=== PATIENT | male | born 1940 | race Caucasian/White ===

== ENCOUNTER 2016-12-04 09:38 | Outpatient (CLI) | payer MEDICARE, OTHER ==
[2016-12-04 17:55] LABS: BASOPHILS % (AUTO) 0.2 %; EOSINOPHILS # (AUTO) 0.1 10^3/uL (0.0-0.7); EOSINOPHILS % (AUTO) 3.2 %; HCT - HEMATOCRIT 40.9 % (42.0-52.0); HGB - HEMOGLOBIN 14.2 g/dL (14.0-18.0); LYMPHOCYTES # (AUTO) 1.3 10^3/uL (1.5-3.5); LYMPHOCYTES % (AUTO) 39.6 %; MEAN CORPUSCULAR HEMOGLOBIN 34.6 pg (27.0-31.0); MEAN CORPUSCULAR HGB CONC 34.6 g/dL (32.0-36.0); MEAN PLATELET VOLUME 7.9 fL (7.4-11.4); MONOCYTES # (AUTO) 0.1 10^3/uL (0.0-1.0); MONOCYTES % (AUTO) 3.7 %; NEUTROPHILS # (AUTO) 1.7 10^3/uL (1.5-6.6); NEUTROPHILS % (AUTO) 53.3 %; NUCLEATED RED BLOOD CELLS AUTO 0.2 /100WBC; RED CELL DISTRIBUTION WIDTH 14.2 % (12.0-15.0); UNCORRECTED WHITE BLOOD COUNT 3.2 x10^3/uL; WHITE BLOOD COUNT 3.2 x10^3/uL (4.8-10.8)
[2016-12-04 18:51] LABS: ALBUMIN/GLOBULIN RATIO 1.4 (1.0-2.2); BILIRUBIN,TOTAL 1.4 mg/dL (0.2-1.0); BUN - BLOOD UREA NITROGEN 15 mg/dL (6-20); CALCIUM 8.7 mg/dL (8.5-10.3); CARBON DIOXIDE - CO2 26 mmol/L (21-32); CHLORIDE 104 mmol/L (101-111); CHOL/HDL RATIO 2.3 (<5.0); CHOLESTEROL 126 mg/dL; CREATININE 0.8 mg/dL (0.6-1.2); GFR - MDRD 94 (>89); GLUCOSE 115 mg/dL (70-100); HDL CHOLESTEROL 54 mg/dL; LDL/HDL RATIO 1.2 (<3.6); POTASSIUM 4.4 mmol/L (3.5-5.0); SODIUM 137 mmol/L (135-145); TOTAL PROTEIN 6.4 g/dL (6.7-8.2); TRIGLYCERIDES 45 mg/dL; VLDL CHOLESTEROL 9 mg/dL
[2016-12-04 19:08] LABS: HEMOGLOBIN A1C 0.48 g/dL
== END 2016-12-04 09:39 | disposition home or self-care (01) ==
LOC: LAB.F 09:38
PROVIDERS: ATTEND Family Medicine
DX: I48.0 Paroxysmal atrial fibrillation (principal); R73.9 Hyperglycemia, unspecified; I25.10 Atherosclerotic heart disease of native coronary artery without angina pectoris; Z95.1 Presence of aortocoronary bypass graft
CPT/HCPCS: 36415; 80053; 80061; 82043; 83036; 85025; G0103; 84153

== ENCOUNTER 2017-04-22 16:00 | Outpatient (CLI) | payer MEDICARE, OTHER | END 2017-04-22 16:01 | disposition home or self-care (01) | LOC: DI 16:00 | PROVIDERS: ATTEND Internal Medicine Cardiovascular Disease | DX: Z53.9 Procedure and treatment not carried out, unspecified reason (principal) ==

== ENCOUNTER 2017-04-23 11:05 | Outpatient (CLI) | payer MEDICARE, OTHER | END 2017-04-23 11:06 | disposition home or self-care (01) | LOC: DI 11:05 | PROVIDERS: ATTEND Internal Medicine Cardiovascular Disease | DX: R06.00 Dyspnea, unspecified (principal); I51.9 Heart disease, unspecified; I35.0 Nonrheumatic aortic (valve) stenosis; I77.810 Thoracic aortic ectasia | CPT/HCPCS: 93306 ==

== ENCOUNTER 2017-05-20 09:36 | Outpatient (CLI) | payer MEDICARE, OTHER ==
[~2017-05-20 09:36] MED LIST: REGADENOSON 0.4 MG/5 ML SYRINGE IVP ONE
[2017-05-20] MEDS ORDERED: REGADENOSON 0.4 MG/5 ML SYRINGE IVP ONE (13:30)
--- NOTE | 2017-05-20 14:21 | Nuclear Medicine Report ---
EXAM: SINGLE-ISOTOPE PHARMACOLOGICAL STRESS TEST WITH REGADENOSON. SINGLE-ISOTOPE AND ONE-DAY REST/STRESS M YOCARDIAL PERFUSION SCANS WITH TOMOGRAPHIC IMAGING, QUANTITATIVE ANALYSIS, WALL MOTION ANALYSIS AND C ALCULATION OF EJECTION FRACTION. EXAM DATE: 05/20/2017 01:32 PM. CLINICAL HISTORY: Dyspnea on exertion, coronary artery disease. COMPARISON: None available. TECHNIQUE: After the intravenous administration of 10.4 mCi of Tc-99m sestamibi, a rest myocardial perfusion sca n was done with tomography. Motion correction was applied when appropriate. After an appropriate delay, pharmacological stress was performed with the infusion of 0.4 mg regadeno son per protocol. According to protocol, 43 mCi of Tc-99m sestamibi was injected for stress myocardia l perfusion scan. Motion correction was applied when appropriate. Gated tomographic images were obtained for wall motion analysis and computation of left ventricular e jection fraction. FINDINGS: Images show a small mild distal anteroseptal defect, larger on the rest images compared to the stress images, attributed to attenuation artifact. There is a small fixed inferior apical perfusi on defect. No convincing reversible perfusion defects are appreciated. Wall motion analysis demonstrates no focal wall motion abnormality. The left ventricular end-diastolic volume is 116 cc. The left ventricular end-systolic volume is 34 c c. The left ventricular ejection fraction is calculated to be 71%. IMPRESSION: 1. Small fixed apical perfusion defect versus apical thinning. No convincing reversible perfusion def ects. 2. Left ventricular ejection fraction of 71%. 3. Normal segmental and global wall motion. 4. Normal left ventricular cavity size, no change with stress. [facility] Referring Provider Line: [phone] SITE ID: [id number]
[2017-05-20 17:23] VITALS: BP 116/64
--- NOTE | 2017-05-20 18:16 | CARDIAC PROCEDURE NOTE ---
DATE OF SERVICE: 05/20/2017 Dee [address] [facility] PRIMARY CARE PHYSICIAN: Ray Morris MD AMBULANCE DRIVER PARAMEDIC: Iain Freitas MD PROCEDURE: Pharmacologic cardiac stress test. PROCEDURE SYMPTOMS PROCEDURE: Pharmacologic cardiac stress test. PROCEDURE SYMPTOMS: Dyspnea on exertion. CARDIAC RISK FACTORS: Include known coronary artery disease. He has had numerous previous cardiac procedures. CLINICAL HISTORY: A 76-year-old male with known coronary artery disease. He has no current symptoms. He has consumed no caffeine in over 24 hours and there were no pertinent medications needed to be held. INITIAL RESTING VITAL SIGNS: BP 116/64, heart rate 51, height 71 inches, weight 215 pounds, BMI 30.0. PROCEDURE AND FINDINGS: The patient identity and date verified, consent signed, pharmaceutical check. Pharmacologic stress testing was performed with Lexiscan at a dose of 0.4 mg over 10 seconds. The heart rate increased to 57 beats per minute from the infusion. Blood pressure response was normal during the stress procedure. The patient developed mild infusion- related symptoms, which included a "buzzy feeling" and increased tinnitus, and both resolved spontaneously. The resting ECG demonstrated normal sinus rhythm with a borderline first degree AV block, with no ST or T-wave changes. There was no ST segment depression with stress. Prior to the pharmaceutical being given, the patient had one PVC triplet with no recurrence. FINAL IMPRESSIONS 1. Negative electrocardiogram for ischemia in the setting of vasodilator stress. 2. Nondiagnostic stress test for angina. 3. One episode of PVC triplet. DISCUSSION AND RECOMMENDATIONS: Await myocardial perfusion report. TD: 05/20/2017 18:15 REBEKAH
== END 2017-05-20 09:37 | disposition home or self-care (01) ==
LOC: DI 09:36
PROVIDERS: ATTEND Internal Medicine Cardiovascular Disease
DX: I25.10 Atherosclerotic heart disease of native coronary artery without angina pectoris (principal); I48.91 Unspecified atrial fibrillation; R06.00 Dyspnea, unspecified
CPT/HCPCS: 78452; 93017; A9500; J2785; 93016; 93018

== ENCOUNTER 2017-05-31 10:05 | Outpatient (CLI) | payer MEDICARE, OTHER ==
[2017-05-31 19:16] LABS: BUN - BLOOD UREA NITROGEN 15 mg/dL (6-20); CALCIUM 8.6 mg/dL (8.5-10.3); CARBON DIOXIDE - CO2 26 mmol/L (21-32); CHLORIDE 104 mmol/L (101-111); CREATININE 0.7 mg/dL (0.6-1.2); GFR - MDRD 110 (>89); GLUCOSE 104 mg/dL (70-100); SODIUM 136 mmol/L (135-145)
[2017-05-31 19:17] LABS: BASOPHILS % (AUTO) 0.2 %; CRP - C-REACTIVE PROTEIN < 1.0 mg/dL (0-1.0); EOSINOPHILS # (AUTO) 0.1 10^3/uL (0.0-0.7); LYMPHOCYTES # (AUTO) 1.3 10^3/uL (1.5-3.5); MEAN CORPUSCULAR HEMOGLOBIN 34.3 pg (27.0-31.0); MEAN CORPUSCULAR HGB CONC 34.1 g/dL (32.0-36.0); MEAN CORPUSCULAR VOLUME 100.6 fL (80.0-94.0); MEAN PLATELET VOLUME 8.1 fL (7.4-11.4); MONOCYTES # (AUTO) 0.1 10^3/uL (0.0-1.0); MONOCYTES % (AUTO) 3.8 %; NEUTROPHILS # (AUTO) 1.1 10^3/uL (1.5-6.6); PLT - PLATELET COUNT 91 10^3/uL (130-450); RED BLOOD COUNT 4.07 10^6/uL (4.70-6.10); RED CELL DISTRIBUTION WIDTH 15.1 % (12.0-15.0); WHITE BLOOD COUNT 2.6 x10^3/uL (4.8-10.8)
[2017-05-31 21:02] LABS: RBC MORPHOLOGY (MULTIPLE) NORMAL APPEARANCE (NORMAL)
[2017-05-31 21:03] LABS: PLATELET ESTIMATE, MANUAL DECREASED (<130,000) (NORMAL); PLATELET MORPHOLOGY RARE GIANT PLATELETS (NORMAL)
== END 2017-05-31 10:06 | disposition home or self-care (01) ==
LOC: LAB.F 10:05
PROVIDERS: ATTEND Family Medicine
DX: M60.9 Myositis, unspecified (principal)
CPT/HCPCS: 36415; 80048; 85025; 85651; 86140

== ENCOUNTER 2017-08-25 14:53 | Outpatient (CLI) | payer MEDICARE, OTHER ==
--- NOTE | 2017-08-27 11:14 | MRI Report ---
Procedure Date: 08/25/2017 Accession Number: [id number] / [id number] Procedure: MRI - Lumbar Spine W/O CPT Code: FULL RESULT: EXAM: MRI LUMBAR SPINE WITHOUT CONTRAST EXAM DATE: 08/25/2017 02:55 PM. CLINICAL HISTORY: Low back pain. Bilateral leg numbness. COMPARISON: 01/24/2014 CT abdomen and pelvis. TECHNIQUE: Multiplanar, multisequence T1-weighted and fluid-sensitive sequences of the lumbar spine from T12 to S1 without contrast. Other: None. FINDINGS: Alignment: A mild rightward lumbar scoliosis has a Underwood angle of 16 degrees on this nonweightbearing examination. Spinal Canal: The conus terminates at L1-L2. The conus medullaris and cauda equina are unremarkable. Bone Marrow: The prior CT demonstrates 5 imb-kvy-hjpkcqy lumbar vertebral bodies. Edema within the inferior portion of the T10 vertebral body has an almost linear configuration on the T1-weighted images. This is best visualized on series 401 and 501, images 9 through 3. Findings are concerning for an incompletely visualized fracture. Type I endplate changes at L4-L5. Disk Levels/Facets: All visualized intervertebral disks are desiccated. T10-T11: A Schmorl's node is present. Anterior endplate spurring is seen. T11-T12: Anterior endplate spurring is present. A posterior disk protrusion results in minimal spinal canal narrowing. T12-l1: Unremarkable. L1-L2: Anterior endplate spurring is present. A mild posterior disk protrusion, moderate ligamentum flavum hypertrophy, and mild facet hypertrophy result in mild spinal canal and minimal bilateral foraminal narrowing. L2-L3: Anterior endplate spurring is present. A broad-based disk bulge, severe ligamentum flavum hypertrophy, and mild facet hypertrophy cause severe spinal canal and mild bilateral foraminal narrowing. A to P dimension of the thecal sac is only 4 mm and there is complete effacement of the CSF at this level. L3-L4: Moderate disk height loss is accompanied by anterior endplate spurring. A broad-based disk bulge, severe ligamentum flavum hypertrophy, and mild facet hypertrophy cause severe spinal canal, moderate right foraminal, and severe left foraminal narrowing. A to P dimension of the thecal sac is only 2 mm and there is near-complete effacement of the CSF at this level. L4-L5: Mild disk height loss is accompanied by anterior endplate spurring. A broad-based disk bulge, severe ligamentum flavum hypertrophy, and moderate facet hypertrophy cause severe spinal canal, severe right foraminal, and mild left foraminal narrowing. A to P dimension of the thecal sac is only 6 mm. L5-S1: Mild ligamentum flavum and facet hypertrophy cause minimal spinal canal narrowing. Mild foraminal area protrusion results in minimal left foraminal narrowing. Musculature: Normal. No edema or fatty atrophy. Other: A partially visualized T2 hyperintensity in the left kidney is shown on the prior CT to be a simple cyst. IMPRESSION: 1. Mild rightward lumbar scoliosis. 2. Edema and linear low T1 signal in the inferior T10 vertebral body is concerning for an incompletely visualized fracture. If the patient has focal pain in this region, recommend thoracic spine MRI for confirmation and further characterization. 3. Mild spinal canal narrowing at L1-L2 due to disk and posterior element degenerative changes. 4. Severe spinal canal and mild bilateral foraminal narrowing at L2-L3 due to disk and posterior element degenerative changes. 5. Severe spinal canal, moderate right foraminal, and severe left foraminal narrowing at L3-L4 due to disk and posterior element degenerative changes. 6. Severe spinal canal, severe right foraminal, and mild left foraminal narrowing at L4-L5 due to disk and posterior element degenerative changes. Comment: The following findings are so common in adults without low back pain that while we report their presence, they must be interpreted with caution and in the context of the clinical situation. (Reference Elizak et al, Spine 2001) Prevalence of findings in patients without low back pain: Disk degeneration (any evidence): 92% Disk desiccation/T2 signal loss: 83% Disk height loss: 56% Disk bulge: 64% Disk protrusion: 32% Annular tear/high intensity zone: 38% [facility]
== END 2017-08-25 14:54 | disposition home or self-care (01) ==
LOC: DI 14:53
PROVIDERS: ATTEND Orthopaedic Surgery
DX: M48.062 Spinal stenosis, lumbar region with neurogenic claudication (principal); M51.24 Other intervertebral disc displacement, thoracic region; M51.26 Other intervertebral disc displacement, lumbar region; M47.896 Other spondylosis, lumbar region; M51.36 Other intervertebral disc degeneration, lumbar region; M48.061 Spinal stenosis, lumbar region without neurogenic claudication; M41.86 Other forms of scoliosis, lumbar region
CPT/HCPCS: 72148

== ENCOUNTER 2017-11-02 09:37 | Outpatient (CLI) | payer MEDICARE, OTHER ==
[2017-11-02 19:59] LABS: BASOPHILS % (AUTO) 0.1 %; HGB - HEMOGLOBIN 13.2 g/dL (14.0-18.0); LYMPHOCYTES % (AUTO) 38.2 %; MEAN CORPUSCULAR HEMOGLOBIN 36.6 pg (27.0-31.0); MEAN CORPUSCULAR HGB CONC 35.6 g/dL (32.0-36.0); MEAN CORPUSCULAR VOLUME 102.8 fL (80.0-94.0); MEAN PLATELET VOLUME 8.4 fL (7.4-11.4); MONOCYTES % (AUTO) 2.9 %; NEUTROPHILS % (AUTO) 54.8 %; PLT - PLATELET COUNT 95 10^3/uL (130-450); RED CELL DISTRIBUTION WIDTH 14.1 % (12.0-15.0); WHITE BLOOD COUNT 2.7 x10^3/uL (4.8-10.8)
[2017-11-02 20:23] LABS: ALBUMIN 3.6 g/dL (3.2-5.5); ALBUMIN/GLOBULIN RATIO 1.2 (1.0-2.2); ALKALINE PHOSPHATASE 57 IU/L (42-121); ALT ALANINE AMINOTRANSFERASE 14 IU/L (10-60); AST ASPARTATE AMINOTRANSFERASE 20 IU/L (10-42); BILIRUBIN,TOTAL 1.8 mg/dL (0.2-1.0); BUN - BLOOD UREA NITROGEN 17 mg/dL (6-20); CALCIUM 8.6 mg/dL (8.5-10.3); CARBON DIOXIDE - CO2 27 mmol/L (21-32); CHLORIDE 104 mmol/L (101-111); CHOL/HDL RATIO 2.4 (<5.0); CHOLESTEROL 128 mg/dL; CREATININE 0.7 mg/dL (0.6-1.2); GFR - MDRD 109 (>89); GLUCOSE 109 mg/dL (70-100); HDL CHOLESTEROL 53 mg/dL; LDL CHOLESTEROL,CALCULATED 64 mg/dL; LDL/HDL RATIO 1.2 (<3.6); SODIUM 138 mmol/L (135-145); TOTAL PROTEIN 6.7 g/dL (6.7-8.2); VLDL CHOLESTEROL 11 mg/dL
[2017-11-02 20:32] LABS: INR 1.1 (0.8-1.2); PT - PROTHROMBIN TIME 12.7 secs (9.9-12.6)
[2017-11-02 20:37] LABS: ABNORMAL LYMPHS % (MANUAL) 0 %; BAND NEUTROPHILS % (MANUAL) 0 %
[2017-11-02 20:59] LABS: EOSINOPHILS # (MANUAL) 0.1 10^3/uL (0-0.7); LYMPHOCYTES # (MANUAL) 1.1 10^3/uL (1.5-3.5); LYMPHOCYTES % (MANUAL) 39 %; MONOCYTES # (MANUAL) 0.1 10^3/uL (0.0-1.0); NEUTROPHILS # (MANUAL) 1.4 10^3/uL (1.5-6.6); NEUTROPHILS % (MANUAL) 51 %; PLATELET ESTIMATE, MANUAL DECREASED (<130,000) (NORMAL); PLATELET MORPHOLOGY NORMAL APPEARANCE (NORMAL); RBC MORPHOLOGY (MULTIPLE) 3+ MACROCYTOSIS (NORMAL)
[2017-11-02 21:00] LABS: DIFFERENTIAL COMMENT MANUAL DIFFERENTIAL
== END 2017-11-02 09:38 | disposition home or self-care (01) ==
LOC: LAB.F 09:37
PROVIDERS: ATTEND Family Medicine
DX: I48.0 Paroxysmal atrial fibrillation (principal); E78.5 Hyperlipidemia, unspecified
CPT/HCPCS: 36415; 80053; 80061; 83721; 84443; 85025; 85610; 85730

== ENCOUNTER → 2017-11-08 | Outpatient (CLI) | payer MEDICARE, OTHER | LOC: LAB.F 08:00 | PROVIDERS: ATTEND Family Medicine | DX: D64.89 Other specified anemias (principal) ==

== ENCOUNTER 2017-11-09 14:30 | Outpatient (CLI) | payer MEDICARE, OTHER ==
[2017-11-09 17:55] LABS: MEAN RETIC VALUE 129.1; RED BLOOD COUNT 3.65 10^6/uL (4.70-6.10)
[2017-11-09 18:21] LABS: % IRON SATURATION 58 % (20-50); IRON 139 ug/dL (45-182); TOTAL IRON BINDING CAPACITY 241 ug/dL (250-450); TRANSFERRIN 172 mg/dL (180-329)
[2017-11-09 18:35] LABS: FERRITIN 223.8 ng/mL (23.9-336.2)
== END 2017-11-09 14:31 | disposition home or self-care (01) ==
LOC: LAB.F 14:30
PROVIDERS: ATTEND Family Medicine
DX: D64.89 Other specified anemias (principal)
CPT/HCPCS: 36415; 82607; 82728; 82746; 83540; 84466; 85044

== ENCOUNTER 2017-11-11 14:35 | Outpatient (CLI) | payer MEDICARE, OTHER | END 2017-11-11 23:59 | disposition home or self-care (01) | LOC: RT 14:35 | PROVIDERS: ATTEND Internal Medicine Cardiovascular Disease | DX: Z01.812 Encounter for preprocedural laboratory examination (principal); I25.119 Atherosclerotic heart disease of native coronary artery with unspecified angina pectoris; I48.0 Paroxysmal atrial fibrillation; I25.9 Chronic ischemic heart disease, unspecified | CPT/HCPCS: 93005 ==

== ENCOUNTER 2017-11-16 08:00 | Outpatient (CLI) | payer MEDICARE, OTHER | END 2017-11-16 08:01 | disposition home or self-care (01) | LOC: LAB.R 08:00 | PROVIDERS: ATTEND Family Medicine | DX: D64.89 Other specified anemias (principal) | CPT/HCPCS: 82270 ==

== ENCOUNTER 2017-12-30 12:54 | Outpatient (CLI) | payer MEDICARE, OTHER | END 2017-12-30 12:55 | disposition home or self-care (01) | LOC: RT 12:54 | PROVIDERS: ATTEND Internal Medicine Cardiovascular Disease | DX: I48.0 Paroxysmal atrial fibrillation (principal) | CPT/HCPCS: 93005 ==

== ENCOUNTER 2018-03-02 11:40 | Outpatient (CLI) | payer MEDICARE, OTHER ==
[2018-03-02 17:55] LABS: BASOPHILS % (AUTO) 0.2 %; EOSINOPHILS % (AUTO) 4.5 %; HGB - HEMOGLOBIN 13.3 g/dL (14.0-18.0); LYMPHOCYTES % (AUTO) 50.4 %; MEAN CORPUSCULAR HEMOGLOBIN 35.8 pg (27.0-31.0); MEAN CORPUSCULAR HGB CONC 34.2 g/dL (32.0-36.0); MEAN CORPUSCULAR VOLUME 104.5 fL (80.0-94.0); MEAN PLATELET VOLUME 8.1 fL (7.4-11.4); MONOCYTES % (AUTO) 3.6 %; NEUTROPHILS % (AUTO) 41.3 %; PLT - PLATELET COUNT 86 10^3/uL (130-450); RED BLOOD COUNT 3.71 10^6/uL (4.70-6.10); RED CELL DISTRIBUTION WIDTH 14.3 % (12.0-15.0); WHITE BLOOD COUNT 2.3 x10^3/uL (4.8-10.8)
[2018-03-02 19:19] LABS: ABNORMAL LYMPHS % (MANUAL) 2 %; BAND NEUTROPHILS % (MANUAL) 0 %; LYMPHOCYTES # (MANUAL) 1.1 10^3/uL (1.5-3.5); LYMPHOCYTES % (MANUAL) 35 %; MONOCYTES # (MANUAL) 0.2 10^3/uL (0.0-1.0); NEUTROPHILS % (MANUAL) 44 %
[2018-03-02 19:20] LABS: DIFFERENTIAL COMMENT MANUAL DIFFERENTIAL; PLATELET ESTIMATE, MANUAL NORMAL (130-450,000) (NORMAL); PLATELET MORPHOLOGY NORMAL APPEARANCE (NORMAL); RBC MORPHOLOGY (MULTIPLE) NORMAL APPEARANCE (NORMAL)
== END 2018-03-02 11:41 | disposition home or self-care (01) ==
LOC: LAB.F 11:40
PROVIDERS: ATTEND Internal Medicine
DX: D72.819 Decreased white blood cell count, unspecified (principal); D69.6 Thrombocytopenia, unspecified
CPT/HCPCS: 36415; 85025

== ENCOUNTER 2018-03-30 14:17 | Outpatient (CLI) | payer MEDICARE, OTHER ==
[2018-03-30 17:50] LABS: BASOPHILS % (AUTO) 0.1 %; EOSINOPHILS # (AUTO) 0.1 10^3/uL (0.0-0.7); EOSINOPHILS % (AUTO) 4.6 %; HGB - HEMOGLOBIN 13.8 g/dL (14.0-18.0); LYMPHOCYTES # (AUTO) 1.2 10^3/uL (1.5-3.5); LYMPHOCYTES % (AUTO) 47.8 %; MEAN CORPUSCULAR HEMOGLOBIN 36.4 pg (27.0-31.0); MEAN CORPUSCULAR VOLUME 101.1 fL (80.0-94.0); MEAN PLATELET VOLUME 8.1 fL (7.4-11.4); MONOCYTES # (AUTO) 0.1 10^3/uL (0.0-1.0); MONOCYTES % (AUTO) 3.5 %; NEUTROPHILS # (AUTO) 1.1 10^3/uL (1.5-6.6); PLT - PLATELET COUNT 92 10^3/uL (130-450); RED BLOOD COUNT 3.79 10^6/uL (4.70-6.10); RED CELL DISTRIBUTION WIDTH 14.3 % (12.0-15.0); WHITE BLOOD COUNT 2.4 x10^3/uL (4.8-10.8)
[2018-03-30 19:44] LABS: PLATELET ESTIMATE, MANUAL DECREASED (<130,000) (NORMAL); PLATELET MORPHOLOGY NORMAL APPEARANCE (NORMAL)
[2018-03-30 19:45] LABS: DIFFERENTIAL COMMENT MANUAL=AUTO DIFF
== END 2018-03-30 14:18 | disposition home or self-care (01) ==
LOC: LAB.F 14:17
PROVIDERS: ATTEND Internal Medicine
DX: D72.819 Decreased white blood cell count, unspecified (principal); D69.6 Thrombocytopenia, unspecified
CPT/HCPCS: 36415; 85025

== ENCOUNTER 2018-04-25 13:13 | Outpatient (CLI) | payer MEDICARE, OTHER ==
[2018-04-25 18:22] LABS: BASOPHILS % (AUTO) 0.2 %; EOSINOPHILS # (AUTO) 0.1 10^3/uL (0.0-0.7); EOSINOPHILS % (AUTO) 4.6 %; HGB - HEMOGLOBIN 13.3 g/dL (14.0-18.0); LYMPHOCYTES # (AUTO) 1.2 10^3/uL (1.5-3.5); LYMPHOCYTES % (AUTO) 43.4 %; MEAN CORPUSCULAR HEMOGLOBIN 35.4 pg (27.0-31.0); MEAN CORPUSCULAR HGB CONC 34.6 g/dL (32.0-36.0); MEAN CORPUSCULAR VOLUME 102.3 fL (80.0-94.0); MEAN PLATELET VOLUME 8.5 fL (7.4-11.4); MONOCYTES # (AUTO) 0.1 10^3/uL (0.0-1.0); NEUTROPHILS # (AUTO) 1.3 10^3/uL (1.5-6.6); NEUTROPHILS % (AUTO) 47.8 %; PLT - PLATELET COUNT 86 10^3/uL (130-450); RED BLOOD COUNT 3.76 10^6/uL (4.70-6.10); RED CELL DISTRIBUTION WIDTH 13.8 % (12.0-15.0); WHITE BLOOD COUNT 2.7 x10^3/uL (4.8-10.8)
[2018-04-25 20:14] LABS: PLATELET ESTIMATE, MANUAL DECREASED (<130,000) (NORMAL); PLATELET MORPHOLOGY NORMAL APPEARANCE (NORMAL); RBC MORPHOLOGY (MULTIPLE) NORMAL APPEARANCE (NORMAL)
== END 2018-04-25 13:14 | disposition home or self-care (01) ==
LOC: LAB.F 13:13
PROVIDERS: ATTEND Internal Medicine
DX: D72.819 Decreased white blood cell count, unspecified (principal); D69.6 Thrombocytopenia, unspecified
CPT/HCPCS: 36415; 85025

== ENCOUNTER 2018-05-26 02:47 | Emergency (ER) | payer MEDICARE, OTHER ==
--- NOTE | 2018-05-26 02:51 | ED Physician Documentation ---
PD HPI ABD PAIN - Stated complaint Stated Complaint: R SIDE PX - History obtained from History obtained from: Patient - History of Present Illness Timing - onset: Today (this evening shortly after eating) Timing - details: Abrupt onset, Waxing and waning Pain level now: 5 Quality: Pain Location: RUQ Radiation: No: Chest, , Lower back, Left flank, Left shoulder, Right flank, Right shoulder, Upper back Improved by: No: Eating, Laying still, Vomiting, BM, Position, Meds Worsened by: No: Eating, Moving, Breathing, Position, Palpation Associated symptoms: No: Fever, Nausea, Vomiting, Diarrhea, Constipation Similar symptoms before: No diagnosis (one similar episode in the past with inpatient workup (different hospital) but no diagnostic results) Review of Systems Constitutional: reports: Reviewed and negative Cardiac: reports: Reviewed and negative Respiratory: reports: Reviewed and negative GI: reports: Abdominal Pain, Nausea (resolved). denies: Vomiting, Constipation, Diarrhea : denies: Dysuria, Frequency Musculoskeletal: denies: Back pain PD PAST MEDICAL HISTORY - Past Medical History Cardiovascular: High cholesterol, Coronary artery disease, Angina Respiratory: None, Sleep apnea Endocrine/Autoimmune: None GI: GERD, Hepatitis : None HEENT: None Psych: Depression Musculoskeletal: None Derm: Other - Past Surgical History Past Surgical History: Yes Cardiovascular: CABG Derm: Skin cancer surgery - Present Medications Home Medications: Ambulatory Orders Medication Instructions Recorded Confirmed Aspirin [Aspir 81] 81 mg PO DAILY 09/11/13 09/12/14 Atorvastatin Calcium 40 mg PO DAILY 09/11/13 09/12/14 Bupropion HCl [Bupropion Xl] 150 mg PO BID 09/11/13 09/12/14 Carbidopa/Levodopa 25/100 [Sinemet 0 mg PO QPM 11/11/13 09/12/14 25 mg/100 mg] Finasteride 5 mg PO DAILY 11/11/13 09/12/14 C,E,Zinc,Copper 11/Kavjm2x/Lut 1 each PO 05/26/18 [Ocuvite Adult 50 Plus Softgel] Cholecalciferol (Vitamin D3) 2,000 unit PO 05/26/18 [Vitamin D] Esomeprazole Magnesium [Nexium] 05/26/18 Multivitamin/Iron/Folic Acid 05/26/18 [Centrum Adults Tablet] [place]-3/Dha/Epa/Fish Oil [Fish Oil 1 each PO 05/26/18 1,000 mg Softgel] Tolterodine Tartrate [Detrol] 4 mg PO 05/26/18 Ubidecarenone [Co Q10] 200 mg PO 05/26/18 - Allergies Allergies/Adverse Reactions: Allergies Allergy/AdvReac Type Severity Reaction Status Date / Time No Known Drug Allergies Allergy Verified 05/26/18 02:56 - Social History Does the pt smoke?: No Smoking Status: Never smoker Does the pt drink ETOH?: Yes Does the pt have substance abuse?: No - Immunizations Immunizations are current?: Yes - POLST Patient has POLST: No PD ED PE NORMAL - Vitals Vital signs reviewed: Yes - General General: Alert and oriented X 3, No acute distress, Well developed/nourished - HEENT HEENT: Moist mucous membranes - Neck Neck: Supple, no meningeal sign - Cardiac Cardiac: RRR, No murmur, No gallop, No rub - Respiratory Respiratory: No respiratory distress, Clear bilaterally - Abdomen Abdomen: Normal bowel sounds, Soft, Non tender, Non distended - Back Back: No CVA TTP - Derm Derm: Normal color, Warm and dry, No rash Results - Vitals Vitals: Oxygen O2 Source Room air - Labs Labs: Laboratory Tests 05/26/18 05/26/18 05/26/18 03:00 03:00 03:00 WBC 3.1 L RBC 3.54 L Hgb 12.5 L Hct 36.1 L MCV 102.0 H MCH 35.4 H MCHC 34.7 RDW 15.0 Plt Count 96 L MPV 7.2 L Neut # (Auto) 1.7 Lymph # (Auto) 1.2 L [place] # (Auto) 0.1 Eos # (Auto) 0.1 Baso # (Auto) 0.0 Absolute Nucleated RBC 0.00 Nucleated RBC % 0.1 PT 12.1 INR 1.1 APTT 27.0 Sodium 137 Potassium 3.8 Chloride 104 Carbon Dioxide 23 Anion Gap 10.0 BUN 19 Creatinine 0.8 Estimated GFR (MDRD) 94 Glucose 141 H Calcium 8.9 Total Bilirubin 0.7 AST 19 ALT < 10 L Alkaline Phosphatase 70 Total Protein 7.1 Albumin 3.8 Globulin 3.3 Albumin/Globulin Ratio 1.2 Lipase 25 - Rads (name of study) RUQ US Radiology: Prelim report reviewed, See rad report PD MEDICAL DECISION MAKING - ED course Complexity details: reviewed results, re-evaluated patient, considered differential, d/w patient Departure - Departure Disposition: 01 Home, Self Care Clinical Impression: Abdominal pain Condition: Good Instructions: ED Abdominal Pain Unkn Cause Male Follow-Up: Young Sousa MD [Primary Care Provider] - Within 1 week Discharge Date/Time: 05/26/18 06:20
[2018-05-26] MEDS ORDERED: SODIUM CHLORIDE 0.9% 500 ML IV STA (03:10)
[2018-05-26] MEDS ORDERED: HYDROmorphone 1 MG/ML CARPUJECT IVP STA (03:10)
[2018-05-26 03:17] LABS: BASOPHILS % (AUTO) 0.5 %; EOSINOPHILS # (AUTO) 0.1 10^3/uL (0.0-0.7); EOSINOPHILS % (AUTO) 3.2 %; HGB - HEMOGLOBIN 12.5 g/dL (14.0-18.0); LYMPHOCYTES # (AUTO) 1.2 10^3/uL (1.5-3.5); LYMPHOCYTES % (AUTO) 39.1 %; MEAN CORPUSCULAR HEMOGLOBIN 35.4 pg (27.0-31.0); MEAN CORPUSCULAR HGB CONC 34.7 g/dL (32.0-36.0); MEAN PLATELET VOLUME 7.2 fL (7.4-11.4); MONOCYTES # (AUTO) 0.1 10^3/uL (0.0-1.0); MONOCYTES % (AUTO) 3.2 %; NEUTROPHILS # (AUTO) 1.7 10^3/uL (1.5-6.6); PLT - PLATELET COUNT 96 10^3/uL (130-450); RED BLOOD COUNT 3.54 10^6/uL (4.70-6.10); WHITE BLOOD COUNT 3.1 x10^3/uL (4.8-10.8)
[2018-05-26 03:22] LABS: INR 1.1 (0.8-1.2); PT - PROTHROMBIN TIME 12.1 secs (9.9-12.6)
[2018-05-26 03:28] LABS: ALBUMIN 3.8 g/dL (3.2-5.5); ALBUMIN/GLOBULIN RATIO 1.2 (1.0-2.2); ALKALINE PHOSPHATASE 70 IU/L (42-121); ALT ALANINE AMINOTRANSFERASE < 10 IU/L (10-60); AST ASPARTATE AMINOTRANSFERASE 19 IU/L (10-42); BILIRUBIN,TOTAL 0.7 mg/dL (0.2-1.0); BUN - BLOOD UREA NITROGEN 19 mg/dL (6-20); CALCIUM 8.9 mg/dL (8.5-10.3); CARBON DIOXIDE - CO2 23 mmol/L (21-32); CHLORIDE 104 mmol/L (101-111); CREATININE 0.8 mg/dL (0.6-1.2); GFR - MDRD 94 (>89); GLUCOSE 141 mg/dL (70-100); LIPASE 25 U/L (22-51); SODIUM 137 mmol/L (135-145); TOTAL PROTEIN 7.1 g/dL (6.7-8.2)
--- NOTE | 2018-05-26 04:16 | Ultrasound Report ---
Reason: abd. pain Procedure Date: 05/26/2018 Accession Number: [id number] / [id number] Procedure: US - Abdomen Limited CPT Code: FULL RESULT: EXAM: ABDOMEN ULTRASOUND LIMITED, RUQ EXAM DATE: 05/26/2018 03:29 AM. CLINICAL HISTORY: Abd. pain. COMPARISON: ABDOMEN/PELVIS W/O 01/24/2014 7:59 PM. TECHNIQUE: Real-time scanning was performed with static images obtained. FINDINGS: Liver: Normal in size and echotexture. 16.5 cm. Main portal vein flow: Hepatopetal. Gallbladder: The gallbladder is distended, measuring 11 cm in length, with some wall thickening, measuring up to 6 mm. Localized tenderness is reported. No cholelithiasis or pericholecystic fluid. Biliary System: CBD measures 4 mm where seen. No intrahepatic or extrahepatic ductal dilatation. Other: No free fluid. No right hydronephrosis. IMPRESSION: Distended gallbladder, with wall thickening and localized tenderness, suspicious for acalculous cholecystitis. No evidence of biliary obstruction. [facility]
[2018-05-26 05:45] VITALS: BP 115/66
== END 2018-05-26 06:20 | disposition home or self-care (01) ==
LOC: ED 02:47
DX: R10.11 Right upper quadrant pain (principal); I25.10 Atherosclerotic heart disease of native coronary artery without angina pectoris; E78.00 Pure hypercholesterolemia, unspecified; K75.9 Inflammatory liver disease, unspecified; Z95.1 Presence of aortocoronary bypass graft; Z79.82 Long term (current) use of aspirin
CPT/HCPCS: 36415; 76705; 80053; 83690; 85025; 85610; 85730; 96361; 96374; 99283; J1170

== ENCOUNTER 2018-08-05 13:39 | Outpatient (CLI) | payer MEDICARE, OTHER ==
[2018-08-05 17:20] LABS: EOSINOPHILS # (AUTO) 0.1 10^3/uL (0.0-0.7); EOSINOPHILS % (AUTO) 4.5 %; HGB - HEMOGLOBIN 12.2 g/dL (14.0-18.0); LYMPHOCYTES # (AUTO) 1.1 10^3/uL (1.5-3.5); LYMPHOCYTES % (AUTO) 53.3 %; MEAN CORPUSCULAR HEMOGLOBIN 34.6 pg (27.0-31.0); MEAN CORPUSCULAR HGB CONC 33.2 g/dL (32.0-36.0); MEAN PLATELET VOLUME 10.5 fL (7.4-11.4); MONOCYTES # (AUTO) 0.1 10^3/uL (0.0-1.0); NEUTROPHILS # (AUTO) 0.8 10^3/uL (1.5-6.6); NEUTROPHILS % (AUTO) 37.7 %; PLT - PLATELET COUNT 76 10^3/uL (130-450); RED BLOOD COUNT 3.53 10^6/uL (4.70-6.10); RED CELL DISTRIBUTION WIDTH 14.2 % (12.0-15.0)
[2018-08-05 18:58] LABS: PLATELET ESTIMATE, MANUAL DECREASED (<130,000) (NORMAL); PLATELET MORPHOLOGY NORMAL APPEARANCE (NORMAL)
== END 2018-08-05 13:40 | disposition home or self-care (01) ==
LOC: LAB.F 13:39
PROVIDERS: ATTEND Internal Medicine
DX: D72.819 Decreased white blood cell count, unspecified (principal); D69.6 Thrombocytopenia, unspecified
CPT/HCPCS: 36415; 81599; 85025; 85613; 85730; 86146; 86147; 86148

== ENCOUNTER 2018-10-22 07:36 | Outpatient (CLI) | payer MEDICARE, OTHER ==
--- NOTE | 2018-10-23 12:01 | MRI Report ---
Reason: LUMBAR PAIN Procedure Date: 10/22/2018 Accession Number: [id number] / [id number] Procedure: MRI - Lumbar Spine W/O CPT Code: FULL RESULT: EXAM: MRI LUMBAR SPINE WITHOUT CONTRAST EXAM DATE: 10/22/2018 08:31 AM. CLINICAL HISTORY: Lumbar pain. COMPARISON: LUMBAR SPINE W/O 08/25/2017 2:55 PM. TECHNIQUE: Multiplanar, multisequence T1-weighted and fluid-sensitive sequences of the lumbar spine from T12 to S1 without contrast. Other: None. FINDINGS: Spinal Canal: The conus terminates at L1-L2. The conus medullaris and cauda equina are unremarkable. Alignment: Minimal 1-2 mm posterior subluxations at L2-L3 and L3-L4. Otherwise normal alignment. Mild lumbar curvature convex right. Slight degree of right lateral subluxation L3 on L4. Bone Marrow: Five nwx-wft-ramfcwm lumbar vertebral bodies are assumed. No acute fracture identified. There are postsurgical changes of laminectomy from L2-L3 through L4-L5. Disk Levels/Facets: T12-L1: Slight annular disk bulge and mild degenerative facet arthropathy without significant stenosis. L1-L2: Annular disk bulge and mild degenerative facet arthropathy with ligamentum flavum buckling. Mild central canal stenosis. Mild bilateral foraminal narrowing. Unchanged. L2-L3: Moderate facet arthropathy. Ligamentum flavum buckling. Annular disk bulge with left foraminal prominence. Mild central canal stenosis which is significantly improved from prior. Mild right greater than left foraminal stenosis unchanged. L3-L4: Annular disk bulge. Posterior decompression. Moderate facet arthropathy. No central canal stenosis. Moderate left greater than right foraminal stenosis unchanged. L4-L5: Annual disk bulge. Moderate facet arthropathy. Posterior decompression. No central canal stenosis. Severe right and moderate left foraminal stenosis similar to prior. L5-S1: Mild degenerative facet arthropathy and slight annular disk bulge with mild bilateral foraminal stenosis unchanged. Musculature: Mild atrophy of the lower paraspinous muscles. Other: Unremarkable. IMPRESSION: 1. Postsurgical changes of laminectomy from L2-L3 through L4-L5. 2. L2-L3 mild central canal stenosis significantly improved from prior. Mild right greater than left foraminal stenosis unchanged. 3. L3-L4 moderate left greater than right foraminal stenosis unchanged. 4. L4-L5 severe right and moderate left foraminal stenosis unchanged. Comment: The following findings are so common in adults without low back pain that while we report their presence, they must be interpreted with caution and in the context of the clinical situation. (Reference Brad et al, Spine 2001) Prevalence of findings in patients without low back pain: Disk degeneration (any evidence): 92% Disk desiccation/T2 signal loss: 83% Disk height loss: 56% Disk bulge: 64% Disk protrusion: 32% Annular tear/high intensity zone: 38% [facility]
== END 2018-10-22 07:37 | disposition home or self-care (01) ==
LOC: DI 07:36
PROVIDERS: ATTEND Orthopaedic Surgery
DX: M47.816 Spondylosis without myelopathy or radiculopathy, lumbar region (principal); M51.36 Other intervertebral disc degeneration, lumbar region; M48.061 Spinal stenosis, lumbar region without neurogenic claudication
CPT/HCPCS: 72148

== ENCOUNTER 2018-10-27 09:39 | Outpatient (CLI) | payer MEDICARE, OTHER ==
[2018-10-27 09:58] LABS: EOSINOPHILS # (AUTO) 0.1 10^3/uL (0.0-0.7); EOSINOPHILS % (AUTO) 4.1 %; HGB - HEMOGLOBIN 11.5 g/dL (14.0-18.0); LYMPHOCYTES # (AUTO) 1.2 10^3/uL (1.5-3.5); LYMPHOCYTES % (AUTO) 60.1 %; MEAN CORPUSCULAR HEMOGLOBIN 37.6 pg (27.0-31.0); MEAN CORPUSCULAR VOLUME 107.5 fL (80.0-94.0); MEAN PLATELET VOLUME 9.9 fL (7.4-11.4); MONOCYTES # (AUTO) 0.1 10^3/uL (0.0-1.0); MONOCYTES % (AUTO) 3.6 %; NEUTROPHILS % (AUTO) 32.2 %; PLT - PLATELET COUNT 61 10^3/uL (130-450); RED BLOOD COUNT 3.06 10^6/uL (4.70-6.10); RED CELL DISTRIBUTION WIDTH 14.5 % (12.0-15.0)
[2018-10-27 10:26] LABS: NEUTROPHILS # (AUTO) 0.6 10^3/uL (1.5-6.6); PLATELET MORPHOLOGY RARE GIANT PLATELETS (NORMAL); WHITE BLOOD COUNT 1.9 x10^3/uL (4.8-10.8)
== END 2018-10-27 09:40 | disposition home or self-care (01) ==
LOC: LAB 09:39
PROVIDERS: ATTEND Internal Medicine
DX: D72.819 Decreased white blood cell count, unspecified (principal); D69.6 Thrombocytopenia, unspecified
CPT/HCPCS: 36415; 81599; 83516; 85025; 85613; 85730

== ENCOUNTER 2018-12-20 01:05 | Emergency (ER) | payer MEDICARE, OTHER ==
--- NOTE | 2018-12-20 01:35 | ED Physician Documentation ---
PD HPI ABD PAIN - Stated complaint Stated Complaint: ABD PX - Chief complaint Chief Complaint: Abd Pain - History obtained from History obtained from: Patient - History of Present Illness Timing - onset: How many hours ago (3) Timing - duration: Hours (3) Timing - details: Abrupt onset, Constant Pain level now: 8 Quality: Pain Location: RUQ Radiation: Other (does not radiate) Improved by: Other (no ameliorating factors) Worsened by: Other (no exacerbating factors) Associated symptoms: Nausea. No: Fever, Vomiting, Diarrhea, Constipation Similar symptoms before: Work up / diagnostics (T+R from this ED 05/26/18 for same symptoms, w/u at that time was s/o acalculous cholecystitis. He has not had symptoms between then and [facility]) Recently seen: Not recently seen Review of Systems Constitutional: denies: Fever, Chills, Sweats Cardiac: reports: Reviewed and negative Respiratory: reports: Reviewed and negative GI: reports: Abdominal Pain, Nausea. denies: Vomiting, Constipation, Diarrhea : denies: Dysuria, Frequency, Hematuria Musculoskeletal: denies: Back pain PD PAST MEDICAL HISTORY - Past Medical History Cardiovascular: High cholesterol, Coronary artery disease, Angina Respiratory: None, Sleep apnea Endocrine/Autoimmune: None GI: GERD, Hepatitis : None HEENT: None Psych: Depression Musculoskeletal: None Derm: Other - Past Surgical History Past Surgical History: Yes Ortho: Other Cardiovascular: CABG Derm: Skin cancer surgery - Present Medications Home Medications: Ambulatory Orders Medication Instructions Recorded Confirmed Aspirin [Aspir 81] 81 mg PO DAILY 09/11/13 09/12/14 Atorvastatin Calcium 40 mg PO DAILY 09/11/13 09/12/14 Bupropion HCl [Bupropion Xl] 150 mg PO BID 09/11/13 09/12/14 Carbidopa/Levodopa 25/100 [Sinemet 0 mg PO QPM 11/11/13 09/12/14 25 mg/100 mg] Finasteride 5 mg PO DAILY 11/11/13 09/12/14 C,E,Zinc,Copper 11/Fuoxs8c/Lut 1 each PO 05/26/18 [Ocuvite Adult 50 Plus Softgel] Cholecalciferol (Vitamin D3) 2,000 unit PO 05/26/18 [Vitamin D] Esomeprazole Magnesium [Nexium] 05/26/18 Multivitamin/Iron/Folic Acid 05/26/18 [Centrum Adults Tablet] [place]-3/Dha/Epa/Fish Oil [Fish Oil 1 each PO 05/26/18 1,000 mg Softgel] Tolterodine Tartrate [Detrol] 4 mg PO 05/26/18 Ubidecarenone [Co Q10] 200 mg PO 05/26/18 oxyCODONE [Roxicodone] 5 mg PO Q4-6H PRN #14 tablet 12/20/18 - Allergies Allergies/Adverse Reactions: Allergies Allergy/AdvReac Type Severity Reaction Status Date / Time No Known Drug Allergies Allergy Verified 12/20/18 01:18 - Social History Does the pt smoke?: No Smoking Status: Never smoker Does the pt drink ETOH?: Yes Does the pt have substance abuse?: No - Immunizations Immunizations are current?: Yes - POLST Patient has POLST: No PD ED PE NORMAL - Vitals Vital signs reviewed: Yes - General General: Alert and oriented X 3, Well developed/nourished, Other (appears to be in moderate painful distress) - HEENT HEENT: Moist mucous membranes - Cardiac Cardiac: RRR - Respiratory Respiratory: No respiratory distress, Clear bilaterally - Abdomen Abdomen: Soft, Non tender, Non distended - Back Back: No CVA TTP - Derm Derm: Normal color, Warm and dry, No rash PD ED PE EXPANDED - Cardiac Cardiac: Murmur Present (2/6 AUDIE greatest at right 2nd ICS) Results - Vitals Vitals: Oxygen O2 Source Room air - Labs Labs: Laboratory Tests 12/20/18 12/20/18 01:34 01:34 WBC 1.7 L* RBC 2.84 L Hgb 10.5 L Hct 30.9 L MCV 108.8 H MCH 37.0 H MCHC 34.0 RDW 14.9 Plt Count 53 L MPV 11.2 Neut # (Auto) Not Reportable Lymph # (Auto) Not Reportable [place] # (Auto) Not Reportable Eos # (Auto) Not Reportable Baso # (Auto) Not Reportable Absolute Nucleated RBC Not Reportable Total Counted 100 Band Neuts % (Manual) 0 Abnorm Lymph % (Manual) 0 Nucleated RBC % Not Reportable Neutrophils # (Manual) 0.7 L Lymphocytes # (Manual) 0.9 L Monocytes # (Manual) 0.0 Eosinophils # (Manual) 0.0 Basophils # (Manual) 0.0 Differential Comment MANUAL DIFFERENTIAL WBC Morphology NORMAL APPEARANCE Platelet Estimate DECREASED (<130,000) Platelet Morphology NORMAL APPEARANCE RBC Morph Micro Appear NORMAL APPEARANCE Sodium 139 Potassium 3.6 Chloride 105 Carbon Dioxide 24 Anion Gap 10.0 BUN 15 Creatinine 1.0 Estimated GFR (MDRD) 72 L Glucose 145 H Calcium 9.2 Total Bilirubin 1.5 H AST 20 ALT 17 Alkaline Phosphatase 53 Total Protein 7.2 Albumin 4.0 Globulin 3.2 Albumin/Globulin Ratio 1.3 Lipase 29 - Rads (name of study) RUQ US Radiology: Prelim report reviewed, See rad report PD MEDICAL DECISION MAKING - ED course Complexity details: reviewed old records, reviewed results, re-evaluated patient, considered differential, d/w patient, d/w family ED course: pancytopenia which is not new and not significantly changed since previous results; this is being followed by his hem/onc physician. As with previous ED visit, his US is s/o acalculous cholecystitis. He had resolution of his pain with a single dose of 0.5 mg dilaudid. results d/w patient and he is comfortable with d/c home, return if worse, f/u with PMD Departure - Departure Disposition: Home, Self Care Clinical Impression: Biliary colic Condition: Good Instructions: ED Abdominal Pain Gallstone Poss Follow-Up: Segundo Jones MD [Provider Admit Priv/Credential] - Tommy Berger MD [Primary Care Provider] - Prescriptions: oxyCODONE [Roxicodone] 5 mg PO Q4-6H PRN #14 tablet PRN Reason: Pain Discharge Date/Time: 12/20/18 04:46
[2018-12-20] MEDS ORDERED: ONDANSETRON 4 MG/2 ML VIAL IVP STA (01:48)
[2018-12-20] MEDS ORDERED: HYDROmorphone 1 MG/ML CARPUJECT IVP STA (01:49)
[2018-12-20 01:56] LABS: EOSINOPHILS % (AUTO) 3.5 %; HGB - HEMOGLOBIN 10.5 g/dL (14.0-18.0); LYMPHOCYTES % (AUTO) 55.6 %; MEAN CORPUSCULAR VOLUME 108.8 fL (80.0-94.0); MEAN PLATELET VOLUME 11.2 fL (7.4-11.4); MONOCYTES % (AUTO) 3.5 %; NEUTROPHILS % (AUTO) 37.4 %; PLT - PLATELET COUNT 53 10^3/uL (130-450); RED BLOOD COUNT 2.84 10^6/uL (4.70-6.10); RED CELL DISTRIBUTION WIDTH 14.9 % (12.0-15.0)
[2018-12-20] MEDS ORDERED: SODIUM CHLORIDE 0.9% 1,000 ML IV STA (01:58)
[2018-12-20 02:00] LABS: WHITE BLOOD COUNT 1.7 x10^3/uL (4.8-10.8)
[2018-12-20 02:02] LABS: ALBUMIN/GLOBULIN RATIO 1.3 (1.0-2.2); BILIRUBIN,TOTAL 1.5 mg/dL (0.2-1.0); CALCIUM 9.2 mg/dL (8.5-10.3); TOTAL PROTEIN 7.2 g/dL (6.7-8.2)
[2018-12-20 02:03] LABS: ABNORMAL LYMPHS % (MANUAL) 0 %; BAND NEUTROPHILS % (MANUAL) 0 %
[2018-12-20 02:14] LABS: LYMPHOCYTES # (MANUAL) 0.9 10^3/uL (1.5-3.5); LYMPHOCYTES % (MANUAL) 53 %
[2018-12-20 02:15] LABS: RBC MORPHOLOGY (MULTIPLE) NORMAL APPEARANCE (NORMAL)
[2018-12-20 02:16] LABS: DIFFERENTIAL COMMENT MANUAL DIFFERENTIAL; PLATELET ESTIMATE, MANUAL DECREASED (<130,000) (NORMAL); PLATELET MORPHOLOGY NORMAL APPEARANCE (NORMAL)
--- NOTE | 2018-12-20 03:30 | Ultrasound Report ---
Reason: abd. pain Procedure Date: 12/20/2018 Accession Number: [id number] / [id number] Procedure: US - Abdomen Limited CPT Code: Final Report FULL RESULT: EXAM: ABDOMEN ULTRASOUND LIMITED, RUQ EXAM DATE: 12/20/2018 02:50 AM. CLINICAL HISTORY: Right upper quadrant pain. Elevated bilirubin. COMPARISON: ABDOMEN LIMITED 05/26/2018 3:29 AM. TECHNIQUE: Real-time scanning was performed with static images obtained. FINDINGS: Liver: Echogenic. 16.6 cm. Main portal vein flow: Hepatopetal. Gallbladder: Distended gallbladder. Small amount of sludge. No shadowing gallstones are identified. Wall thickening at 4.6 mm. Trace pericholecystic fluid. Patient was medicated and gallbladder tenderness not confidently assessed. Biliary System: CBD measures 5.4 mm. No intrahepatic or extrahepatic ductal dilatation. Other: Right kidney measures 12.6 cm. No hydronephrosis is seen. Trace amount of perinephric fluid is noted. Inferior vena cava is patent where seen. Pancreas is not well seen. IMPRESSION: 1. Distended gallbladder with wall thickening and trace pericholecystic fluid. Small amount of sludge but no shadowing stones identified. Cannot exclude acalculous cholecystitis. 2. No biliary dilatation seen. 3. Possible fatty liver. 4. No right hydronephrosis seen. There is trace perinephric fluid. [facility]
[2018-12-20 04:44] VITALS: BP 122/76
== END 2018-12-20 04:46 | disposition home or self-care (01) ==
LOC: ED 01:05
DX: K80.50 Calculus of bile duct without cholangitis or cholecystitis without obstruction (principal); D72.819 Decreased white blood cell count, unspecified; D69.6 Thrombocytopenia, unspecified
CPT/HCPCS: 36415; 76705; 80053; 83690; 85025; 85610; 96361; 96374; 99284; J1170

== ENCOUNTER 2018-12-20 12:36 | Outpatient (CLI) | payer MEDICARE, OTHER | END 2018-12-20 12:37 | disposition home or self-care (01) | LOC: LAB 12:36 | PROVIDERS: ATTEND Internal Medicine | DX: D72.819 Decreased white blood cell count, unspecified (principal); D69.6 Thrombocytopenia, unspecified | CPT/HCPCS: 85610 ==

== ENCOUNTER 2018-12-24 23:00 | Inpatient (IN) | payer MEDICARE, OTHER ==
[2018-12-25 00:25] LABS: BASOPHILS % (AUTO) 0.6 %; EOSINOPHILS % (AUTO) 1.7 %; HGB - HEMOGLOBIN 10.7 g/dL (14.0-18.0); MEAN CORPUSCULAR HEMOGLOBIN 38.2 pg (27.0-31.0); MEAN CORPUSCULAR VOLUME 109.3 fL (80.0-94.0); MEAN PLATELET VOLUME 10.7 fL (7.4-11.4); MONOCYTES % (AUTO) 3.9 %; NEUTROPHILS % (AUTO) 56.8 %; PLT - PLATELET COUNT 57 10^3/uL (130-450); RED CELL DISTRIBUTION WIDTH 14.7 % (12.0-15.0)
[2018-12-25] MEDS ORDERED: HYDROmorphone 2 MG/ML VIAL IVP STA (00:25)
[2018-12-25] MEDS ORDERED: ONDANSETRON 4 MG/2 ML VIAL IVP STA (00:26)
[2018-12-25 00:27] LABS: WHITE BLOOD COUNT 1.8 x10^3/uL (4.8-10.8)
[2018-12-25 00:28] LABS: ABNORMAL LYMPHS % (MANUAL) 0 %; BAND NEUTROPHILS % (MANUAL) 0 %
[2018-12-25 00:42] LABS: ALBUMIN/GLOBULIN RATIO 1.3 (1.0-2.2); BILIRUBIN,TOTAL 1.4 mg/dL (0.2-1.0); CREATININE 0.8 mg/dL (0.6-1.2); TOTAL PROTEIN 7.2 g/dL (6.7-8.2)
[2018-12-25 00:43] LABS: LYMPHOCYTES # (MANUAL) 0.7 10^3/uL (1.5-3.5); LYMPHOCYTES % (MANUAL) 41 %
[2018-12-25 00:44] LABS: DIFFERENTIAL COMMENT MANUAL DIFFERENTIAL; PLATELET ESTIMATE, MANUAL DECREASED (<130,000) (NORMAL); PLATELET MORPHOLOGY NORMAL APPEARANCE (NORMAL); RBC MORPHOLOGY (MULTIPLE) NORMAL APPEARANCE (NORMAL)
--- NOTE | 2018-12-25 01:59 | ED Physician Documentation ---
PD HPI ABD PAIN - Stated complaint Stated Complaint: VOM/ABD PX - Chief complaint Chief Complaint: Abd Pain - History obtained from History obtained from: Patient, Family - History of Present Illness Timing - onset: How many days ago (5) Timing - details: Abrupt onset, Intermittant, Waxing and waning Pain level max: 10 Pain level now: 10 Quality: Pain Location: RUQ Radiation: Right flank Improved by: Other (no ameliorating factors) Worsened by: Palpation Associated symptoms: Nausea. No: Fever, Vomiting, Diarrhea, Constipation Recently seen: Emergency Dept - Additional information Additional information: c/o severe RUQ pain, waxing and waning, with mild nausea but no vomiting. He had similar episode in May of this year, and was T+R from this ED at that time after w/u revealed distended GB but no other concerning findings; at that time, he had complete resolution of his pain with 0.5mg IV dilaudid and he says he did not have symptom recurrence until 12/20 (5 days ago), when he again presented to this ED and had similar outcome. His testing 5 days ago included US that again demonstrated GB dilatation, wall thickening, trace pericholecystic fluid, as well as sludge but no calculi. He again had resolution of his symptoms with 0.5mg IV dilaudid (also given zofran IV). Blood tests demonstrated pancytopenia which is not new, not significantly changed from previous, and w/u is ongoing with his hem/onc physician (patient and say patient has been told the suspected diagnosis is MDS). He was discharged with rx for oxycodone and zofran. Unfortunately, he has had several more episodes since being discharged which have not responded to the prescriptions provided, and tonight the pain became s evere and he could not even keep medications down due to n/v. Review of Systems Constitutional: reports: Reviewed and negative Eyes: reports: Reviewed and negative Ears: reports: Reviewed and negative Nose: reports: Reviewed and negative Throat: reports: Reviewed and negative Cardiac: reports: Reviewed and negative Respiratory: reports: Reviewed and negative GI: reports: Abdominal Pain, Nausea, Vomiting. denies: Constipation, Diarrhea : denies: Dysuria, Frequency Skin: reports: Reviewed and negative Musculoskeletal: reports: Reviewed and negative Neurologic: reports: Reviewed and negative PD PAST MEDICAL HISTORY - Past Medical History Past Medical History: Yes Cardiovascular: High cholesterol, Coronary artery disease, Angina, Atrial fibrillation Respiratory: Sleep apnea Neuro: None Endocrine/Autoimmune: None GI: GERD, Hepatitis : None HEENT: None Psych: Depression Musculoskeletal: None Derm: None - Past Surgical History Past Surgical History: Yes Ortho: Other Cardiovascular: CABG Derm: Skin cancer surgery - Present Medications Home Medications: Ambulatory Orders Medication Instructions Recorded Confirmed Aspirin [Aspir 81] 81 mg PO DAILY 09/11/13 12/25/18 Atorvastatin Calcium 40 mg PO QPM 09/11/13 12/25/18 Carbidopa/Levodopa 25/100 [Sinemet 1 tab PO QPM 11/11/13 12/25/18 25 mg/100 mg] Finasteride 5 mg PO DAILY 11/11/13 12/25/18 Tolterodine Tartrate [Detrol] 4 mg PO DAILY 05/26/18 12/25/18 - Allergies Allergies/Adverse Reactions: Allergies Allergy/AdvReac Type Severity Reaction Status Date / Time No Known Drug Allergies Allergy Verified 12/24/18 23:12 - Social History Does the pt smoke?: No Smoking Status: Never smoker Does the pt drink ETOH?: Yes Does the pt have substance abuse?: No - Immunizations Immunizations are current?: Yes Immunizations: TDAP >10years/unknown - POLST Patient has POLST: No PD ED PE NORMAL - Vitals Vital signs reviewed: Yes - General General: Alert and oriented X 3, Well developed/nourished, Other (obvious painful distress, wincing and at times moaning during H+P due to pain) - HEENT HEENT: PERRL, EOMI, Moist mucous membranes - Neck Neck: Supple, no meningeal sign - Cardiac Cardiac: RRR, No murmur - Respiratory Respiratory: No respiratory distress, Clear bilaterally - Abdomen Abdomen: Soft, Non distended, Other (mild/moderate RUQ tenderness) - Back Back: No CVA TTP - Derm Derm: Normal color, Warm and dry, No rash - Extremities Extremities: No edema - Neuro Neuro: Alert and oriented X 3 Results - Vitals Vitals: Vital Signs - 24 hr 12/24/18 12/25/18 12/25/18 23:09 02:33 07:43 Temperature 36.4 C L 36.7 C Heart Rate 56 L 51 L 65 Respiratory 18 15 15 Rate Blood Pressure 146/71 H 143/63 H 142/75 H O2 Saturation 98 98 99 12/25/18 12/25/18 12/25/18 08:10 09:29 09:30 Temperature 37 C Heart Rate 70 70 69 Respiratory 16 16 23 Rate Blood Pressure 139/73 H 141/71 H 143/69 H O2 Saturation 97 99 100 12/25/18 12/25/18 09:35 09:40 Temperature 36.7 C Heart Rate 68 66 Respiratory 19 16 Rate Blood Pressure 143/64 H 137/73 H O2 Saturation 100 98 Oxygen O2 Source Room air - Labs Labs: Laboratory Tests 12/25/18 12/25/18 12/25/18 00:15 00:15 00:15 WBC 1.8 L* RBC 2.80 L Hgb 10.7 L Hct 30.6 L MCV 109.3 H MCH 38.2 H MCHC 35.0 RDW 14.7 Plt Count 57 L MPV 10.7 Neut # (Auto) Not Reportable Lymph # (Auto) Not Reportable [place] # (Auto) Not Reportable Eos # (Auto) Not Reportable Baso # (Auto) Not Reportable Absolute Nucleated RBC Not Reportable Total Counted 100 Band Neuts % (Manual) 0 Abnorm Lymph % (Manual) 0 Nucleated RBC % Not Reportable Neutrophils # (Manual) 1.0 L Lymphocytes # (Manual) 0.7 L Monocytes # (Manual) 0.0 Eosinophils # (Manual) 0.0 Basophils # (Manual) 0.0 Differential Comment MANUAL DIFFERENTIAL WBC Morphology NORMAL APPEARANCE Platelet Estimate DECREASED (<130,000) Platelet Morphology NORMAL APPEARANCE RBC Morph Micro Appear NORMAL APPEARANCE Sodium 135 Potassium 3.8 Chloride 101 Carbon Dioxide 22 Anion Gap 12.0 BUN 16 Creatinine 0.8 Estimated GFR (MDRD) 93 Glucose 149 H Calcium 9.0 Total Bilirubin 1.4 H AST 20 ALT 21 Alkaline Phosphatase 62 Total Protein 7.2 Albumin 4.0 Globulin 3.2 Albumin/Globulin Ratio 1.3 Amylase 37 Lipase 25 PD MEDICAL DECISION MAKING - ED course Complexity details: reviewed old records, reviewed results, re-evaluated patient, considered differential, d/w patient, d/w family ED course: patient had minimal improvement with 0.5mg IV dilaudid. Given second dose along with IV toradol. His pain improved but did not resolve. Labs are again reassuring (in that abnormalities are comparable to previous). D/W Dr. Mayes, will evaluate patient in ED in AM, will likely perform cholecystectomy later today Departure - Departure Disposition: ED Transfer to [facility] Clinical Impression: Acalculous cholecystitis Condition: Good Discharge Date/Time: 12/25/18 08:11
[2018-12-25] MEDS ORDERED: HYDROmorphone 1 MG/ML CARPUJECT IVP STA (02:09)
[2018-12-25] MEDS ORDERED: KETOROLAC 30 MG/ML VIAL IVP STA (02:09)
[2018-12-25] MEDS ORDERED: PIPERACILLIN/TAZOBACTAM 3.375 GM in SODIUM CHLORIDE 0.9% MINIBAG 100 ML IV STA (07:56)
[2018-12-25] MEDS ORDERED: ROCURONIUM 50 MG/5 ML VIAL IVP ONE (08:00)
[2018-12-25] MEDS ORDERED: fentaNYL 250 MCG/5 ML VIAL IVP ONE (08:00)
[2018-12-25] MEDS ORDERED: ePHEDrine 50 MG/ML VIAL IVP ONE (08:00)
[2018-12-25] MEDS ORDERED: MIDAZOLAM 2 MG/2 ML VIAL IVP ONE (08:00)
[2018-12-25] MEDS ORDERED: ONDANSETRON 4 MG/2 ML VIAL IVP ONE (08:00)
[2018-12-25] MEDS ORDERED: GLYCOPYRROLATE 1 MG/5 ML VIAL IVP ONE (08:00)
[2018-12-25] MEDS ORDERED: NEOSTIGMINE 1 MG/1 ML 10 ML MDV IVP ONE (08:00)
[2018-12-25] MEDS ORDERED: PROPOFOL 200 MG/20 ML VIAL IVP ONE (08:00)
--- NOTE | 2018-12-25 08:02 | ANESTHESIA ---
Pre-Anesthesia VS, & Labs - Diagnosis Acute Cholecystitis - Procedure Lap Shayy Vital Signs: Temp Pulse Resp BP Pulse Ox 36.7 C 65 15 142/75 H 99 12/25/18 07:43 12/25/18 07:43 12/25/18 07:43 12/25/18 07:43 12/25/18 07:43 Height 5 ft 11 in Weight (kg) 90.718 kg Body Mass Index 27.8 - NPO >8 hours - Lab Results Current Lab Results: Laboratory Tests 12/25/18 00:15: Amylase 37 12/25/18 00:15: Sodium 135, Potassium 3.8, Chloride 101, Carbon Dioxide 22, Anion Gap 12.0, BUN 16, Creatinine 0.8, Estimated GFR (MDRD) 93, Glucose 149 H, Calcium 9.0, Total Bilirubin 1.4 H, AST 20, ALT 21, Alkaline Phosphatase 62, Total Protein 7.2, Albumin 4.0, Globulin 3.2, Albumin/Globulin Ratio 1.3, Lipase 25 12/25/18 00:15: WBC 1.8 L*, RBC 2.80 L, Hgb 10.7 L, Hct 30.6 L, MCV 109.3 H, MCH 38.2 H, MCHC 35.0, RDW 14.7, Plt Count 57 L, MPV 10.7, Neut # (Auto) Not Reportable, Lymph # (Auto) Not Reportable, [place] # (Auto) Not Reportable, Eos # (Auto) Not Reportable, Baso # (Auto) Not Reportable, Absolute Nucleated RBC Not Reportable, Total Counted 100, Band Neuts % (Manual) 0, Abnorm Lymph % (Manual) 0, Nucleated RBC % Not Reportable, Neutrophils # (Manual) 1.0 L, Lymphocytes # (Manual) 0.7 L, Monocytes # (Manual) 0.0, Eosinophils # (Manual) 0.0, Basophils # (Manual) 0.0, Differential Comment MANUAL DIFFERENTIAL, WBC Morphology NORMAL APPEARANCE, Platelet Estimate DECREASED (<130,000), Platelet Morphology NORMAL APPEARANCE, RBC Morph Micro Appear NORMAL APPEARANCE Fish Bones: 12/25/18 00:15 12/25/18 00:15 Home Medications and Allergies Active Medications Piperacillin Sod/Tazobactam (Sod 3.375 gm/ Sodium Chloride) 100 mls @ 200 mls/hr IV ONCE STA Stop: 12/25/18 08:25 Aspirin [Aspir 81] 81 mg PO DAILY 09/11/13 Atorvastatin Calcium 40 mg PO DAILY 09/11/13 Bupropion HCl [Bupropion Xl] 150 mg PO BID 09/11/13 Carbidopa/Levodopa 25/100 [Sinemet 25 mg/100 mg] 0 mg PO QPM 11/11/13 Finasteride 5 mg PO DAILY 11/11/13 C,E,Zinc,Copper 11/Oealz8o/Lut [Ocuvite Adult 50 Plus Softgel] 1 each PO 05/26/18 Cholecalciferol (Vitamin D3) [Vitamin D] 2,000 unit PO 05/26/18 Esomeprazole Magnesium [Nexium] 05/26/18 Multivitamin/Iron/Folic Acid [Centrum Adults Tablet] 05/26/18 [place]en-3/Dha/Epa/Fish Oil [Fish Oil 1,000 mg Softgel] 1 each PO 05/26/18 Tolterodine Tartrate [Detrol] 4 mg PO 05/26/18 Ubidecarenone [Co Q10] 200 mg PO 05/26/18 Allergies/Adverse Reactions: Allergies Allergy/AdvReac Type Severity Reaction Status Date / Time No Known Drug Allergies Allergy Verified 12/24/18 23:12 Anes History & Medical History - Anesthetic History Anesthesia Complications: reports: No previous complications - Medical History Cardiovascular: reports: High cholesterol, Coronary artery disease, Angina, Atrial fibrillation Pulmonary: reports: Sleep apnea (Does not use cpap) Gastrointestinal: reports: GERD, Hepatitis Urinary: reports: None Neuro: reports: None, Other (Restless leg syndrome) Musculoskeletal: reports: None Endocrine/Autoimmune: reports: None Blood Disorders: reports: Anemia (MDS) Skin: reports: None Smoking Status: Former smoker (Quit in 1980s) Psychosocial: reports: Depression, Alcohol (once per week) - Surgical History Cardiothoracic: CABG Orthopedic: Spine surgery, Other (cervical bone spur) Dermatologic: Skin cancer surgery Results - EKG Results EKG Comparison: Reviewed EKG - Echo Results Echo Results: Report reviewed Exam General: Alert, Oriented x3, Cooperative, No acute distress Dental: Loose/Frag Mouth Openin Fingerbreadth Neck Mobility: Normal Mallampati classification: II Thyromental Distance: 4-6 cm Respiratory: Lungs clear, Normal breath sounds, No respiratory distress, No accessory muscle use Cardiovascular: Regular rate, Normal S1, Normal S2, No murmurs Mental/Cognitive Status: Alert/Oriented X3, Normal for patient Plan Anesthesia Type: General Consent for Procedure(s) Verified and Reviewed: Yes Code Status: Attempt Resuscitation ASA classification: 3-Severe systemic disease Is this case an emergency?: Yes
--- NOTE | 2018-12-25 08:07 | HISTORY & PHYSICAL EXAMINATION ---
HPI - Admitted From Admitted from: ED - History Obtained From Records Reviewed: Old records reviewed History obtained from: Patient Exam limitations: No limitations - History of Present Illness Severity at the worst: reports: Severe Pain Quality: reports: Sharp, Aching Context-Pain started w/: reports: Eating, Rest Timing: reports: Gradual onset, Intermittent Duration: reports: Days: (Intermittent episodes for the past 2 weeks. A similar episode in May though not as severe as this one.) Improved with: reports: Nothing Worsened by: reports: Movement Associated symptoms: reports: Nausea HPI Comment/Other: Very pleasant 78-year-old gentleman who presented to the emergency room with s evere right upper quadrant pain. He was diagnosed with a calculus cholecystitis in May of this year at our facility. He has had 2 ultrasounds in the past showing sludge and pericholecystic fluid. He was last seen here on the and was given antibiotics and oxycodone for pain. He reports he was taking the medication because he had severe pain but when the pain outstripped the medications ability to help him, he decided to present to the emergency room. He reports that he is quite miserable. PMH/PSH - Past Medical History Cardiovascular: positive: High cholesterol, Coronary artery disease, Angina (Prior to CABG. No angina in many years. 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 Doesn't know what type) : positive: None HEENT: positive: None Psych: positive: Depression Musculoskeletal: positive: None Derm: positive: None MRSA Hx?: No Other Past Medical History: Myelodysplastic syndrome. Had a bone marrow biopsy 2 days ago. - Past Surgical History Ortho: positive: Spine surgery, Other (cervical bone spur) Cardiovascular: positive: CABG Derm: positive: Skin cancer surgery Social & Family Hx - Social History Does the pt smoke?: No Smoking Status: Never smoker Does the pt drink ETOH?: Yes Does the pt have substance abuse?: No - POLST Patient has POLST: No Meds/Allgy - Home Medications Home Medications: Ambulatory Orders Medication Instructions Recorded Confirmed Aspirin [Aspir 81] 81 mg PO DAILY 09/11/13 09/12/14 Atorvastatin Calcium 40 mg PO DAILY 09/11/13 09/12/14 Bupropion HCl [Bupropion Xl] 150 mg PO BID 09/11/13 09/12/14 Carbidopa/Levodopa 25/100 [Sinemet 0 mg PO QPM 11/11/13 09/12/14 25 mg/100 mg] Finasteride 5 mg PO DAILY 11/11/13 09/12/14 C,E,Zinc,Copper 11/Vmzdc3h/Lut 1 each PO 05/26/18 [Ocuvite Adult 50 Plus Softgel] Cholecalciferol (Vitamin D3) 2,000 unit PO 05/26/18 [Vitamin D] Esomeprazole Magnesium [Nexium] 05/26/18 Multivitamin/Iron/Folic Acid 05/26/18 [Centrum Adults Tablet] [place]-3/Dha/Epa/Fish Oil [Fish Oil 1 each PO 05/26/18 1,000 mg Softgel] Tolterodine Tartrate [Detrol] 4 mg PO 05/26/18 Ubidecarenone [Co Q10] 200 mg PO 05/26/18 oxyCODONE [Roxicodone] 5 mg PO Q4-6H PRN #14 tablet 12/20/18 - Allergies Allergies/Adverse Reactions: Allergies Allergy/AdvReac Type Severity Reaction Status Date / Time No Known Drug Allergies Allergy Verified 12/24/18 23:12 Review of Systems - Constitutional Constitutional: reports: Fatigue, Weakness, Poor appetite - Eyes Eyes: denies: Pain, Blurred vision - Ears, Nose & Throat Ears, Nose & Throat: denies: Tinnitus, Vertigo - Cardiovascular Cariovascular: reports: Lightheadedness, Exertional dyspnea. denies: Irregular heart rate, Palpitations, Chest pain - Respiratory Respiratory: denies: Cough, Sputum production, Wheezing - Gastrointestinal Gastrointestinal: reports: Abdominal pain, Nausea (Severe right upper quadrand pain) Exam - Vital Signs Reviewed Vital Signs: Yes Vital Signs: Vital Signs x48h Temp Pulse Resp BP Pulse Ox 12/25/18 07:43 36.7 C 65 15 142/75 H 99 12/25/18 02:33 51 L 15 143/63 H 98 - Physical Exam General Appearance: positive: Alert, Moderate distress Eyes Bilateral: positive: Normal inspection, PERRL, EOMI ENT: positive: ENT inspection nml, Pharynx nml, No signs of dehydration Neck: positive: Nml inspection, Thyroid nml, No JVD Respiratory: positive: Chest non-tender, No respiratory distress, Breath sounds nml Cardiovascular: positive: Regular rate & rhythm, No murmur Peripheral Pulses: positive: 0 Abdomen: positive: Other (Soft but markedly tender to palpation in the right upper quadrant. Exam is positive for rebound and guarding. No abominal incisions or hernias are appreciated.) Back: positive: Nml inspection. negative: CVA tenderness (R), CVA tenderness (L) Skin: positive: No rash, Warm, Dry, Pallor Extremities: positive: No pedal edema Neurologic/Psychiatric: positive: Oriented x3, CN's nml (2-12) Results - Lab Results Fish Bones: 12/25/18 00:15 12/25/18 00:15 Other Lab Results: Lab Results x24hrs 12/25/18 12/25/18 12/25/18 Range/Units 00:15 00:15 00:15 WBC 1.8 L* (4.8-10.8) x10^3/uL RBC 2.80 L (4.70-6.10) 10^6/uL Hgb 10.7 L (14.0-18.0) g/dL Hct 30.6 L (42.0-52.0) % MCV 109.3 H (80.0-94.0) fL MCH 38.2 H (27.0-31.0) pg MCHC 35.0 (32.0-36.0) g/dL RDW 14.7 (12.0-15.0) % Plt Count 57 L (130-450) 10^3/uL MPV 10.7 (7.4-11.4) fL Neut # (Auto) Not Reportable Lymph # (Auto) Not Reportable [place] # (Auto) Not Reportable Eos # (Auto) Not Reportable Baso # (Auto) Not Reportable Absolute Nucleated RBC Not Reportable Total Counted 100 Band Neuts % (Manual) 0 (0 - 10) % Abnorm Lymph % (Manual) 0 % Nucleated RBC % Not Reportable Neutrophils # (Manual) 1.0 L (1.5-6.6) 10^3/uL Lymphocytes # (Manual) 0.7 L (1.5-3.5) 10^3/uL Monocytes # (Manual) 0.0 (0.0-1.0) 10^3/uL Eosinophils # (Manual) 0.0 (0-0.7) 10^3/uL Basophils # (Manual) 0.0 (0-0.1) 10^3/uL Differential Comment MANUAL DIFFERENTIAL WBC Morphology NORMAL APPEARANCE (NORMAL) Platelet Estimate DECREASED (<130,000) (NORMAL) Platelet Morphology NORMAL APPEARANCE (NORMAL) RBC Morph Micro Appear NORMAL APPEARANCE (NORMAL) Sodium 135 (135-145) mmol/L Potassium 3.8 (3.5-5.0) mmol/L Chloride 101 (101-111) mmol/L Carbon Dioxide 22 (21-32) mmol/L Anion Gap 12.0 (6-13) BUN 16 (6-20) mg/dL Creatinine 0.8 (0.6-1.2) mg/dL Estimated GFR (MDRD) 93 (>89) Glucose 149 H (70-100) mg/dL Calcium 9.0 (8.5-10.3) mg/dL Total Bilirubin 1.4 H (0.2-1.0) mg/dL AST 20 (10-42) IU/L ALT 21 (10-60) IU/L Alkaline Phosphatase 62 (42-121) IU/L Total Protein 7.2 (6.7-8.2) g/dL Albumin 4.0 (3.2-5.5) g/dL Globulin 3.2 (2.1-4.2) g/dL Albumin/Globulin Ratio 1.3 (1.0-2.2) Amylase 37 (28-100) U/L Lipase 25 (22-51) U/L - Diagnostic Imaging Results Diagnostic Imaging Results Comments: Final Report PT NAME: MACK WATT MR#: [id number] REG ER/ED AGE: 78 CI DT/TM: 12/20/1807/04/147 PCP: Tommy Berger MD : 1940 ATT: SEX: M ORD: Wilton ho MD EXAM: [id number] US/ABDLTD ([id number]) Reason: abd. pain Procedure Date: 12/20/2018 Accession Number: [id number] / [id number] Procedure: US - Abdomen Limited CPT Code: Final Report FULL RESULT: EXAM: ABDOMEN ULTRASOUND LIMITED, RUQ EXAM DATE: 12/20/2018 02:50 AM. CLINICAL HISTORY: Right upper quadrant pain. Elevated bilirubin. COMPARISON: ABDOMEN LIMITED 05/26/2018 3:29 AM. TECHNIQUE: Real-time scanning was performed with static images obtained. FINDINGS: Liver: Echogenic. 16.6 cm. Main portal vein flow: Hepatopetal. Gallbladder: Distended gallbladder. Small amount of sludge. No shadowing gallstones are identified. Wall thickening at 4.6 mm. Trace pericholecystic fluid. Patient was medicated and gallbladder tenderness not confidently assessed. Biliary System: CBD measures 5.4 mm. No intrahepatic or extrahepatic ductal dilatation. Other: Right kidney measures 12.6 cm. No hydronephrosis is seen. Trace amount of perinephric fluid is noted. Inferior vena cava is patent where seen. Pancreas is not well seen. IMPRESSION: 1. Distended gallbladder with wall thickening and trace pericholecystic fluid. Small amount of sludge but no shadowing stones identified. Cannot exclude acalculous cholecystitis. 2. No biliary dilatation seen. 3. Possible fatty liver. 4. No right hydronephrosis seen. There is trace perinephric fluid. [facility] Manifest/Order Organizer Print Orders: Reading Radiologist: Marbin Stanton MD Releasing Radiologist: Marbin Stanton MD Released Date Time: 12/20/18321 Report 1 cc: Tommy Berger MD; Wilton Johnson MD Principal Solution Coordinator Name: Marbin Stanton Provider ID: [id number] Impression/Plan - Problem List Problem List: Acute cholecystitis and cholelithiasis. We have discussed the risks and benefits of cholecystectomy. Mr. Potterul us aware that he is at greater than average risk for bleeding due to MDS leukopenia and thrombocytopenia. After consideration of the risks and benefits, he has elected to proceed with surgery this morning. We will plan to discharge him to the care of his if all goes as planned.
[2018-12-25] MEDS ORDERED: LIDOCAINE MPF 1%-EPI 1:200000 30 ML VIAL ONE (08:11)
[2018-12-25] MEDS ORDERED: BUPIVACAINE 0.5% PF 30 ML VIAL ONE (08:12)
[2018-12-25] MEDS ORDERED: LACTATED RINGERS 1,000 ML IV ONE ×2 (08:17→09:18)
[2018-12-25] MEDS ORDERED: BUPIVACAINE 0.5% PF 30 ML VIAL INFIL ONE ×2 (08:46)
[2018-12-25] MEDS ORDERED: LIDOCAINE 1%-EPI 1:100000 30 ML MDV SUBQ ONE ×2 (08:48)
--- NOTE | 2018-12-25 09:40 | OPERATIVE REPORT ---
Operative Report - General Procedure Date: 12/25/18 Planned Procedure: Laparoscopic Cholecystectomy Pre-Op Diagnosis: Acute cholecystitis Procedure Performed: Laparoscopic Cholecystectomy Post Op Diagnosis: Acute cholecystitis - Procedure Note Primary Surgeon: Sugey Anesthesia Provider: CARROL Richard Anesthesia Technique: General ET tube, Local Pathology: Gall bladder to pathology in formalin Estimated Blood Loss (mL): 100 Drain/Tube Type: Abhijit drain (19 F drain in the gall bladder fossa) Findings: Acute cholecystitis with hydrops of the gall bladder Complications: None apparent - Other Other Information/Narrative: After obtaining informed consent, the patient was brought to the operating room and placed in the supine position on the operating table. Following successful induction of general endotracheal anesthesia, appropriate padding of all bony prominences, and placement of appropriate monitors, the abdomen was prepped and draped in the standard surgical fashion. A timeout was held per scope protocol. All elements of the surgical safety checklist were followed before, during, and after the procedure. Following infiltration with local anesthetic to create a field block, an incision was created inferior to the umbilicus and carried down through the skin and subcutaneous tissue to reveal the fascia below. 2-0 Vicryl retention sutures were placed on either side of the midline and the abdomen was entered under direct vision. A 10 mm blunt Garcia balloon trocar was placed in the abdominal cavity and it was insufflated to 15 mmHg pressure. The patient was placed in reverse Trendelenburg position with the left side rotated toward the floor. We were immediately able to visualize a distended and abnormal appearing grayish gallbladder in the right upper quadrant. A 5 mm trocar was placed in the epigastrium and 2 more in the right upper quadrant. All were placed after infiltration with local anesthetic. The fundus of the gallbladder was grasped and elevated up over the liver revealing the region of the cholecysto hepatoduodenal ligament. The wall of the gallbladder was noted to be very edematous and fibrotic. With some careful dissection, we were able to identify the cystic duct and artery as well as the common duct. The cystic duct was clipped 3 times proximally once distally and divided in the artery clipped twice proximally once distally and divided. The gallbladder was then liberated from its bed in the liver using cautery. The patient had a notable enlarged amount of blood loss due to a elongated clotting time. This is most likely due to his low platelet count. The bed of the gallbladder was irrigated copiously with warm saline solution and aspirated free of all fluid and particulate matter. Due to the continued slow oozing of blood from the gallbladder fossa, I elected to place a piece of Surgicel in this region. A 19 Spanish Abhijit drain was also placed in the gallbladder fossa and brought out throughout right upper quadrant port site. This was placed more for surveillance due to the place in patient's fragile state and significant thrombocytopenia.The drain was sewn into place with nylon suture.The umbilical incision was closed with interrupted Vicryl sutures and Monocryl was placed in all the skin incisions. All sponge, needle, and instrument counts were correct at the conclusion of the case. The wounds were dressed with Dermabond. The patient was allowed to awaken from anesthesia without difficulty and taken to the postanesthesia care unit in good condition.
[2018-12-25] MEDS ORDERED: SODIUM CHLORIDE FLUSH 0.9% 10 ML SYRINGE IVP PRN (09:41)
[2018-12-25] MEDS ORDERED: HYDROmorphone 1 MG/ML CARPUJECT IVP PRN (09:45)
[2018-12-25] MEDS ORDERED: ONDANSETRON 4 MG/2 ML VIAL IVP PRN (09:45)
[2018-12-25] MEDS: LACTATED RINGERS 1,000 ML IV SCH (10:45)
[2018-12-25] MEDS: TOLTERODINE LA 2 MG CAPSULE PO SCH (11:52)
[2018-12-25] MEDS: oxyCODONE 5 MG TABLET PO PRN ×3 (11:52→18:14)
[2018-12-25] MEDS: PANTOPRAZOLE 40 MG TABLET PO SCH (11:52)
[2018-12-25] MEDS ORDERED: PIPERACILLIN/TAZOBACTAM 3.375 GM in SODIUM CHLORIDE 0.9% MINIBAG 100 ML IV SCH (12:00)
[2018-12-25] MEDS: ACETAMINOPHEN 325 MG TABLET PO PRN (13:12)
[2018-12-25] MEDS: PIPERACILLIN/TAZOBACTAM 3.375 GM in SODIUM CHLORIDE 0.9% MINIBAG 100 ML IV SCH ×2 (14:28→20:50)
[2018-12-25] MEDS: SODIUM CHLORIDE FLUSH 0.9% 10 ML SYRINGE IVP SCH ×2 (18:14→23:46)
[2018-12-25] MEDS: CARBIDOPA/LEVODOPA 25 MG/100 MG TABLET PO SCH (20:51)
[2018-12-25] MEDS: buPROPion XL 150 MG TABLET PO SCH (20:51)
[2018-12-26] MEDS: PIPERACILLIN/TAZOBACTAM 3.375 GM in SODIUM CHLORIDE 0.9% MINIBAG 100 ML IV SCH ×3 (01:48→17:51)
[2018-12-26] MEDS: LACTATED RINGERS 1,000 ML IV SCH (03:29)
[2018-12-26] MEDS: ACETAMINOPHEN 325 MG TABLET PO PRN (04:34)
[2018-12-26 06:03] LABS: LYMPHOCYTES # (AUTO) 0.6 10^3/uL (1.5-3.5); LYMPHOCYTES % (AUTO) 35.2 %; MEAN CORPUSCULAR HEMOGLOBIN 36.9 pg (27.0-31.0); MEAN CORPUSCULAR HGB CONC 32.4 g/dL (32.0-36.0); MEAN CORPUSCULAR VOLUME 113.9 fL (80.0-94.0); MEAN PLATELET VOLUME 10.4 fL (7.4-11.4); MONOCYTES # (AUTO) 0.1 10^3/uL (0.0-1.0); MONOCYTES % (AUTO) 4.8 %; NEUTROPHILS % (AUTO) 59.4 %; PLT - PLATELET COUNT 42 10^3/uL (130-450); RED BLOOD COUNT 1.87 10^6/uL (4.70-6.10); RED CELL DISTRIBUTION WIDTH 15.3 % (12.0-15.0)
[2018-12-26 06:05] LABS: HGB - HEMOGLOBIN 6.9 g/dL (14.0-18.0); WHITE BLOOD COUNT 1.7 x10^3/uL (4.8-10.8)
[2018-12-26 06:09] LABS: ALBUMIN 2.9 g/dL (3.2-5.5); ALBUMIN/GLOBULIN RATIO 1.1 (1.0-2.2); BILIRUBIN,TOTAL 2.4 mg/dL (0.2-1.0); CREATININE 0.8 mg/dL (0.6-1.2); TOTAL PROTEIN 5.5 g/dL (6.7-8.2)
[2018-12-26] MEDS: PANTOPRAZOLE 40 MG TABLET PO SCH (06:20)
[2018-12-26 06:28] LABS: PLATELET ESTIMATE, MANUAL DECREASED (<130,000) (NORMAL)
[2018-12-26 06:35] LABS: PLATELET MORPHOLOGY NORMAL APPEARANCE (NORMAL); RBC MORPHOLOGY (MULTIPLE) NORMAL APPEARANCE (NORMAL)
[2018-12-26] MEDS ORDERED: FUROSEMIDE 20 MG/2 ML VIAL IVP PRN (08:57)
[2018-12-26] MEDS ORDERED: diphenhydrAMINE 25 MG CAPSULE PO ONE (08:57)
[2018-12-26] MEDS: oxyCODONE 5 MG TABLET PO PRN ×3 (09:05→20:22)
[2018-12-26] MEDS: FINASTERIDE 5 MG TABLET PO SCH (09:06)
[2018-12-26] MEDS: buPROPion XL 150 MG TABLET PO SCH ×2 (09:07→20:23)
[2018-12-26] MEDS: TOLTERODINE LA 2 MG CAPSULE PO SCH (09:07)
[2018-12-26] MEDS: ASPIRIN EC 81 MG TABLET PO SCH (09:07)
[2018-12-26] MEDS: SODIUM CHLORIDE FLUSH 0.9% 10 ML SYRINGE IVP SCH ×2 (09:08→17:03)
[2018-12-26 09:34] LABS: HGB - HEMOGLOBIN 7.5 g/dL (14.0-18.0)
[2018-12-26 09:39] LABS: INR 1.5 (0.8-1.2); PT - PROTHROMBIN TIME 16.4 secs (9.9-12.6)
--- NOTE | 2018-12-26 16:15 | PROVIDER PROGRESS NOTE ---
Subjective - General Admit Date: 12/25/18 Procedure Date: 12/25/18 Post Op Days: 1 Procedure Performed: Eliz olivares - Review of Systems Wound/Incisions: positive: Healing well Drain Type: 19 F Abhijit with sanguinous drainage Approximate mls Output: 450 General: positive: Fatigue HEENT: positive: No symptoms Pulmonary: positive: No symptoms Cardiovascular: positive: No symptoms Gastrointestinal: positive: Other (Abdominal pain at incision sites and when taking a deep breath) Genitourinary: positive: Other (Unable to urinate) Musculoskeletal: positive: Shoulder pain Objective - Patient Data Vital Signs: Vital Signs x48h Temp Pulse Pulse Resp BP BP Pulse Ox 12/26/18 13:35 36.9 C 66 16 112/49 L 12/26/18 13:25 36.7 C 68 15 107/55 L 12/26/18 13:20 36.9 C 66 16 100/52 L 12/26/18 11:45 39.7 C H 65 18 111/66 95 Weight: Weight 12/24/18 12/25/18 12/26/18 23:59 23:59 23:59 Weight (kg) 90.718 kg 90.718 kg Intake & Output: Intake and Output Totals x24h 12/24/18 12/25/18 12/26/18 23:59 23:59 23:59 Intake Total 1080 2741.667 Output Total 155 490 Balance 925 2251.667 - Lab Results Lab Results: 12/26/18 09:23 12/26/18 05:30 Other Lab Results: Lab Results x24hrs 12/26/18 12/26/18 12/26/18 Range/Units 09:23 09:23 09:23 WBC (4.8-10.8) x10^3/uL RBC (4.70-6.10) 10^6/uL Hgb 7.5 L (14.0-18.0) g/dL Hct 22.8 L (42.0-52.0) % MCV (80.0-94.0) fL MCH (27.0-31.0) pg MCHC (32.0-36.0) g/dL RDW (12.0-15.0) % Plt Count (130-450) 10^3/uL MPV (7.4-11.4) fL Neut # (Auto) (1.5-6.6) 10^3/uL Lymph # (Auto) (1.5-3.5) 10^3/uL [place] # (Auto) (0.0-1.0) 10^3/uL Eos # (Auto) (0.0-0.7) 10^3/uL Baso # (Auto) (0.0-0.1) 10^3/uL Absolute Nucleated RBC x10^3/uL Nucleated RBC % /100WBC Manual Slide Review Platelet Estimate (NORMAL) Platelet Morphology (NORMAL) RBC Morph Micro Appear (NORMAL) PT 16.4 H (9.9-12.6) secs INR 1.5 H (0.8-1.2) Sodium (135-145) mmol/L Potassium (3.5-5.0) mmol/L Chloride (101-111) mmol/L Carbon Dioxide (21-32) mmol/L Anion Gap (6-13) BUN (6-20) mg/dL Creatinine (0.6-1.2) mg/dL Estimated GFR (MDRD) (>89) Glucose (70-100) mg/dL Calcium (8.5-10.3) mg/dL Total Bilirubin (0.2-1.0) mg/dL AST (10-42) IU/L ALT (10-60) IU/L Alkaline Phosphatase (42-121) IU/L Total Protein (6.7-8.2) g/dL Albumin (3.2-5.5) g/dL Globulin (2.1-4.2) g/dL Albumin/Globulin Ratio (1.0-2.2) Blood Type O POSITIVE Blood Type Recheck Antibody Screen NEGATIVE Crossmatch IS Only See Detail 12/26/18 12/26/18 12/26/18 Range/Units 05:30 05:30 05:30 WBC 1.7 L* (4.8-10.8) x10^3/uL RBC 1.87 L (4.70-6.10) 10^6/uL Hgb 6.9 L* (14.0-18.0) g/dL Hct 21.3 L (42.0-52.0) % MCV 113.9 H (80.0-94.0) fL MCH 36.9 H (27.0-31.0) pg MCHC 32.4 (32.0-36.0) g/dL RDW 15.3 H (12.0-15.0) % Plt Count 42 L (130-450) 10^3/uL MPV 10.4 (7.4-11.4) fL Neut # (Auto) 1.0 L (1.5-6.6) 10^3/uL Lymph # (Auto) 0.6 L (1.5-3.5) 10^3/uL [place] # (Auto) 0.1 (0.0-1.0) 10^3/uL Eos # (Auto) 0.0 (0.0-0.7) 10^3/uL Baso # (Auto) 0.0 (0.0-0.1) 10^3/uL Absolute Nucleated RBC 0.00 x10^3/uL Nucleated RBC % 0.0 /100WBC Manual Slide Review Indicated Platelet Estimate DECREASED (<130,000) (NORMAL) Platelet Morphology NORMAL APPEARANCE (NORMAL) RBC Morph Micro Appear NORMAL APPEARANCE (NORMAL) PT (9.9-12.6) secs INR (0.8-1.2) Sodium 136 (135-145) mmol/L Potassium 4.2 (3.5-5.0) mmol/L Chloride 104 (101-111) mmol/L Carbon Dioxide 27 (21-32) mmol/L Anion Gap 5.0 L (6-13) BUN 19 (6-20) mg/dL Creatinine 0.8 (0.6-1.2) mg/dL Estimated GFR (MDRD) 93 (>89) Glucose 124 H (70-100) mg/dL Calcium 8.0 L (8.5-10.3) mg/dL Total Bilirubin 2.4 H (0.2-1.0) mg/dL AST 31 (10-42) IU/L ALT 18 (10-60) IU/L Alkaline Phosphatase 35 L (42-121) IU/L Total Protein 5.5 L (6.7-8.2) g/dL Albumin 2.9 L (3.2-5.5) g/dL Globulin 2.6 (2.1-4.2) g/dL Albumin/Globulin Ratio 1.1 (1.0-2.2) Blood Type Blood Type Recheck O POSITIVE Antibody Screen Crossmatch IS Only - Current Medications Current Medications: Current Medications Generic Name Dose Route Start Last Admin Trade Name Freq PRN Reason Stop Dose Admin Acetaminophen 650 mg 12/25/18 09:45 12/26/18 04:34 Tylenol PO 650 mg Q4HR PRN Administration PAIN Aspirin 81 mg 12/26/18 09:00 12/26/18 09:07 Ecotrin PO 81 mg DAILY DAVID Administration Bupropion HCl 150 mg 12/25/18 21:00 12/26/18 09:07 Wellbutrin Xl PO 150 mg BID DAVID Administration Carbidopa/Levodopa 1 tab 12/25/18 21:00 12/25/18 20:51 Sinemet 25 Mg/100 Mg PO 1 tab QPM DAVID Administration Finasteride 5 mg 12/26/18 09:00 12/26/18 09:06 Proscar PO 5 mg DAILY DAVID Administration Hydromorphone HCl 0.5 mg 12/25/18 09:45 12/26/18 11:32 Dilaudid Inj Carp IVP 0.5 mg Q2HR PRN Administration PAIN Lactated Ringer's 1,000 mls @ 50 mls/hr 12/25/18 10:00 12/26/18 03:29 Lr IV 50 mls/hr .Q20H DAVID Administration Oxycodone HCl 5 mg 12/25/18 09:45 12/26/18 13:48 Roxicodone PO 5 mg Q3HR PRN Administration PAIN Pantoprazole Sodium 40 mg 12/25/18 10:00 12/26/18 06:20 Protonix PO 40 mg QDAC DAVID Administration Sodium Chloride 10 ml 12/25/18 17:00 12/26/18 09:08 Normal Saline Flush 0.9% IVP Not Given 0100,0900,1700 [facility] Tolterodine Tartrate 4 mg 12/25/18 11:00 12/26/18 09:07 Detrol La PO 4 mg DAILY DAVID Administration - Physical Exam Wound/Incisions: positive: Healing well, Drainage (Noted) General Appearance: positive: No acute distress, Alert Eyes Bilateral: positive: Normal inspection, PERRL, EOMI ENT: positive: ENT inspection nml Neck: positive: Nml inspection, Thyroid nml, No JVD Respiratory: positive: Chest non-tender, No respiratory distress Cardiovascular: positive: Regular rate & rhythm Abdomen: positive: Other (soft, appropriately tender, active bowel sounds) Skin: positive: Color nml Neurologic/Psychiatric: positive: Oriented x3, CN's nml (2-12) ABX Reporting Has patient been on IV antibiotics over the past 48 hours?: Yes Impression/Plan - Problem List Problem List: 1. Anemia with profound thrombocytopenia - will transfuse blood and platelets 2. Drainage - leave drain in place. No clot in the drain 3. Recheck H/H in the AM. Elevated bili likely due to re-absorption of bile but will fractionate with morning labs 4. Change status to in patient.
[2018-12-26] MEDS: ATORVASTATIN 40 MG TABLET PO SCH (20:22)
[2018-12-26] MEDS: CARBIDOPA/LEVODOPA 25 MG/100 MG TABLET PO SCH (20:22)
[2018-12-27] MEDS: PIPERACILLIN/TAZOBACTAM 3.375 GM in SODIUM CHLORIDE 0.9% MINIBAG 100 ML IV SCH ×5 (00:17→23:08)
[2018-12-27] MEDS: SODIUM CHLORIDE FLUSH 0.9% 10 ML SYRINGE IVP SCH ×4 (01:22→23:59)
[2018-12-27] MEDS: ACETAMINOPHEN 325 MG TABLET PO PRN ×4 (04:39→23:58)
[2018-12-27 05:47] LABS: EOSINOPHILS % (AUTO) 3.1 %; HGB - HEMOGLOBIN 7.7 g/dL (14.0-18.0); LYMPHOCYTES % (AUTO) 44.1 %; MEAN CORPUSCULAR HEMOGLOBIN 35.3 pg (27.0-31.0); MEAN CORPUSCULAR HGB CONC 33.2 g/dL (32.0-36.0); MEAN CORPUSCULAR VOLUME 106.4 fL (80.0-94.0); MEAN PLATELET VOLUME 10.4 fL (7.4-11.4); MONOCYTES % (AUTO) 3.1 %; NEUTROPHILS % (AUTO) 49.1 %; PLT - PLATELET COUNT 65 10^3/uL (130-450); RED BLOOD COUNT 2.18 10^6/uL (4.70-6.10); RED CELL DISTRIBUTION WIDTH 21.7 % (12.0-15.0)
[2018-12-27] MEDS: PANTOPRAZOLE 40 MG TABLET PO SCH (05:47)
[2018-12-27 05:55] LABS: WHITE BLOOD COUNT 1.6 x10^3/uL (4.8-10.8)
[2018-12-27 05:56] LABS: ABNORMAL LYMPHS % (MANUAL) 0 %
[2018-12-27 06:02] LABS: BILIRUBIN,DIRECT 0.3 mg/dL (0.1-0.5); BILIRUBIN,INDIRECT 1.7 mg/dL; CREATININE 0.8 mg/dL (0.6-1.2)
[2018-12-27 06:25] LABS: BAND NEUTROPHILS % (MANUAL) 1 %; LYMPHOCYTES # (MANUAL) 0.7 10^3/uL (1.5-3.5); LYMPHOCYTES % (MANUAL) 41 %
[2018-12-27 06:26] LABS: PLATELET ESTIMATE, MANUAL DECREASED (<130,000) (NORMAL); PLATELET MORPHOLOGY NORMAL APPEARANCE (NORMAL); RBC MORPHOLOGY (MULTIPLE) NORMAL APPEARANCE (NORMAL)
[2018-12-27 06:27] LABS: DIFFERENTIAL COMMENT MANUAL DIFFERENTIAL
[2018-12-27] MEDS ORDERED: HYDROmorphone 0.5 MG/0.5 ML SYRINGE IVP PRN (08:02)
[2018-12-27] MEDS: POLYETHYLENE GLYCOL 3350 17 GM PACKET PO SCH (08:29)
[2018-12-27] MEDS: TOLTERODINE LA 2 MG CAPSULE PO SCH (08:30)
[2018-12-27] MEDS: FINASTERIDE 5 MG TABLET PO SCH (08:31)
[2018-12-27] MEDS: ATORVASTATIN 40 MG TABLET PO SCH (08:31)
[2018-12-27] MEDS: buPROPion XL 150 MG TABLET PO SCH ×2 (08:32→21:09)
[2018-12-27] MEDS: ASPIRIN EC 81 MG TABLET PO SCH (08:32)
[2018-12-27] MEDS ORDERED: FUROSEMIDE 20 MG/2 ML VIAL IVP SCH (09:13)
[2018-12-27] MEDS: LACTATED RINGERS 1,000 ML IV SCH (09:28)
--- NOTE | 2018-12-27 14:18 | PROVIDER PROGRESS NOTE ---
Subjective - General Admit Date: 12/26/18 Procedure Date: 12/25/18 Post Op Days: 2 Procedure Performed: Lap marshall - Review of Systems Wound/Incisions: positive: Healing well, Drainage (Noted) Drain Type: 19 F Abhijit with sanguinous drainage Approximate mls Output: 450 General: positive: Fatigue HEENT: positive: No symptoms Pulmonary: positive: No symptoms Cardiovascular: positive: No symptoms Gastrointestinal: positive: Other (Abdominal pain at incision sites and when taking a deep breath) Genitourinary: positive: Other (Unable to urinate) Musculoskeletal: positive: Shoulder pain Objective - Patient Data Vital Signs: Vital Signs x48h Temp Pulse Resp BP Pulse Ox 12/27/18 12:52 36.5 C 64 14 99/51 L 95 12/27/18 09:00 36.7 C 51 L 16 98/52 L 93 Weight: Weight 12/25/18 12/26/18 12/27/18 23:59 23:59 23:59 Weight (kg) 90.718 kg Intake & Output: Intake and Output Totals x24h 12/25/18 12/26/18 12/27/18 23:59 23:59 23:59 Intake Total 1080 4677.500 1469.167 Output Total 155 1357 620 Balance 925 3320.500 849.167 - Lab Results Lab Results: 12/27/18 05:22 12/27/18 05:22 Other Lab Results: Lab Results x24hrs 12/27/18 12/27/18 12/26/18 Range/Units 05:22 05:22 09:23 WBC 1.6 L* (4.8-10.8) x10^3/uL RBC 2.18 L (4.70-6.10) 10^6/uL Hgb 7.7 L (14.0-18.0) g/dL Hct 23.2 L (42.0-52.0) % MCV 106.4 H (80.0-94.0) fL MCH 35.3 H (27.0-31.0) pg MCHC 33.2 (32.0-36.0) g/dL RDW 21.7 H (12.0-15.0) % Plt Count 65 L (130-450) 10^3/uL MPV 10.4 (7.4-11.4) fL Neut # (Auto) Not Reportable Lymph # (Auto) Not Reportable [place] # (Auto) Not Reportable Eos # (Auto) Not Reportable Baso # (Auto) Not Reportable Absolute Nucleated RBC Not Reportable Total Counted 100 Band Neuts % (Manual) 1 (0 - 10) % Abnorm Lymph % (Manual) 0 % Nucleated RBC % Not Reportable Neutrophils # (Manual) 0.9 L (1.5-6.6) 10^3/uL Lymphocytes # (Manual) 0.7 L (1.5-3.5) 10^3/uL Monocytes # (Manual) 0.0 (0.0-1.0) 10^3/uL Eosinophils # (Manual) 0.0 (0-0.7) 10^3/uL Basophils # (Manual) 0.0 (0-0.1) 10^3/uL Differential Comment MANUAL DIFFERENTIAL WBC Morphology NORMAL APPEARANCE (NORMAL) Platelet Estimate DECREASED (<130,000) (NORMAL) Platelet Morphology NORMAL APPEARANCE (NORMAL) RBC Morph Micro Appear NORMAL APPEARANCE (NORMAL) Sodium 135 (135-145) mmol/L Potassium 3.9 (3.5-5.0) mmol/L Chloride 102 (101-111) mmol/L Carbon Dioxide 28 (21-32) mmol/L Anion Gap 5.0 L (6-13) BUN 18 (6-20) mg/dL Creatinine 0.8 (0.6-1.2) mg/dL Estimated GFR (MDRD) 93 (>89) Glucose 104 H (70-100) mg/dL Calcium 8.0 L (8.5-10.3) mg/dL Total Bilirubin 2.0 H (0.2-1.0) mg/dL Direct Bilirubin 0.3 (0.1-0.5) mg/dL Indirect Bilirubin 1.7 mg/dL Blood Type O POSITIVE Antibody Screen NEGATIVE Crossmatch IS Only See Detail - Current Medications Current Medications: Current Medications Generic Name Dose Route Start Last Admin Trade Name Freq PRN Reason Stop Dose Admin Acetaminophen 650 mg 12/25/18 09:45 12/27/18 13:40 Tylenol PO 650 mg Q4HR PRN Administration PAIN Aspirin 81 mg 12/26/18 09:00 12/27/18 08:32 Ecotrin PO 81 mg DAILY DAVID Administration Atorvastatin Calcium 40 mg 12/26/18 20:00 12/27/18 08:31 Lipitor PO 40 mg DAILY DAVID Administration Bupropion HCl 150 mg 12/25/18 21:00 12/27/18 08:32 Wellbutrin Xl PO 150 mg BID DAVID Administration Carbidopa/Levodopa 1 tab 12/25/18 21:00 12/26/18 20:22 Sinemet 25 Mg/100 Mg PO 1 tab QPM DAVID Administration Finasteride 5 mg 12/26/18 09:00 12/27/18 08:31 Proscar PO 5 mg DAILY DAVID Administration Piperacillin Sod/Tazobactam 100 mls @ 200 mls/hr 12/26/18 17:00 12/27/18 12:35 Sod 3.375 gm/ Sodium Chloride IV Infused Q6H DAVID Infusion Oxycodone HCl 5 mg 12/25/18 09:45 12/26/18 20:22 Roxicodone PO 5 mg Q3HR PRN Administration PAIN Pantoprazole Sodium 40 mg 12/25/18 10:00 12/27/18 05:47 Protonix PO 40 mg QDAC DAVID Administration Polyethylene Glycol 17 gm 12/27/18 09:00 12/27/18 08:29 Miralax PO 17 gm DAILY DAVID Administration Sodium Chloride 10 ml 12/25/18 17:00 12/27/18 08:32 Normal Saline Flush 0.9% IVP Not Given 0100,0900,1700 [facility] Tolterodine Tartrate 4 mg 12/25/18 11:00 12/27/18 08:30 Detrol La PO 4 mg DAILY DAVID Administration - Physical Exam Wound/Incisions: positive: Healing well, No drainage, Other (scant bloody drainage at incision sites. No edema or erythema) Eyes Bilateral: positive: Normal inspection ENT: positive: ENT inspection nml Neck: positive: Nml inspection Respiratory: positive: Chest non-tender, No respiratory distress, Breath sounds nml. negative: Wheezes Cardiovascular: positive: Regular rate & rhythm, No murmur Abdomen: positive: Other (Soft and appropriately tender, active bowel sounds. ABDI with sanguinous drainage.) Skin: positive: Color nml, No rash Neurologic/Psychiatric: positive: Oriented x3 Comments/Other: Eating well and passing flatus. Reports he is feeling better each day. Doesn't like Oxycodone because he is worried about constipation. No fever. Pain primarily with hiccups now. ABX Reporting Has patient been on IV antibiotics over the past 48 hours?: Yes Impression/Plan - Problem List Problem List: 1. Anemia - at least partially dilutional. Gave 20 mg of lasix this AM and stopped IV fluid. Will recheck in the AM 2. Grossly infected gall bladder. Continue antibiotics another 24 hours. 3. Thrombocytopenia - essentially stable. Very little change with platelet transfusion 4. Nutrition - eating well 5. Simpson catheter in place. Will remove in the AM. Hopefully he will be able to void at that time 6. Pain - Will stop oxycodone and try Tramadol for pain control. 7. Repeat labs in the AM to check H/H and electrolytes
[2018-12-27] MEDS: traMADol 50 MG TABLET PO PRN ×2 (14:57→21:09)
[2018-12-27] MEDS: CARBIDOPA/LEVODOPA 25 MG/100 MG TABLET PO SCH (21:09)
[2018-12-28] MEDS: PIPERACILLIN/TAZOBACTAM 3.375 GM in SODIUM CHLORIDE 0.9% MINIBAG 100 ML IV SCH (04:55)
[2018-12-28] MEDS: traMADol 50 MG TABLET PO PRN ×2 (04:59→08:55)
[2018-12-28 05:28] LABS: BASOPHILS % (AUTO) 0.7 %; EOSINOPHILS # (AUTO) 0.1 10^3/uL (0.0-0.7); EOSINOPHILS % (AUTO) 3.9 %; LYMPHOCYTES # (AUTO) 0.7 10^3/uL (1.5-3.5); LYMPHOCYTES % (AUTO) 45.8 %; MEAN CORPUSCULAR HEMOGLOBIN 35.7 pg (27.0-31.0); MEAN CORPUSCULAR HGB CONC 33.9 g/dL (32.0-36.0); MEAN CORPUSCULAR VOLUME 105.4 fL (80.0-94.0); MEAN PLATELET VOLUME 9.8 fL (7.4-11.4); MONOCYTES # (AUTO) 0.1 10^3/uL (0.0-1.0); MONOCYTES % (AUTO) 3.9 %; NEUTROPHILS # (AUTO) 0.7 10^3/uL (1.5-6.6); NEUTROPHILS % (AUTO) 45.7 %; PLT - PLATELET COUNT 62 10^3/uL (130-450); RED BLOOD COUNT 2.24 10^6/uL (4.70-6.10); RED CELL DISTRIBUTION WIDTH 19.9 % (12.0-15.0)
[2018-12-28 05:33] LABS: CALCIUM 8.4 mg/dL (8.5-10.3); CREATININE 0.7 mg/dL (0.6-1.2)
[2018-12-28 05:34] LABS: WHITE BLOOD COUNT 1.5 x10^3/uL (4.8-10.8)
[2018-12-28] MEDS: PANTOPRAZOLE 40 MG TABLET PO SCH (05:48)
[2018-12-28 05:49] LABS: DIFFERENTIAL COMMENT MANUAL=AUTO DIFF; PLATELET ESTIMATE, MANUAL DECREASED (<130,000) (NORMAL); RBC MORPHOLOGY (MULTIPLE) NORMAL APPEARANCE (NORMAL)
[2018-12-28] MEDS: POLYETHYLENE GLYCOL 3350 17 GM PACKET PO SCH (08:46)
[2018-12-28] MEDS: FINASTERIDE 5 MG TABLET PO SCH (08:46)
[2018-12-28] MEDS: ASPIRIN EC 81 MG TABLET PO SCH (08:46)
[2018-12-28] MEDS: TOLTERODINE LA 2 MG CAPSULE PO SCH (08:46)
[2018-12-28] MEDS: ATORVASTATIN 40 MG TABLET PO SCH (08:47)
[2018-12-28] MEDS: buPROPion XL 150 MG TABLET PO SCH (08:47)
[2018-12-28] MEDS: SODIUM CHLORIDE FLUSH 0.9% 10 ML SYRINGE IVP SCH (08:47)
[2018-12-28] MEDS: ACETAMINOPHEN 325 MG TABLET PO PRN (08:55)
--- NOTE | 2018-12-28 12:35 | Discharge Plan ---
Discharge Plan Problem Reviewed?: Yes Disposition: Home, Self Care Condition: Good Prescriptions: traMADol [Ultram] 50 mg PO Q4-6H PRN #30 tablet PRN Reason: Pain Diet: Regular Activity Restrictions: Activity as Tolerated Shower Restrictions: No Driving Restrictions: Yes Plan of Treatment: Patient will be seen in the [facility] on Wednesday for lab draw and possible transfusion Notify my office when he will be there so that his drain can be removed No additional antibiotics required Tramadol as needed for pain control Assessment: Acute cholecystitis - improved following cholecystectomy MDS - anemic following surgery. Leave drain in place. No Smoking: If you smoke, Please STOP! Call for help. Follow-up with: Tommy Berger MD [Primary Care Provider] -
--- NOTE | 2018-12-28 12:36 | DISCHARGE SUMMARY ---
"Discharge Summary Admit Date: 12/25/18 Discharge Date: 12/28/18 Discharging Provider: Sugey Code Status: Attempt Resuscitation Condition at Discharge: Good Discharge Disposition: 01 Home, Self Care - DIAGNOSES Admission Diagnoses: Acute cholecystitis Myelodylsplastic syndrome Discharge Diagnoses with Status of Each Condition: 1. Acute cholecystitis - improved 2. MDS - stable - HPI History of Present Illness: Very pleasant 78-year-old gentleman who presented to the emergency room with severe right upper quadrant pain. He was diagnosed with a calculus cholecystitis in May of this year at our facility. He has had 2 ultrasounds in the past showing sludge and pericholecystic fluid. He was last seen here on the and was given antibiotics and oxycodone for pain. He reports he was taking the medication because he had severe pain but when the pain outstripped the medications ability to help him, he decided to present to the emergency room. He reports that he is quite miserable. - CONSULTS | PROCEDURES Consultations: None Procedures: Laparoscopic cholecystectomy - HOSPITAL COURSE Hospital Course: The patient was admitted to the hospital and taken to the operating room where he underwent an uneventful laparoscopic cholecystectomy. Due to the patient's thrombocytopenia, a drain was placed for the purpose of monitoring. The patient experience bloody drainage following the procedure and was noted. The following day he was noted to be anemic and received 2 Units of PRBCs and a platelet pheresis pack. He has been stable since that time. He is discharged to his home in the care of his . He will be going to his home in [place] on Wednesday. He is seen by the [facility] there. - ALLERGIES Allergies/Adverse Reactions: Allergies Allergy/AdvReac Type Severity Reaction Status Date / Time No Known Drug Allergies Allergy Verified 12/24/18 23:12 - MEDICATIONS Home Medications: Ambulatory Orders Medication Instructions Recorded Confirmed Aspirin [Aspir 81] 81 mg PO DAILY 09/11/13 12/25/18 Atorvastatin Calcium 40 mg PO QPM 09/11/13 12/25/18 Carbidopa/Levodopa 25/100 [Sinemet 1 tab PO QPM 11/11/13 12/25/18 25 mg/100 mg] Finasteride 5 mg PO DAILY 11/11/13 12/25/18 Tolterodine Tartrate [Detrol] 4 mg PO DAILY 05/26/18 12/25/18 traMADol [Ultram] 50 mg PO Q4-6H PRN #30 tablet 12/28/18 - PHYSICAL EXAM AT DISCHARGE General Appearance: positive: No acute distress, Alert Eyes Bilateral: positive: Normal inspection, PERRL, EOMI ENT: positive: ENT inspection nml, Pharynx nml Neck: positive: Nml inspection, Thyroid nml, No JVD, Trachea midline, Thy romegaly Respiratory: positive: Chest non-tender, No respiratory distress, Breath sounds nml Cardiovascular: positive: Regular rate & rhythm, No murmur, No gallop Peripheral Pulses: positive: 0 Abdomen: positive: Other (Appropriately tender to palpation. Active bowel sound. Wounds are clean and dry with minimal sanguinous drainage) Back: positive: Nml inspection Skin: positive: Color nml, No rash Extremities: positive: Non-tender Neurologic/Psychiatric: positive: Oriented x3, CN's nml (2-12) - LABS Result Diagrams: 12/28/18 05:20 12/28/18 05:20 - FOLLOW UP Follow Up: Followup with [facility] on Wednesday for possible transfusion - TIME SPENT Time Spent in Discharge (Minutes): 20"
[2018-12-28 12:54] VITALS: BP 108/75
== END 2018-12-28 14:00 | disposition home or self-care (01) | DRG 948 ==
LOC: ED 23:00 → SDS 12-25 08:00 → OBS 12-25 09:41 → MS2 12-25 13:26 → OBSVTOIN 12-26 16:18
PROVIDERS: ADMIT Surgery; ATTEND Surgery
PROC: 0FT44ZZ Resection of Gallbladder, Percutaneous Endoscopic Approach (ICD-10-PCS; principal; 2018-12-25 08:40)
DX: G89.18 Other acute postprocedural pain (principal); K80.12 Calculus of gallbladder with acute and chronic cholecystitis without obstruction; K82.1 Hydrops of gallbladder; D46.9 Myelodysplastic syndrome, unspecified; D69.6 Thrombocytopenia, unspecified; I48.91 Unspecified atrial fibrillation; E78.00 Pure hypercholesterolemia, unspecified; G47.30 Sleep apnea, unspecified; K21.9 Gastro-esophageal reflux disease without esophagitis; F32.9 Major depressive disorder, single episode, unspecified; I25.10 Atherosclerotic heart disease of native coronary artery without angina pectoris; G25.81 Restless legs syndrome; Z79.82 Long term (current) use of aspirin; Z86.19 Personal history of other infectious and parasitic diseases; Z95.1 Presence of aortocoronary bypass graft; Z85.828 Personal history of other malignant neoplasm of skin; Z87.891 Personal history of nicotine dependence
CPT/HCPCS: 36415; 36430; 47562; 80048; 80053; 82150; 82247; 82248; 83690; 85014; 85018; 85025; 85610; 86850; 86900; 86901; 86920; 88304; 99285; A9270; G0378; J1170; J3010; J7120; P9016; P9035; 81001; 81003; 87086

== ENCOUNTER 2019-03-15 14:22 | Emergency (ER) | payer MEDICARE, OTHER ==
[2019-03-15] MEDS ORDERED: SODIUM CHLORIDE 0.9% 1,000 ML IV ONE ×2 (15:15)
[2019-03-15 15:43] LABS: EOSINOPHILS % (AUTO) 2.6 %; LYMPHOCYTES % (AUTO) 61.2 %; MEAN CORPUSCULAR HEMOGLOBIN 38.3 pg (27.0-31.0); MEAN CORPUSCULAR HGB CONC 35.4 g/dL (32.0-36.0); MEAN CORPUSCULAR VOLUME 108.1 fL (80.0-94.0); MEAN PLATELET VOLUME 12.3 fL (7.4-11.4); MONOCYTES % (AUTO) 4.3 %; NEUTROPHILS % (AUTO) 31.9 %; RED BLOOD COUNT 2.35 10^6/uL (4.70-6.10)
[2019-03-15 15:51] LABS: PLT - PLATELET COUNT 33 10^3/uL (130-450); WHITE BLOOD COUNT 1.2 x10^3/uL (4.8-10.8)
[2019-03-15 15:52] LABS: ABNORMAL LYMPHS % (MANUAL) 0 %; BAND NEUTROPHILS % (MANUAL) 0 %
[2019-03-15 15:54] LABS: ALBUMIN 3.8 g/dL (3.2-5.5); ALBUMIN/GLOBULIN RATIO 1.3 (1.0-2.2); BILIRUBIN,TOTAL 1.7 mg/dL (0.2-1.0); CALCIUM 8.9 mg/dL (8.5-10.3); CREATININE 0.8 mg/dL (0.6-1.2); TOTAL PROTEIN 6.8 g/dL (6.7-8.2)
[2019-03-15 16:10] LABS: BILIRUBIN,URINE NEGATIVE (NEGATIVE); GLUCOSE, URINE (UA) NEGATIVE (NEGATIVE); KETONES,URINE (UA) NEGATIVE (NEGATIVE); LEUKOCYTE ESTERASE, URINE NEGATIVE (NEGATIVE); NITRITE,URINE NEGATIVE (NEGATIVE); OCCULT BLOOD,URINE NEGATIVE (NEGATIVE); PH,URINE 8.5 PH (5.0-7.5); PROTEIN,URINE NEGATIVE (NEGATIVE); UROBILINOGEN,URINE 1 (NORMAL) E.U./dL (NORMAL)
[2019-03-15 16:15] LABS: DIFFERENTIAL COMMENT MANUAL DIFFERENTIAL; LYMPHOCYTES # (MANUAL) 0.8 10^3/uL (1.5-3.5); LYMPHOCYTES % (MANUAL) 70 %; PLATELET ESTIMATE, MANUAL DECREASED (<130,000) (NORMAL); PLATELET MORPHOLOGY NORMAL APPEARANCE (NORMAL)
[2019-03-15 16:16] LABS: CLARITY,URINE CLEAR (CLEAR)
--- NOTE | 2019-03-15 16:49 | ED Physician Documentation ---
History of Present Illness - Stated complaint Stated Complaint: CONFUSION/DIZZY/WEAKNESS - Chief complaint Chief Complaint: Neuro - History obtained from History obtained from: Patient, Family - History of Present Illness Timing: Today Pain level max: 0 Pain level now: 0 Improved by: Nothing Worsened by: Nothing - Additonal information Additional information: Patient is a 78-year-old male who presents to the emergency department with confusion today. He has myelodysplastic syndrome, pancytopenia and is currently undergoing chemotherapy. He is on Levaquin for neutropenia. The Levaquin was started yesterday. states that he had dizziness last time he took Levaquin, but not confusion. No fevers. No chills. No vomiting. No diarrhea. No urinary symptoms. No trauma. Review of Systems Ten Systems: 10 systems reviewed and negative Constitutional: denies: Fever, Chills Ears: denies: Ear pain Nose: denies: Rhinorrhea / runny nose, Congestion Respiratory: denies: Cough GI: denies: Vomiting, Diarrhea : denies: Dysuria Skin: denies: Rash Musculoskeletal: denies: Neck pain, Back pain Neurologic: reports: Confused, Altered mental status, Headache (states mild HUBBARD). denies: Focal weakness, Numbness, Syncope, Seizure, Head injury PD PAST MEDICAL HISTORY - Past Medical History Cardiovascular: High cholesterol, Coronary artery disease, Atrial fibrillation Respiratory: None Neuro: None Endocrine/Autoimmune: None GI: GERD, Hepatitis : None HEENT: None Psych: Depression Musculoskeletal: None Derm: None - Past Surgical History Past Surgical History: Yes Ortho: Other Cardiovascular: CABG Derm: Skin cancer surgery - Present Medications Home Medications: Ambulatory Orders Medication Instructions Recorded Confirmed Aspirin [Aspir 81] 81 mg PO DAILY 09/11/13 03/13/19 Atorvastatin Calcium 40 mg PO QPM 09/11/13 03/13/19 Carbidopa/Levodopa 25/100 [Sinemet 1 tab PO QPM 11/11/13 03/13/19 25 mg/100 mg] Finasteride 5 mg PO DAILY 11/11/13 03/13/19 Tolterodine Tartrate [Detrol] 4 mg PO DAILY 05/26/18 03/13/19 Acyclovir [Zovirax] 400 mg PO BID 02/28/19 03/13/19 C,E,Zinc,Copper 11/Nfavj7k/Lut 1 cap PO DAILY 02/28/19 03/13/19 [Ocuvite Adult 50 Plus Softgel] Cholecalciferol (Vitamin D3) 2,000 mg PO DAILY 02/28/19 03/13/19 [Vitamin D3] Esomeprazole Magnesium [Nexium] 40 mg PO DAILY 02/28/19 03/13/19 Multivitamin/Iron/Folic Acid 1 tab PO DAILY 02/28/19 03/13/19 [Centrum Adults Tablet] Orange-3/Dha/Epa/Fish Oil [Fish Oil 1,000 mg PO DAILY 02/28/19 03/13/19 1,000 mg Softgel] Ubidecarenone [Co Q-10] 300 mg PO DAILY 02/28/19 03/13/19 buPROPion [Wellbutrin Sr] 150 mg PO DAILY 02/28/19 03/13/19 Ondansetron HCl [Zofran] 8 mg PO Q8HR PRN 03/06/19 03/13/19 Levofloxacin [Levaquin] 500 mg PO DAILY 03/13/19 03/13/19 - Allergies Allergies/Adverse Reactions: Allergies Allergy/AdvReac Type Severity Reaction Status Date / Time No Known Drug Allergies Allergy Verified 03/15/19 14:37 - Social History Does the pt smoke?: No Smoking Status: Never smoker Does the pt drink ETOH?: Yes Does the pt have substance abuse?: No - Immunizations Immunizations are current?: Yes Immunizations: TDAP >10years/unknown - POLST Patient has POLST: No PD ED PE NORMAL - Vitals Vital signs reviewed: Yes - General General: No acute distress, Well developed/nourished, Other (Alert, oriented to person and place. Confused to time. Also slow to answer questions and often repetitive) - HEENT HEENT: Atraumatic, PERRL, EOMI, Ears normal, Moist mucous membranes - Neck Neck: Supple, no meningeal sign - Cardiac Cardiac: RRR, Strong equal pulses - Respiratory Respiratory: No respiratory distress, Clear bilaterally - Abdomen Abdomen: Soft, Non tender, Non distended - Back Back: No spinal TTP - Derm Derm: Warm and dry - Extremities Extremities: No edema - Neuro Neuro: campaign management senior manager 2-12 intact, No motor deficit, No sensory deficit, Normal speech Eye Opening: Spontaneous Motor: Obeys Commands Verbal: Confused GCS Score: 14 - Psych Psych: Normal mood, Normal affect Results - Vitals Vitals: Vital Signs - 24 hr 03/15/19 03/15/19 03/15/19 14:37 14:47 16:47 Temperature 37.1 C 37.1 C 36.4 C L Heart Rate 66 66 59 L Respiratory 18 18 14 Rate Blood Pressure 101/58 L 101/58 L 164/58 H O2 Saturation 100 100 96 Oxygen O2 Source Room air - Labs Labs: Laboratory Tests 03/15/19 03/15/19 03/15/19 15:36 15:36 15:54 WBC 1.2 L* RBC 2.35 L Hgb 9.0 L Hct 25.4 L MCV 108.1 H MCH 38.3 H MCHC 35.4 RDW 15.0 Plt Count 33 L* MPV 12.3 H Neut # (Auto) Not Reportable Lymph # (Auto) Not Reportable [place] # (Auto) Not Reportable Eos # (Auto) Not Reportable Baso # (Auto) Not Reportable Absolute Nucleated RBC Not Reportable Total Counted 100 Band Neuts % (Manual) 0 Abnorm Lymph % (Manual) 0 Nucleated RBC % Not Reportable Neutrophils # (Manual) 0.3 L* Lymphocytes # (Manual) 0.8 L Monocytes # (Manual) 0.0 Eosinophils # (Manual) 0.0 Basophils # (Manual) 0.0 Differential Comment MANUAL DIFFERENTIAL Manual Slide Review Indicated WBC Morphology NORMAL APPEARANCE Platelet Estimate DECREASED (<130,000) Platelet Morphology NORMAL APPEARANCE RBC Morph Micro Appear 1+ OVALOCYTES Sodium 135 Potassium 4.0 Chloride 101 Carbon Dioxide 24 Anion Gap 10.0 BUN 13 Creatinine 0.8 Estimated GFR (MDRD) 93 Glucose 113 H Calcium 8.9 Total Bilirubin 1.7 H AST 18 ALT 19 Alkaline Phosphatase 53 Total Protein 6.8 Albumin 3.8 Globulin 3.0 Albumin/Globulin Ratio 1.3 Lipase 24 Urine Color YELLOW Urine Clarity CLEAR Urine pH 8.5 H Ur Specific [place] 1.010 Urine Protein NEGATIVE Urine Glucose (UA) NEGATIVE Urine Ketones NEGATIVE Urine Occult Blood NEGATIVE Urine Nitrite NEGATIVE Urine Bilirubin NEGATIVE Urine Urobilinogen 1 (NORMAL) Ur Leukocyte Esterase NEGATIVE Ur Microscopic Review NOT INDICATED Urine Culture Comments NOT INDICATED - Rads (name of study) head CT Radiology: Prelim report reviewed, EMP read contemporaneously, See rad report (no acute abnormality.) PD MEDICAL DECISION MAKING - ED course Complexity details: reviewed results, re-evaluated patient, considered differential, d/w patient, d/w clinical services consultant ED course: 78-year-old male presents to the emergency department with dizziness and altered mental status after starting Levaquin yesterday. Likely side effect. No significant lab abnormalities or head CT abnormalities. I discussed the case with his oncologist, we will stop the Levaquin and have him follow-up with his oncologist next week. No evidence of infection at this time. Patient counseled regarding signs and symptoms for which I believe and urgent re-evaluation would be necessary. Patient with good understanding of and agreement to plan and is comfortable going home at this time This document was made in part using voice recognition software. While efforts are made to proofread this document, sound alike and grammatical errors may occur. Departure - Departure Disposition: 01 Home, Self Care Clinical Impression: Altered mental status Qualifiers: Altered mental status type: transient alteration of awareness Qualified Code(s): R40.4 - Transient alteration of awareness Condition: Good Instructions: ED Altered Loc Follow-Up: Tommy Berger MD [Primary Care Provider] - Within 1 week Iain Dc MD [Physician No Access] - Iain Dc MD [Provider Admit Priv/Credential] - Within 1 week Comments: I spoke with Dr. Dc today. We will stop your Levaquin at this time. He will discuss starting a different antibiotic with you next week. Return if you worsen. Discharge Date/Time: 03/15/19 17:33
--- NOTE | 2019-03-15 17:03 | CT Report ---
Reason: altered mental status, thrombocytopenia Procedure Date: 03/15/2019 Accession Number: [id number] / [id number] Procedure: CT - HEAD WO CPT Code: Final Report FULL RESULT: EXAM: CT HEAD EXAM DATE: 03/15/2019 04:44 PM. CLINICAL HISTORY: Altered mental status, thrombocytopenia. COMPARISON: None. TECHNIQUE: Multiaxial CT images were obtained from the foramen magnum to the vertex. Reformats: Sagittal and coronal. IV contrast: None. In accordance with CT protocol optimization, one or more of the following dose reduction techniques were utilized for this exam: automated exposure control, adjustment of mA and/or KV based on patient size, or use of iterative reconstructive technique. FINDINGS: Parenchyma: No intraparenchymal hemorrhage. No evidence of mass, midline shift, or CT findings of infarction. Bedolla-white differentiation is distinct. Mild to moderate diffuse parenchymal volume loss. Extensive periventricular and deep white matter hypoattenuation, most consistent with chronic microangiopathic white matter changes. Extraaxial Spaces: No subdural or epidural collections identified. Ventricles: No hydrocephalus. Sinuses and Orbits: Imaged paranasal sinuses, orbits, and mastoids show no significant abnormality. Bones: No evidence of fracture or calvarial defect. Other: None. IMPRESSION: 1. No acute intracranial findings. 2. Mild to moderate diffuse parenchymal volume loss. 3. Extensive chronic microangiopathic white matter changes. RADIA
[2019-03-15 17:33] VITALS: BP 164/58
== END 2019-03-15 17:33 | disposition home or self-care (01) ==
LOC: ED 14:22
DX: R40.4 Transient alteration of awareness (principal); R51 Headache; R42 Dizziness and giddiness; D46.9 Myelodysplastic syndrome, unspecified; D61.818 Other pancytopenia; Z79.82 Long term (current) use of aspirin
CPT/HCPCS: 36415; 70450; 80053; 81001; 81003; 83690; 85025; 87086; 96360; 99285

== ENCOUNTER 2019-05-01 09:18 | Outpatient (CLI) | payer MEDICARE, OTHER ==
--- NOTE | 2019-05-01 10:17 | XRAY Report ---
Reason: BACK RT FLANK PAIN, RT HIP PAIN Procedure Date: 05/01/2019 Accession Number: [id number] / [id number] Procedure: XR - Lumbar Spine 2 View CPT Code: Final Report FULL RESULT: EXAM: LUMBOSACRAL SPINE RADIOGRAPHY EXAM DATE: 05/01/2019 09:41 AM. CLINICAL HISTORY: BACK PAIN, RT FLANK PAIN, RT HIP PAIN. COMPARISONS: LUMBAR SPINE W/O 10/22/2018 7:59 AM. TECHNIQUE: 2 views. FINDINGS: Alignment: There is 16 degrees dextroscoliosis measured between T11-T12 and L3-L4. Bones: No evidence of fracture. Disks: There is disk height loss and endplate degenerative changes at the L2-L3, L3-L4, and L4-L5 levels. Facets: There is mild facet hypertrophy at L4-L5 and L5-S1. Sacroiliac Joints: Unremarkable. Soft Tissues: Surgical clips noted in right upper abdomen. There are prominent vascular calcifications. IMPRESSION: 1. No radiographic evidence of fracture or other acute abnormality. 2. 16 degrees dextroscoliosis. 3. Moderate diskogenic degenerative changes at L2-L3, L3-L4, and L4-L5. 4. Mild facet hypertrophy at L4-L5 and L5-S1. RADIA
--- NOTE | 2019-05-01 11:26 | XRAY Report ---
Reason: BACK RT FLANK PAIN, RT HIP PAIN Procedure Date: 05/01/2019 Accession Number: [id number] / [id number] Procedure: XR - Hip w/Pelvis 2-3V RT CPT Code: Final Report FULL RESULT: EXAM: RIGHT HIP RADIOGRAPHY EXAM DATE: 05/01/2019 09:41 AM. CLINICAL HISTORY: Back, right flank pain, right hip pain. COMPARISON: ABDOMEN 1 VIEW 01/19/2014 3:52 PM. TECHNIQUE: 2 views. FINDINGS: Stable mild narrowing of the hip joint spaces. Osteophytic spurring of the lateral margins of the right acetabulum. No fracture or subluxation. No femoral head collapse. The imaged portion of the sacroiliac joints appear within normal limits. IMPRESSION: Mild degenerative changes at the right hip RADIA
== END 2019-05-01 09:19 | disposition home or self-care (01) ==
LOC: DI 09:18
PROVIDERS: ATTEND Family Medicine
DX: M47.816 Spondylosis without myelopathy or radiculopathy, lumbar region (principal); M47.817 Spondylosis without myelopathy or radiculopathy, lumbosacral region; M51.36 Other intervertebral disc degeneration, lumbar region; M41.9 Scoliosis, unspecified; M16.11 Unilateral primary osteoarthritis, right hip
CPT/HCPCS: 72100

== ENCOUNTER 2019-06-19 13:44 | Emergency (ER) | payer MEDICARE, OTHER ==
--- NOTE | 2019-06-19 15:09 | ED Physician Documentation ---
History of Present Illness - Stated complaint Stated Complaint: GLF/HEAD LAC/BACK PX - Chief complaint Chief Complaint: Trauma Ch/Bk - History obtained from History obtained from: Patient - History of Present Illness Timing: How many days ago (3) Pain level max: 6 Pain level now: 3 - Additonal information Additional information: 78-year-old male with a history of myelodysplastic syndrome states that he was outside 3 days ago when he fell backwards striking the back of his head and landing on his right ribs. Pain has been controlled with Tylenol, but is still having pain so that he would come in for evaluation. Had an abrasion to the occiput. A bandage was placed over this. No active bleeding. His tetanus is up-to-date. Pain is worse with movement and better with rest. No neck or back pain. No focal numbness or weakness. Review of Systems Ten Systems: 10 systems reviewed and negative Constitutional: denies: Fever, Chills Ears: denies: Ear pain Nose: denies: Rhinorrhea / runny nose, Congestion GI: denies: Vomiting, Diarrhea Skin: denies: Rash Musculoskeletal: denies: Neck pain, Back pain Neurologic: reports: LOC (He is unsure if he lost consciousness or not). denies: Focal weakness, Numbness, Seizure, Confused, Altered mental status PD PAST MEDICAL HISTORY - Past Medical History Cardiovascular: High cholesterol, Coronary artery disease, Atrial fibrillation Respiratory: None Neuro: None Endocrine/Autoimmune: None GI: GERD, Hepatitis : None HEENT: None Psych: Depression Musculoskeletal: None Derm: None - Past Surgical History Past Surgical History: Yes Ortho: Other Cardiovascular: CABG Derm: Skin cancer surgery - Present Medications Home Medications: Ambulatory Orders Medication Instructions Recorded Confirmed Aspirin [Aspir 81] 81 mg PO DAILY 09/11/13 05/29/19 Atorvastatin Calcium 40 mg PO QPM 09/11/13 05/29/19 Carbidopa/Levodopa 25/100 [Sinemet 1 tab PO TID 11/11/13 05/29/19 25 mg/100 mg] Finasteride 5 mg PO DAILY 11/11/13 05/29/19 Tolterodine Tartrate [Detrol] 4 mg PO DAILY 05/26/18 05/29/19 Acyclovir [Zovirax] 400 mg PO BID 02/28/19 05/29/19 C,E,Zinc,Copper 11/Ccomp7i/Lut 1 cap PO DAILY 02/28/19 05/29/19 [Ocuvite Adult 50 Plus Softgel] Cholecalciferol (Vitamin D3) 2,000 mg PO DAILY 02/28/19 05/29/19 [Vitamin D3] Esomeprazole Magnesium [Nexium] 40 mg PO DAILY 02/28/19 05/29/19 Multivitamin/Iron/Folic Acid 1 tab PO DAILY 02/28/19 05/29/19 [Centrum Adults Tablet] [place]-3/Dha/Epa/Fish Oil [Fish Oil 1,000 mg PO DAILY 02/28/19 05/29/19 1,000 mg Softgel] Ubidecarenone [Co Q-10] 300 mg PO DAILY 02/28/19 05/29/19 Ondansetron HCl [Zofran] 8 mg PO Q8HR PRN 03/06/19 05/29/19 Sulfamethox/Trimeth 800/160 1 tab PO DAILY 03/22/19 05/29/19 [Bactrim Ds] - Allergies Allergies/Adverse Reactions: Allergies Allergy/AdvReac Type Severity Reaction Status Date / Time No Known Drug Allergies Allergy Verified 06/19/19 13:51 - Social History Does the pt smoke?: No Smoking Status: Never smoker Does the pt drink ETOH?: Yes Does the pt have substance abuse?: No - Immunizations Immunizations are current?: Yes Immunizations: TDAP >10years/unknown - POLST Patient has POLST: No PD ED PE NORMAL - Vitals Vital signs reviewed: Yes - General General: Alert and oriented X 3, No acute distress - HEENT HEENT: PERRL, Ears normal, Moist mucous membranes, Pharynx benign, Other (Occipital abrasion. No scalp hematomas. No palpable skull fractures.) - Neck Neck: Supple, no meningeal sign, No bony TTP, Other (Full range of motion without pain) - Cardiac Cardiac: RRR, Strong equal pulses - Respiratory Respiratory: No respiratory distress, Clear bilaterally - Abdomen Abdomen: Soft, Non tender, Non distended - Back Back: No spinal TTP (no step off or deformity. no midline TTP. R sided ribs TTP approx 8-9. no crepitus or ecchymosis.) - Derm Derm: Warm and dry, No rash - Neuro Neuro: Alert and oriented X 3 - Psych Psych: Normal mood, Normal affect Results - Vitals Vitals: Vital Signs - 24 hr 06/19/19 06/19/19 06/19/19 13:51 16:00 16:57 Temperature 36.5 C 98.5 C H Heart Rate 63 55 L 55 L Respiratory 14 15 19 Rate Blood Pressure 127/71 125/78 107/65 O2 Saturation 98 98 96 Oxygen O2 Source Room air - Rads (name of study) head CT Radiology: Prelim report reviewed, EMP read contemporaneously, See rad report (No acute disease) chest CT Radiology: Prelim report reviewed, EMP read contemporaneously, See rad report PD MEDICAL DECISION MAKING - ED course Complexity details: reviewed results, re-evaluated patient, considered differential, d/w patient ED course: 78-year-old male after a fall. No acute findings on head CT or chest CT. There are several chronic findings that he needs a follow-up with his doctor for on the chest CT and this report was given to him as well as the instructions to follow-up. Ambulating well. He will utilize Tylenol and Motrin As needed for pain. Patient counseled regarding signs and symptoms for which I believe and urgent re-evaluation would be necessary. Patient with good understanding of and agreement to plan and is comfortable going home at this time This document was made in part using voice recognition software. While efforts are made to proofread this document, sound alike and grammatical errors may occur. Departure - Departure Disposition: 01 Home, Self Care Clinical Impression: Contusion, back Qualifiers: Encounter type: initial encounter Laterality: right Qualified Code(s): S20.221A - Contusion of right back wall of thorax, initial encounter Abrasion head Qualifiers: Encounter type: initial encounter Qualified Code(s): S00.91XA - Abrasion of unspecified part of head, initial encounter Head injury Qualifiers: Encounter type: initial encounter Qualified Code(s): S09.90XA - Unspecified injury of head, initial encounter Condition: Good Instructions: ED Contusion Back, ED Head Injury Closed Follow-Up: Tommy Berger MD [Primary Care Provider] - Within 1 week Comments: Return if you worsen. Follow-up with your doctor for further care. Your head CT does not show any acute abnormalities nor does your chest CT. There are several findings that need to be followed up with your doctor however. These are listed below. Continue Motrin and/or Tylenol as needed for pain. IMPRESSION: 1. Aneurysmal dilatation of the ascending thoracic aorta measuring 4.3 cm. Aortic valve calcifications. Severe coronary artery calcifications. Old granulomas disease. 2. Borderline bilateral lower lobe bronchiectasis with peripheral reticular opacities, suspect mild interstitial pulmonary fibrosis. Probable scarring in the bilateral lower lobes extending to the major fissures. Multiple tiny nodular opacities are seen peripherally seen laterally at the right middle lobe and laterally at the bilateral lower lobes. Minimal nodular opacity seen anteriorly in the right upper lobe. This could be chronic versus infectious/inflammatory disease. Malignancy not excluded. If there is high risk for malignancy, a one-year follow-up chest CT could be obtained to further evaluate as per Fleischner Society criteria. 3. A few minimal groundglass opacities are seen in the left upper lobe, and infectious etiology is possible including atypical pneumonia. 4. See above. Discharge Date/Time: 06/19/19 17:15
--- NOTE | 2019-06-19 16:27 | CT Report ---
Reason: fall, head injury Procedure Date: 06/19/2019 Accession Number: [id number] / [id number] Procedure: CT - HEAD WO CPT Code: Final Report FULL RESULT: EXAM: CT HEAD EXAM DATE: 06/19/2019 04:00 PM. CLINICAL HISTORY: Fall, head injury. COMPARISON: HEAD W/O 03/15/2019 4:40 PM. TECHNIQUE: Multiaxial CT images were obtained from the foramen magnum to the vertex. Reformats: Sagittal and coronal. IV contrast: None. In accordance with CT protocol optimization, one or more of the following dose reduction techniques were utilized for this exam: automated exposure control, adjustment of mA and/or KV based on patient size, or use of iterative reconstructive technique. FINDINGS: Parenchyma: No intraparenchymal hemorrhage. No evidence of mass, midline shift, or CT findings of acute infarction. Periventricular white matter hypodensity likely represents small vessel ischemic disease. Bedolla-white differentiation is distinct. Extraaxial Spaces: Normal for age. No subdural or epidural collections identified. Ventricles: Normal in size and position. Sinuses and Orbits: Imaged paranasal sinuses, orbits, and mastoids show no significant abnormality. Bones: No evidence of fracture or calvarial defect. Other: There is posterior scalp soft tissue swelling. IMPRESSION: No acute intracranial CT abnormality. RADIA
--- NOTE | 2019-06-19 16:29 | CT Report ---
Reason: fall, R rib and back pain Procedure Date: 06/19/2019 Accession Number: [id number] / [id number] Procedure: CT - CHEST WO CPT Code: Final Report FULL RESULT: EXAM: CT CHEST WITHOUT IV CONTRAST EXAM DATE: 06/19/2019 04:00 PM. CLINICAL HISTORY: Fall, right rib and back pain. COMPARISONS: CT ABDOMEN/PELVIS W/O 01/24/2014. TECHNIQUE: Routine helical CT imaging was performed through the chest. IV contrast: None. Reconstructions: Coronal and sagittal. In accordance with CT protocol optimization, one or more of the following dose reduction techniques were utilized for this exam: automated exposure control, adjustment of mA and/or KV based on patient size, or use of iterative reconstructive technique. FINDINGS: Mediastinum: Aneurysmal dilatation of the ascending thoracic aorta measuring 4.3 cm. Aortic valve calcifications. Severe coronary artery calcification. Marked mitral annular calcification. Normal heart size. A few partially calcified mediastinal lymph nodes. Mildly prominent mediastinal lymph nodes. No mediastinal lymphadenopathy. No definite hilar lymphadenopathy. Upper Abdomen: Lobular left lower pole renal cyst again noted, partially imaged, measures 4.7 cm. No imaging follow-up is recommended per consensus recommendations based on imaging criteria. No acute findings are seen. Infrarenal abdominal aorta measures 2.6 cm. Cholecystectomy. Lungs: Borderline bilateral lower lobe bronchiectasis with peripheral reticular opacities, suspect mild interstitial pulmonary fibrosis. Probable scarring in the bilateral lower lobes extending to the major fissures. Multiple tiny nodular opacities are seen peripherally, seen laterally at the right middle lobe and laterally at the bilateral lower lobes. Minimal nodular opacity seen anteriorly in the right upper lobe. This could be chronic versus infectious/inflammatory disease. Malignancy not excluded. If there is high risk for malignancy, a one-year follow-up chest CT could be obtained to further evaluate as per Fleischner Society criteria. Small calcifications seen medially abutting the pleura at the left lower lobe. A few minimal ground-glass opacities are seen in the left upper lobe. No pleural effusion or pneumothorax. No acute bone findings are seen. IMPRESSION: 1. Aneurysmal dilatation of the ascending thoracic aorta measuring 4.3 cm. Aortic valve calcifications. Severe coronary artery calcifications. Old granulomas disease. 2. Borderline bilateral lower lobe bronchiectasis with peripheral reticular opacities, suspect mild interstitial pulmonary fibrosis. Probable scarring in the bilateral lower lobes extending to the major fissures. Multiple tiny nodular opacities are seen peripherally, seen laterally at the right middle lobe and laterally at the bilateral lower lobes. Minimal nodular opacity seen anteriorly in the right upper lobe. This could be chronic versus infectious/inflammatory disease. Malignancy not excluded. If there is high risk for malignancy, a one-year follow-up chest CT could be obtained to further evaluate as per Fleischner Society criteria. 3. A few minimal groundglass opacities are seen in the left upper lobe, and infectious etiology is possible including atypical pneumonia. 4. See above. RADIA
[2019-06-19 16:58] VITALS: BP 107/65
== END 2019-06-19 17:15 | disposition home or self-care (01) ==
LOC: ED 13:44
DX: S20.221A Contusion of right back wall of thorax, initial encounter (principal); S00.01XA Abrasion of scalp, initial encounter; S09.90XA Unspecified injury of head, initial encounter; W00.0XXA Fall on same level due to ice and snow, initial encounter; I77.810 Thoracic aortic ectasia; J47.9 Bronchiectasis, uncomplicated; R91.8 Other nonspecific abnormal finding of lung field
CPT/HCPCS: 70450; 71250; 99284

== ENCOUNTER 2020-01-30 10:20 | Emergency (ER) | payer MEDICARE, OTHER ==
[2020-01-30 10:54] LABS: BASOPHILS % (AUTO) 0.5 %; EOSINOPHILS # (AUTO) 0.4 10^3/uL (0.0-0.7); HGB - HEMOGLOBIN 15.5 g/dL (14.0-18.0); LYMPHOCYTES % (AUTO) 25.4 %; MEAN CORPUSCULAR HEMOGLOBIN 32.5 pg (27.0-31.0); MEAN CORPUSCULAR HGB CONC 34.2 g/dL (32.0-36.0); MEAN PLATELET VOLUME 10.3 fL (7.4-11.4); MONOCYTES # (AUTO) 0.7 10^3/uL (0.0-1.0); MONOCYTES % (AUTO) 8.9 %; NEUTROPHILS # (AUTO) 4.7 10^3/uL (1.5-6.6); NEUTROPHILS % (AUTO) 60.1 %; PLT - PLATELET COUNT 103 10^3/uL (130-450); RED BLOOD COUNT 4.77 10^6/uL (4.70-6.10); WHITE BLOOD COUNT 7.8 x10^3/uL (4.8-10.8)
[2020-01-30 11:02] LABS: ALBUMIN 3.6 g/dL (3.2-5.5); ALBUMIN/GLOBULIN RATIO 1.1 (1.0-2.2); ALKALINE PHOSPHATASE 66 IU/L (42-121); ALT ALANINE AMINOTRANSFERASE < 10 IU/L (10-60); AST ASPARTATE AMINOTRANSFERASE 25 IU/L (10-42); BILIRUBIN,TOTAL 1.4 mg/dL (0.2-1.0); BUN - BLOOD UREA NITROGEN 17 mg/dL (6-20); CARBON DIOXIDE - CO2 26 mmol/L (21-32); CHLORIDE 105 mmol/L (101-111); CREATININE 1.1 mg/dL (0.6-1.2); GLUCOSE 112 mg/dL (70-100); LIPASE 23 U/L (22-51); SODIUM 140 mmol/L (135-145); TOTAL PROTEIN 6.8 g/dL (6.7-8.2)
--- NOTE | 2020-01-30 11:04 | XRAY Report ---
PROCEDURE: Chest 1 View X-Ray INDICATIONS: Chest Pain TECHNIQUE: One view of the chest was acquired. COMPARISON: Prior chest CT scanning 06/19/2019 FINDINGS: Surgical changes and devices: Sternotomy wires, probable prior CABG. Lungs and pleura: No pleural effusions or pneumothorax. Lungs are abnormal, with a patchy alveolar infiltration pattern not previously present on CT scanning from June of this year. This is best seen i n each lung base, and could represent a manifestation of atypical pneumonia but also CHF superimposed on COPD could produce this appearance.. Mediastinum: Mediastinal contours appear normal. Heart size is normal. Bones and chest wall: No suspicious bony lesions. Overlying soft tissues appear unremarkable. IMPRESSION: Interstitial prominence, considered most likely a manifestation of mild pulmonary edema superimposed on COPD. Atypical mild pneumonia also should be considered as a potential cause given the absence of cardiomegaly. Reviewed by: Martin Crowder MD on 01/30/2020 11:03 AM PST Approved by: Martin Crowder MD on 01/30/2020 11:03 AM PST Station ID: [id number]
--- NOTE | 2020-01-30 11:36 | ED Physician Documentation ---
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 Patient is without fever chills back pain nausea or leg swelling. He was found to have complete heart block on initial arrival to the ED. Denies dizziness or symptoms at rest. Review of Systems Ten Systems: 10 systems reviewed and negative Constitutional: denies: Fever, Chills Cardiac: reports: Chest pain / pressure, Palpitations Respiratory: reports: Dyspnea, Cough PD PAST MEDICAL HISTORY - Past Medical History Cardiovascular: High cholesterol, Coronary artery disease, Atrial fibrillation Respiratory: None Neuro: None Endocrine/Autoimmune: None GI: GERD, Hepatitis : None HEENT: None Psych: Depression Musculoskeletal: None Derm: None - Past Surgical History Past Surgical History: Yes Ortho: Other Cardiovascular: CABG Derm: Skin cancer surgery - Present Medications Home Medications: Ambulatory Orders Medication Instructions Recorded Confirmed Aspirin [Aspir 81] 81 mg PO DAILY 09/11/13 01/08/20 Atorvastatin Calcium 40 mg PO QPM 09/11/13 01/08/20 Carbidopa/Levodopa 25/100 [Sinemet 1 tab PO TID 11/11/13 01/08/20 25 mg/100 mg] Finasteride 5 mg PO DAILY 11/11/13 01/08/20 Tolterodine Tartrate [Detrol] 4 mg PO DAILY 05/26/18 01/08/20 Acyclovir [Zovirax] 400 mg PO BID 02/28/19 01/08/20 C,E,Zinc,Copper 11/Ynhnq6h/Lut 1 cap PO DAILY 02/28/19 01/08/20 [Ocuvite Adult 50 Plus Softgel] Cholecalciferol (Vitamin D3) 2,000 mg PO DAILY 02/28/19 01/08/20 [Vitamin D3] Esomeprazole Magnesium [Nexium] 40 mg PO DAILY 02/28/19 01/08/20 Multivitamin/Iron/Folic Acid 1 tab PO DAILY 02/28/19 01/08/20 [Centrum Adults Tablet] [place]-3/Dha/Epa/Fish Oil [Fish Oil 1,000 mg PO DAILY 02/28/19 01/08/20 1,000 mg Softgel] Ubidecarenone [Co Q-10] 300 mg PO DAILY 02/28/19 01/08/20 ondansetron HCL [Zofran] 8 mg PO Q8HR PRN 03/06/19 01/08/20 Sulfamethox/Trimeth 800/160 1 tab PO DAILY 03/22/19 01/08/20 [Bactrim Ds] Tolterodine Tartrate [Detrol LA] 4 mg PO DAILY 10/20/19 01/08/20 Gabapentin 1 tab PO DAILY 11/13/19 01/08/20 Gabapentin 1 tab PO DAILY 12/11/19 01/08/20 - Allergies Allergies/Adverse Reactions: Allergies Allergy/AdvReac Type Severity Reaction Status Date / Time No Known Drug Allergies Allergy Verified 01/30/20 10:28 - Social History Does the pt smoke?: No Smoking Status: Never smoker Does the pt drink ETOH?: Yes Does the pt have substance abuse?: No - Immunizations Immunizations are current?: Yes Immunizations: TDAP >10years/unknown - POLST Patient has POLST: No PD ED PE NORMAL - Vitals Vital signs reviewed: Yes - General General: Alert and oriented X 3 - HEENT HEENT: Atraumatic, PERRL, EOMI - Cardiac Cardiac: Other (Bradycardic rate, regular rhythm) - Respiratory Respiratory: No respiratory distress, Clear bilaterally - Abdomen Abdomen: Normal bowel sounds, Non tender, Non distended - Male Male : Deferred - Rectal Rectal: Deferred - Back Back: No CVA TTP - Derm Derm: Normal color - Extremities Extremities: No deformity, No edema - Neuro Neuro: Alert and oriented X 3 - Psych Psych: Normal mood, Normal affect Results - Vitals Vitals: Vital Signs - 24 hr 01/30/20 01/30/20 01/30/20 10:29 10:41 11:00 Temperature 36.6 C Heart Rate 32 L 32 L 30 L Respiratory 22 18 21 Rate Blood Pressure 122/59 L 121/64 101/74 O2 Saturation 97 96 95 01/30/20 01/30/20 01/30/20 11:15 11:32 11:39 Temperature Heart Rate 31 L 32 L 61 Respiratory 17 17 13 Rate Blood Pressure 99/40 L 134/59 H 110/63 O2 Saturation 95 97 94 Oxygen O2 Source Room air - Labs Labs: Laboratory Tests 01/30/20 01/30/20 01/30/20 10:43 10:45 10:45 WBC 7.8 RBC 4.77 Hgb 15.5 Hct 45.3 MCV 95.0 H MCH 32.5 H MCHC 34.2 RDW 15.0 Plt Count 103 L MPV 10.3 Neut # (Auto) 4.7 Lymph # (Auto) 2.0 Powell # (Auto) 0.7 Eos # (Auto) 0.4 Baso # (Auto) 0.0 Absolute Nucleated RBC 0.00 Nucleated RBC % 0.0 Sodium 140 Potassium 4.3 Chloride 105 Carbon Dioxide 26 Anion Gap 9.0 BUN 17 Creatinine 1.1 Estimated GFR (MDRD) 65 L Glucose 112 H Calcium 9.0 Magnesium 2.0 Total Bilirubin 1.4 H AST 25 ALT < 10 L Alkaline Phosphatase 66 Troponin I High Sens Total Protein 6.8 Albumin 3.6 Globulin 3.2 Albumin/Globulin Ratio 1.1 Lipase 23 Nasal Adenovirus (PCR) Nasal B. parapertussis DNA (PCR) Nasal Coronavir 229E PCR Nasal Coronavir HKU1 PCR Nasal Coronavir NL63 PCR Nasal Coronavir OC43 PCR Nasal Enterovir/Rhinovir PCR Nasal Influenza B PCR Nasal Influenza A PCR Nasal Parainfluen 1 PCR Nasal Parainfluen 2 PCR Nasal Parainfluen 3 PCR Nasal Parainfluen 4 PCR Nasal RSV (PCR) Nasal B.pertussis DNA PCR Nasal C.pneumoniae (PCR) [place] Human Metapneumo PCR Nasal M.pneumoniae (PCR) Nasal SARS-CoV-2 (PCR) 01/30/20 01/30/20 10:45 10:47 WBC RBC Hgb Hct MCV MCH MCHC RDW Plt Count MPV Neut # (Auto) Lymph # (Auto) Powell # (Auto) Eos # (Auto) Baso # (Auto) Absolute Nucleated RBC Nucleated RBC % Sodium Potassium Chloride Carbon Dioxide Anion Gap BUN Creatinine Estimated GFR (MDRD) Glucose Calcium Magnesium Total Bilirubin AST ALT Alkaline Phosphatase Troponin I High Sens 26.0 H* Total Protein Albumin Globulin Albumin/Globulin Ratio Lipase Nasal Adenovirus (PCR) NOT DETECTED Nasal B. parapertussis DNA (PCR) NOT DETECTED Nasal Coronavir 229E PCR NOT DETECTED Nasal Coronavir HKU1 PCR NOT DETECTED Nasal Coronavir NL63 PCR NOT DETECTED Nasal Coronavir OC43 PCR NOT DETECTED Nasal Enterovir/Rhinovir PCR NOT DETECTED Nasal Influenza B PCR NOT DETECTED Nasal Influenza A PCR NOT DETECTED Nasal Parainfluen 1 PCR NOT DETECTED Nasal Parainfluen 2 PCR NOT DETECTED Nasal Parainfluen 3 PCR NOT DETECTED Nasal Parainfluen 4 PCR NOT DETECTED Nasal RSV (PCR) NOT DETECTED Nasal B.pertussis DNA PCR NOT DETECTED Nasal C.pneumoniae (PCR) NOT DETECTED [place] Human Metapneumo PCR NOT DETECTED Nasal M.pneumoniae (PCR) NOT DETECTED Nasal SARS-CoV-2 (PCR) NOT DETECTED PD MEDICAL DECISION MAKING - ED course ED course: 79-year-old man presented in complete heart block, vital signs otherwise stable. asymptomatic aside from subjective dyspnea. 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. Called [facility] but there are no beds av ailable. Discussed with [facility] physician Dr. Marty Jordan who will accept. d/w Dr. Buckner at [facility] - will evaluate patient on arrival. - Critical Care Time(min): 30 Comments: I have personally performed a history, physical exam, and my own medical decision making. Upon my evaluation, this patient had a high probability of imminent or life- threatening deterioration due to complete heart block, which required my direct attention, intervention, and personal management. I have personally provided _30_ minutes of critical care time exclusive of time spent on separately billable procedures. Time includes review of laboratory data, radiology results, discussion with consultants, and monitoring for potential decompensation. Interventions were performed as documented above. Time Includes: Direct patient care, Review records, Reassess patient, Document care, Coordinate care Data interpretation: Labs, Pulse ox, CXR Departure - Departure Disposition: 02 Transfer Acute Care Hosp Clinical Impression: Complete heart block, Shortness of breath, Lightheaded Discharge Date/Time: 01/30/20 11:56
[2020-01-30 11:40] VITALS: BP 110/63
[2020-01-30 11:43] LABS: C. PNEUMONIAE- RESP PCR PANEL NOT DETECTED
== END 2020-01-30 11:56 | disposition short-term general hospital (02) ==
LOC: ED 10:20
DX: I44.2 Atrioventricular block, complete (principal); I49.1 Atrial premature depolarization; R06.02 Shortness of breath; Z20.828 Contact with and (suspected) exposure to other viral communicable diseases; R42 Dizziness and giddiness; R91.8 Other nonspecific abnormal finding of lung field; I25.10 Atherosclerotic heart disease of native coronary artery without angina pectoris; Z95.1 Presence of aortocoronary bypass graft; Z79.82 Long term (current) use of aspirin
CPT/HCPCS: 0202U; 36415; 80053; 83690; 83735; 84484; 85025; 93005; 99285; 99291

== ENCOUNTER 2020-05-03 12:46 | Emergency (ER) | payer MEDICARE, OTHER ==
[2020-05-03] MEDS ORDERED: MORPHINE 2 MG/ML CARPUJECT IVP STA (13:07)
[2020-05-03] MEDS ORDERED: KETOROLAC 60 MG/2 ML VIAL IM STA (13:07)
--- NOTE | 2020-05-03 13:15 | ED Physician Documentation ---
PD HPI BACK PAIN - Stated complaint Stated Complaint: BACK PX - Chief complaint Chief Complaint: Back Pain - History obtained from History obtained from: Patient - History of Present Illness Timing - onset: How many weeks ago (2) Timing - duration: Days (2) Timing - details: Gradual onset Pain level max: 10 Pain level now: 10 Location: Lower, Right, Left Quality: Pain, Spasm, Similar to prior episodes Associated symptoms: No: Fever, Weakness, Numbness, Incontinent of urine, Unable to urinate, Hematuria, Incontinent of stool Improves with: Rest Worsened by: Movement, Lifting, Twisting Contributing factors: Other (Patient does have myelodysplastic syndrome, but states it is "under control".). No: Lifting, Twisting, Trauma, Anticoagulated, Cancer, IVDA, Out of meds Recently seen: Clinic - Additional information Additional information: Patient is a 79-year-old male who presents to the emergency department stating that his low back has been hurting for 2 weeks. He states started after trying to pull start a lawnmower. Back is gradually been getting worse and worse. Worse with movement, better with rest. Described as lower left and right. Described as spasm. He saw his PCP yesterday and was given shots in his arm. He does not know what they were. He states he is taking oxycodone 5 mg by mouth once a day. No muscle relaxants. Review of Systems Constitutional: denies: Fever, Chills Throat: denies: Sore throat Cardiac: denies: Chest pain / pressure, Palpitations Respiratory: denies: Cough GI: denies: Vomiting, Diarrhea : denies: Dysuria, Frequency, Hesitancy, Unable to Void, Incontinent Skin: denies: Rash Musculoskeletal: denies: Neck pain Neurologic: denies: Focal weakness, Numbness, Headache PD PAST MEDICAL HISTORY - Past Medical History Past Medical History: Yes Cardiovascular: High cholesterol, Coronary artery disease, Atrial fibrillation Respiratory: None Neuro: None Endocrine/Autoimmune: None GI: GERD, Hepatitis : None HEENT: None Psych: Depression Musculoskeletal: None Derm: None - Past Surgical History Past Surgical History: Yes Ortho: Other Cardiovascular: CABG Derm: Skin cancer surgery - Present Medications Home Medications: Ambulatory Orders Medication Instructions Recorded Confirmed Aspirin [Aspir 81] 81 mg PO DAILY 09/11/13 04/08/20 Atorvastatin Calcium 40 mg PO QPM 09/11/13 04/08/20 Carbidopa/Levodopa 25/100 [Sinemet 1 tab PO TID 11/11/13 04/08/20 25 mg/100 mg] Finasteride 5 mg PO DAILY 11/11/13 04/08/20 Tolterodine Tartrate [Detrol] 4 mg PO DAILY 05/26/18 04/08/20 Acyclovir [Zovirax] 400 mg PO BID 02/28/19 04/08/20 C,E,Zinc,Copper 11/Xpmyh8t/Lut 1 cap PO DAILY 02/28/19 04/08/20 [Ocuvite Adult 50 Plus Softgel] Cholecalciferol (Vitamin D3) 2,000 mg PO DAILY 02/28/19 04/08/20 [Vitamin D3] Esomeprazole Magnesium [Nexium] 40 mg PO DAILY 02/28/19 04/08/20 Multivitamin/Iron/Folic Acid 1 tab PO DAILY 02/28/19 04/08/20 [Centrum Adults Tablet] [place]-3/Dha/Epa/Fish Oil [Fish Oil 1,000 mg PO DAILY 02/28/19 04/08/20 1,000 mg Softgel] Ubidecarenone [Co Q-10] 300 mg PO DAILY 02/28/19 04/08/20 ondansetron HCL [Zofran] 8 mg PO Q8HR PRN 03/06/19 04/08/20 Sulfamethox/Trimeth 800/160 1 tab PO DAILY 03/22/19 04/08/20 [Bactrim Ds] Tolterodine Tartrate [Detrol LA] 4 mg PO DAILY 10/20/19 04/08/20 Gabapentin 1 tab PO DAILY 11/13/19 04/08/20 Gabapentin 1 tab PO DAILY 12/11/19 04/08/20 Meloxicam [Mobic] 7.5 mg PO BID PRN #40 tablet 05/03/20 oxyCODONE [Roxicodone] 5 mg PO Q6H PRN #20 tablet 05/03/20 - Allergies Allergies/Adverse Reactions: Allergies Allergy/AdvReac Type Severity Reaction Status Date / Time No Known Drug Allergies Allergy Verified 05/03/20 12:50 - Social History Does the pt smoke?: No Smoking Status: Never smoker Does the pt drink ETOH?: Yes Does the pt have substance abuse?: No - Immunizations Immunizations are current?: Yes Immunizations: TDAP >10years/unknown - POLST Patient has POLST: No PD ED PE NORMAL - Vitals Vital signs reviewed: Yes - General General: Alert and oriented X 3, No acute distress - HEENT HEENT: Atraumatic, PERRL, Moist mucous membranes - Neck Neck: Supple, no meningeal sign, No bony TTP - Cardiac Cardiac: RRR, Strong equal pulses - Respiratory Respiratory: No respiratory distress, Clear bilaterally - Abdomen Abdomen: Soft, Non tender, Non distended - Back Back: No spinal TTP, Other (No midline tenderness to palpation or percussion. Bilateral lower lumbar paraspinal spasm present. Right greater than left) - Derm Derm: Warm and dry - Extremities Extremities: No edema, No calf tenderness / cord, Other (Normal bilateral lower extremity patellar and ankle jerk reflexes. Normal great toe extension bilateral ly. no saddle anesthesia) - Neuro Neuro: Alert and oriented X 3, No motor deficit, No sensory deficit - Psych Psych: Normal mood, Normal affect - Free text exam Free text exam: Patient appears to be having visible back spasms. Results - Vitals Vitals: Vital Signs - 24 hr 05/03/20 12:50 Temperature 36.6 C Heart Rate 62 Respiratory 18 Rate Blood Pressure 120/71 O2 Saturation 98 Oxygen O2 Source Room air - Rads (name of study) Lumbar spine x-ray Radiology: Prelim report reviewed, EMP read contemporaneously, See rad report (L1 compression fracture resulting in approximately 50% loss of normal vertebral body height. Compression fracture has occurred in the interval since prior exam obtained 05/01/2019. ) L spine CT Radiology: Prelim report reviewed, EMP read contemporaneously, See rad report (Chronic-appearing L1 compression fracture which results in approximately 40-50% loss of normal vertebral body height. ) PD MEDICAL DECISION MAKING - ED course Complexity details: reviewed results, re-evaluated patient, considered differential (No cauda equina, no spinal epidural abscess, no fracture, no aortic dissection or evidence of aneursym rupture), d/w patient ED course: 79-year-old male with back pain for the past 2 weeks. Has a chronic appearing L1 compression fracture. Will prescribe pain medication and muscle relaxants for home and have him follow-up with his doctor for further care. Pain well controlled here. Patient counseled regarding signs and symptoms for which I believe and urgent re-evaluation would be necessary. Patient with good understanding of and agreement to plan and is comfortable going home at this time This document was made in part using voice recognition software. While efforts are made to proofread this document, sound alike and grammatical errors may occur. Departure - Departure Disposition: 01 Home, Self Care Clinical Impression: Back spasm Condition: Good Instructions: ED Low Back Pain Injury Follow-Up: Blane Burkett MD [Primary Care Provider] - Within 1 week Prescriptions: Meloxicam [Mobic] 7.5 mg PO BID PRN #40 tablet PRN Reason: Pain oxyCODONE [Roxicodone] 5 mg PO Q6H PRN #20 tablet PRN Reason: back pain Comments: Use the medication as prescribed for pain. Your L1 compression fracture appears old. This should improve over the next week or 2. Follow-up with your doctor for further care. Do not drink alcohol or drive while on narcotic pain medicine. Note that many narcotic pain relievers also contain tylenol/acetaminophen. Please ensure that your total dose of acetaminophen from all sources does not exceed 3 grams (3000mg) per day. You may constipated on this medication, take a stool softener such as "Colace" twice a day while you are on it. Also recommend a kpkn-gdm-nmyytbs laxative such as senna or MiraLAX any day that you do not have a bowel movement. If you received narcotic pain medication in the emergency department, do not drive or operate machinery for the next 24 hours.
[2020-05-03] MEDS ORDERED: MORPHINE 2 MG/ML CARPUJECT IM STA (13:29)
--- NOTE | 2020-05-03 14:10 | XRAY Report ---
PROCEDURE: Lumbar Spine 2 View INDICATIONS: back pain, s/p starting a mower 2 weeks ago TECHNIQUE: 3 views of the lumbar spine were acquired. COMPARISON: 05/01/2019.. FINDINGS: Bones: 5 [id number] vertebrae are present. Multilevel degenerative disc disease and facet arth ropathy are stable. Mild convex right scoliosis is stable. There is normal bony alignment. Loss of he ight noted in a T1 vertebral body compatible with compression fracture which has occurred in the inte rval since the prior exam obtained 05/01/2019. L1 compression fracture results in approximately 50% lo ss of normal vertebral body height. Soft tissues: Overlying bowel gas pattern is normal. No suspicious soft tissue calcifications. IMPRESSION: L1 compression fracture resulting in approximately 50% loss of normal vertebral body height. Compress ion fracture has occurred in the interval since prior exam obtained 05/01/2019. Reviewed by: Kalli Burks MD, PhD on 05/03/2020 2:08 PM PDT Approved by: Kalli Burks MD, PhD on 05/03/2020 2:08 PM PDT Station ID: [id number]
--- NOTE | 2020-05-03 15:01 | CT Report ---
PROCEDURE: LUMBAR SPINE WO INDICATIONS: L1 compression fracture TECHNIQUE: Noncontrast 3 mm thick sections acquired from the T12 level to the sacrum. Sagittal and coronal refo rmats were constructed. For radiation dose reduction, the following was used: automated exposure co ntrol, adjustment of mA and/or kV according to patient size. COMPARISON: None. FINDINGS: Image quality: Excellent. Bones: There is normal bony alignment. Chronic-appearing L1 compression fracture noted. L1 compressi on fracture results in approximately 40-50% loss of normal vertebral body height. No retropulsed frag ments are kyphosis associated with the L1 compression deformity. No suspicious lytic or blastic bony lesions. Degenerative disc changes noted throughout the lumbar spine. L2-L3, L3-L4, L4-L5 and L5-S1 f acet arthropathy. Postsurgical changes compatible with L3 and L4 laminectomies noted. No severe centr al stenosis. Severe bilateral L3-L4 and L4-L5 neural foraminal narrowing with compression of the exit ing bilateral L3 and L4 nerve roots. Soft tissues: No retroperitoneal masses or hematomas. Visualized aorta is normal in caliber. Scatte red atherosclerotic calcifications are noted in the abdominal and pelvic vasculature. IMPRESSION: Chronic-appearing L1 compression fracture which results in approximately 40-50% loss of normal verteb ral body height. Reviewed by: Kalli Burks MD, PhD on 05/03/2020 2:59 PM PDT Approved by: Kalli Burks MD, PhD on 05/03/2020 2:59 PM PDT Station ID: [id number]
[2020-05-03 15:04] VITALS: BP 111/68
== END 2020-05-03 15:10 | disposition home or self-care (01) ==
LOC: ED 12:46
DX: M62.830 Muscle spasm of back (principal); M51.37 Other intervertebral disc degeneration, lumbosacral region; M48.56XS Collapsed vertebra, not elsewhere classified, lumbar region, sequela of fracture; D46.9 Myelodysplastic syndrome, unspecified; Z79.82 Long term (current) use of aspirin
CPT/HCPCS: 96372; 99284

== ENCOUNTER 2020-09-09 11:30 | Outpatient (CLI) | payer MEDICARE, OTHER | END 2020-09-09 23:59 | disposition home or self-care (01) | LOC: COV 11:30 | PROVIDERS: ATTEND Physician Assistant | DX: Z01.812 Encounter for preprocedural laboratory examination (principal); I48.0 Paroxysmal atrial fibrillation; I47.2 Ventricular tachycardia; Z20.822 Contact with and (suspected) exposure to COVID-19 ==

== ENCOUNTER 2020-09-26 11:30 | Outpatient (CLI) | payer MEDICARE, OTHER ==
[2020-09-26] MEDS ORDERED: BUFFERED LIDOCAINE 10 ML SYRINGE ONE (11:47)
[2020-09-26] MEDS ORDERED: LACTATED RINGERS 1,000 ML IV ONE ×2 (11:55→13:04)
[2020-09-26] MEDS ORDERED: MIDAZOLAM 2 MG/2 ML VIAL ONE (12:25)
[2020-09-26] MEDS ORDERED: fentaNYL 100 MCG/2 ML VIAL ONE (12:26)
[2020-09-26 13:41] VITALS: BP 105/70
--- NOTE | 2020-09-26 15:24 | CT Report ---
PROCEDURE: BONE MARROW BX W/ASPIRATION Sedation analgesia for 30 minutes. INDICATIONS: MDS RAEB TECHNIQUE: The indications, alternatives, benefits, risks, and possible complications of the procedure were comm unicated to the patient. Informed written consent from the patient was obtained and placed in the art. Continuous EKG and hemodynamic monitoring was started by trained personnel. For radiation dose reduction, the following was used: automated exposure control, adjustment of mA and/or kV according to patient size. The patient was brought to the CT suite and icu tech spiral CT imaging was performed with localization g rid. The appropriate site for percutaneous access to the biopsy target was marked, was prepped and d raped sterilely, and was infused with local anaesthesia. Under CT guidance, a core biopsy trocar and needle set was advanced to the biopsy target, and specimen(s) were obtained. The trocar and needle were then removed, and the patient was sent for post-procedure monitoring. COMPARISON: None. FINDINGS: Biopsy site: Left posterior iliac bone Needle: 18 gauge biopsy needle with introducer trocar. Number of passes: 1 Medications: 1% lidocaine for local anaesthesia. IV Fentanyl and Versed for conscious sedation for 30 minutes (see nursing record). Complications: None. IMPRESSION: Successful CT-guided bone marrow biopsy. Reviewed by: Lien Kilpatrick MD on 09/26/2020 3:22 PM PDT Approved by: Lien Kilpatirck MD on 09/26/2020 3:22 PM PDT Station ID: [id number]
== END 2020-09-26 11:31 | disposition home or self-care (01) ==
LOC: LAB 11:30
PROVIDERS: ATTEND Internal Medicine Hematology & Oncology
DX: D46.21 Refractory anemia with excess of blasts 1 (principal)
CPT/HCPCS: 38222; 77012; J7120

== ENCOUNTER 2021-04-04 08:41 | Outpatient (CLI) | payer MEDICARE, OTHER ==
[2021-04-04] MEDS ORDERED: LACTATED RINGERS 1,000 ML IV ONE ×2 (08:53→12:30)
[2021-04-04 09:31] LABS: INR 1.3 (0.8-1.2); PT - PROTHROMBIN TIME 14.6 secs (9.9-12.6)
[2021-04-04] MEDS ORDERED: fentaNYL 100 MCG/2 ML VIAL ONE (11:13)
[2021-04-04] MEDS ORDERED: MIDAZOLAM 2 MG/2 ML VIAL ONE (11:13)
[2021-04-04 13:11] VITALS: BP 105/61
[2021-04-04] MEDS ORDERED: lidocaine 1% 20 ML MDV SUBQ ONE (20:31)
--- NOTE | 2021-04-09 09:19 | CT Report ---
PROCEDURE: 1. Bone marrow aspiration and biopsy. 2. Moderate sedation. INDICATIONS: MDS TECHNIQUE: The indications, alternatives, benefits, risks, and possible complications of the procedure were comm unicated to the patient. Informed written consent from the patient was obtained and placed in the art. Continuous EKG and hemodynamic monitoring was started by trained personnel. For radiation dose reduction, the following was used: automated exposure control, adjustment of mA and/or kV according to patient size. The patient was brought to the CT suite and brick paver spiral CT imaging was performed with localization g rid. The appropriate site for percutaneous access to the biopsy target was marked, was prepped and d raped sterilely, and was infused with local anaesthesia. Under CT guidance, a core biopsy trocar and needle set was advanced to the biopsy target, and specimen(s) were obtained. The trocar and needle were then removed, and the patient was sent for post-procedure monitoring. COMPARISON: None. FINDINGS: Biopsy site: Left posterior superior iliac spine. Needle: 11 gauge biopsy needle with introducer trocar. Number of passes: 1 pass was made with the trocar. Initially bone marrow aspiration was obtained fol lowed by bone marrow biopsy. Medications: 1% lidocaine for local anaesthesia. IV Fentanyl and Versed for conscious sedation (see nursing record). Complications: None. IMPRESSION: Successful CT-guided biopsy of bone marrow from the left posterior superior iliac spine. . Reviewed by: Rick Arellano on 04/09/2021 9:17 AM [facility] Approved by: Rick Arellano on 04/09/2021 9:17 AM PST Station ID: [id number]
== END 2021-04-04 08:42 | disposition home or self-care (01) ==
LOC: DI 08:41
PROVIDERS: ATTEND Internal Medicine Hematology & Oncology
DX: C94.6 Myelodysplastic disease, not elsewhere classified (principal)
CPT/HCPCS: 36415; 38222; 77012; 85049; 85610; 85730; J7120

== ENCOUNTER 2021-06-10 12:24 | Outpatient (CLI) | payer MEDICARE, OTHER ==
[2021-06-10 13:10] LABS: CHOL/HDL RATIO 2.2 (<5.0); CHOLESTEROL 124 mg/dL; HDL CHOLESTEROL 56 mg/dL; LDL CHOLESTEROL,CALCULATED 58 mg/dL; TRIGLYCERIDES 48 mg/dL; VLDL CHOLESTEROL 10 mg/dL
== END 2021-06-10 12:25 | disposition home or self-care (01) ==
LOC: LAB 12:24
PROVIDERS: ATTEND Nurse Practitioner Acute Care
DX: E78.5 Hyperlipidemia, unspecified (principal)
CPT/HCPCS: 36415; 80061; 83721

== ENCOUNTER 2021-07-31 08:50 | Outpatient (CLI) | payer MEDICARE, OTHER | END 2021-07-31 08:51 | disposition left against medical advice (07) | LOC: EMS 08:50 | DX: R06.02 Shortness of breath (principal) ==

== ENCOUNTER 2021-07-31 10:23 | Observation (INO) | payer MEDICARE, OTHER ==
[2021-07-31] MEDS ORDERED: SODIUM CHLORIDE 0.9% 2,585.49 ML IV STA (10:38)
[2021-07-31] MEDS ORDERED: VANCOMYCIN INJ 1.75 GM in SODIUM CHLORIDE 0.9% 500 ML IV STA (10:38)
[2021-07-31] MEDS ORDERED: CEFEPIME 2 GM in SODIUM CHLORIDE 0.9% MINIBAG 100 ML IV STA (10:38)
[2021-07-31 10:50] LABS: BASOPHILS % (AUTO) 0.7 %; EOSINOPHILS # (AUTO) 0.1 10^3/uL (0.0-0.7); EOSINOPHILS % (AUTO) 3.9 %; HCT - HEMATOCRIT 27.7 % (42.0-52.0); HGB - HEMOGLOBIN 9.2 g/dL (14.0-18.0); LYMPHOCYTES # (AUTO) 0.8 10^3/uL (1.5-3.5); LYMPHOCYTES % (AUTO) 52.9 %; MEAN CORPUSCULAR HEMOGLOBIN 39.5 pg (27.0-31.0); MEAN CORPUSCULAR HGB CONC 33.2 g/dL (32.0-36.0); MEAN CORPUSCULAR VOLUME 118.9 fL (80.0-94.0); MEAN PLATELET VOLUME 9.7 fL (7.4-11.4); MONOCYTES # (AUTO) 0.1 10^3/uL (0.0-1.0); MONOCYTES % (AUTO) 3.9 %; NEUTROPHILS % (AUTO) 38.6 %; PLT - PLATELET COUNT 51 10^3/uL (130-450); RED BLOOD COUNT 2.33 10^6/uL (4.70-6.10); RED CELL DISTRIBUTION WIDTH 18.1 % (12.0-15.0)
[2021-07-31 10:55] LABS: NEUTROPHILS # (AUTO) 0.6 10^3/uL (1.5-6.6); WHITE BLOOD COUNT 1.5 x10^3/uL (4.8-10.8)
[2021-07-31 10:56] LABS: SLIDE REVIEW? Indicated
[2021-07-31 11:00] LABS: ALBUMIN/GLOBULIN RATIO 1.5 (1.0-2.2); ALKALINE PHOSPHATASE 44 IU/L (42-121); ALT ALANINE AMINOTRANSFERASE < 10 IU/L (10-60); AST ASPARTATE AMINOTRANSFERASE 16 IU/L (10-42); BILIRUBIN,TOTAL 1.8 mg/dL (0.2-1.0); BUN - BLOOD UREA NITROGEN 18 mg/dL (6-20); CALCIUM 8.9 mg/dL (8.5-10.3); CARBON DIOXIDE - CO2 30 mmol/L (21-32); CHLORIDE 102 mmol/L (101-111); CREATININE 0.9 mg/dL (0.6-1.2); GFR - MDRD 81 (>89); GLUCOSE 97 mg/dL (70-100); POTASSIUM 4.2 mmol/L (3.5-5.0); SODIUM 137 mmol/L (135-145); TOTAL PROTEIN 6.7 g/dL (6.7-8.2)
--- NOTE | 2021-07-31 11:12 | XRAY Report ---
PROCEDURE: Chest 1 View X-Ray INDICATIONS: WORSENING DYSPNEA TECHNIQUE: One view of the chest was acquired. COMPARISON: Chest x-ray dated 07/17/2021 FINDINGS: Surgical changes and devices: Median sternotomy. Left-sided pacer. Lungs and pleura: No pleural effusions or pneumothorax. There is moderate diffuse reticulonodular pu lmonary opacity. Mediastinum: Mediastinal contours appear normal. Heart size is enlarged. Bones and chest wall: No suspicious bony lesions. Overlying soft tissues appear unremarkable. IMPRESSION: Moderate CHF. Reviewed by: Peg Jimenez MD on 07/31/2021 11:10 AM PDT Approved by: Peg Jimenez MD on 07/31/2021 11:10 AM PDT Station ID: [id number]
--- NOTE | 2021-07-31 11:26 | ED Physician Documentation ---
History of Present Illness - Stated complaint Stated Complaint: SOA/LOW BLOOD PRESSURE - Chief complaint Chief Complaint: Cardiac - History obtained from History obtained from: Patient - History of Present Illness Timing: How many weeks ago (2) - Additonal information Additional information: 80-year-old male with history of A. fib on Xarelto, coronary artery disease status post CABG x3, AICD in place, history of myelodysplastic syndrome on weekly chemotherapy presents by private vehicle for 2 weeks of gradually worsening shortness of breath and low blood pressure reading at home today. Patient was evaluated by EMS services earlier this morning, however he declined transport at that time stating that he would prefer to go by private vehicle. Patient states that he has had 2 weeks of gradually worsening shortness of breath. Last week he was unable to receive his usual chemotherapy infusion because of a low blood pressure reading at the clinic. Worse with ambulation. Reports chronic left lower extremity swelling, has already had a negative ultrasound per his tower climber. Denies orthopnea, paroxysmal nocturnal dyspnea. Review of Systems Constitutional: denies: Fever, Chills, Fatigue, Weight Loss Eyes: denies: Loss of vision, Discharge, Irritation Ears: denies: Loss of hearing, Ear pain, Drainage/discharge Nose: denies: Rhinorrhea / runny nose, Congestion Throat: denies: Dental pain / toothache, Sore throat, Swollen tonsils Cardiac: denies: Chest pain / pressure, Palpitations, Pedal edema, Calf pain Respiratory: reports: Dyspnea, Cough. denies: Hemoptysis, Wheezing GI: denies: Abdominal Pain, Constipation, Diarrhea : denies: Dysuria, Frequency Skin: denies: Rash, Lesions Musculoskeletal: denies: Neck pain, Back pain Neurologic: denies: Generalized weakness, Focal weakness, Numbness Immunocompromised: reports: Chemotherapy PD PAST MEDICAL HISTORY - Past Medical History Cardiovascular: High cholesterol, Coronary artery disease, Atrial fibrillation Respiratory: None Neuro: None Endocrine/Autoimmune: None GI: GERD, Hepatitis : None HEENT: None Psych: Depression Musculoskeletal: None Derm: None - Past Surgical History Past Surgical History: Yes Ortho: Other Cardiovascular: CABG Derm: Skin cancer surgery - Present Medications Home Medications: Ambulatory Orders Medication Instructions Recorded Confirmed Atorvastatin Calcium 40 mg PO QPM 09/11/13 07/31/21 Carbidopa/Levodopa 25/100 [Sinemet 1 tab PO BID 11/11/13 07/31/21 25 mg/100 mg] Finasteride 5 mg PO DAILY 11/11/13 07/31/21 Acyclovir [Zovirax] 400 mg PO BID 02/28/19 07/31/21 Esomeprazole Magnesium [Nexium] 40 mg PO DAILY 02/28/19 07/31/21 Multivitamin/Iron/Folic Acid 1 tab PO DAILY 02/28/19 07/31/21 [Centrum Adults Tablet] [place]-3/Dha/Epa/Fish Oil [Fish Oil 1,000 mg PO DAILY 02/28/19 07/31/21 1,000 mg Softgel] Ubidecarenone [Co Q-10] 300 mg PO DAILY 02/28/19 07/31/21 Tolterodine Tartrate [Detrol LA] 4 mg PO DAILY 10/20/19 07/31/21 Gabapentin 2 tab PO TID 12/11/19 07/31/21 Sulfamethox/Trimeth 800/160 1 each PO DAILY #90 tablet 11/11/20 07/31/21 [Bactrim Ds 800/160] Rivaroxaban [Xarelto] 1 tab PO DAILY 11/25/20 07/31/21 C,E,Zinc,Copper 11/Jqecp6i/Lut 1 cap PO DAILY 04/04/21 07/31/21 [Ocuvite Adult 50 Plus Softgel] Melatonin 2 tab PO QPM 04/04/21 07/31/21 Metoprolol Succinate [Toprol Xl] 1 tab PO BID 04/04/21 07/31/21 Carbidopa/Levodopa ER 50/200 1 tab PO QPM 07/31/21 07/31/21 [Sinemet Cr 50 mg/200 mg] - Allergies Allergies/Adverse Reactions: Allergies Allergy/AdvReac Type Severity Reaction Status Date / Time No Known Drug Allergies Allergy Verified 07/31/21 10:31 - Social History Does the pt smoke?: No Smoking Status: Never smoker Does the pt drink ETOH?: Yes Does the pt have substance abuse?: No - Immunizations Immunizations are current?: Yes Immunizations: TDAP >10years/unknown - POLST Patient has POLST: No PD ED PE NORMAL - General General: Alert and oriented X 3, No acute distress, Other (appears chronically unwell) - HEENT HEENT: Atraumatic, PERRL, EOMI - Neck Neck: Supple, no meningeal sign, No JVD, No bruit - Cardiac Cardiac: RRR, No murmur - Respiratory Respiratory: Other (Faint inspiratory crackles, speaking in complete sentences, coughing) - Abdomen Abdomen: Normal bowel sounds, Non tender - Back Back: No CVA TTP, No spinal TTP - Derm Derm: Other (Bruising over L flank, no tenderness, no crepitus) - Extremities Extremities: No deformity, Other (trace pitting edema to ankles) - Neuro Neuro: Alert and oriented X 3, clinical appeals reviewer 2-12 intact, No motor deficit, No sensory deficit - Psych Psych: Normal mood, Normal affect Results - Vitals Vitals: Vital Signs - 24 hr 07/31/21 07/31/21 07/31/21 10:31 10:39 11:03 Temperature 36.5 C Heart Rate 70 69 71 Respiratory 19 12 18 Rate Blood Pressure 97/59 L 134/65 H 140/74 H O2 Saturation 94 99 100 07/31/21 07/31/21 07/31/21 11:20 11:30 12:00 Temperature Heart Rate 71 71 90 Respiratory 19 15 18 Rate Blood Pressure 140/74 H 109/67 145/90 H O2 Saturation 100 99 100 07/31/21 07/31/21 12:30 14:08 Temperature Heart Rate 91 69 Respiratory 18 13 Rate Blood Pressure 150/112 H 105/68 O2 Saturation 99 99 Oxygen O2 Source Room air - EKG (time done) 1033 Rate: Rate (enter#) (70) Rhythm: Paced [place]: Normal Ischemia: Normal ST segments - Labs Labs: Laboratory Tests 07/31/21 07/31/21 07/31/21 10:35 10:35 10:35 WBC 1.5 L* RBC 2.33 L Hgb 9.2 L Hct 27.7 L MCV 118.9 H MCH 39.5 H MCHC 33.2 RDW 18.1 H Plt Count 51 L MPV 9.7 Neut # (Auto) 0.6 L Lymph # (Auto) 0.8 L [place] # (Auto) 0.1 Eos # (Auto) 0.1 Baso # (Auto) 0.0 Absolute Nucleated RBC 0.00 Band Neuts % (Manual) Not Reportable Abnorm Lymph % (Manual) Not Reportable Nucleated RBC % 0.0 Neutrophils # (Manual) Not Reportable Lymphocytes # (Manual) Not Reportable Monocytes # (Manual) Not Reportable Eosinophils # (Manual) Not Reportable Basophils # (Manual) Not Reportable Differential Comment MANUAL=AUTO DIFF Manual Slide Review Indicated WBC Morphology NORMAL APPEARANCE Platelet Estimate DECREASED (<130,000) Platelet Morphology NORMAL APPEARANCE RBC Morph Micro Appear 2+ MACROCYTOSIS Sodium 137 Potassium 4.2 Chloride 102 Carbon Dioxide 30 Anion Gap 5.0 L BUN 18 Creatinine 0.9 Estimated GFR (MDRD) 81 L Glucose 97 Lactic Acid Calcium 8.9 Total Bilirubin 1.8 H AST 16 ALT < 10 L Alkaline Phosphatase 44 Troponin I High Sens 11.1 B-Natriuretic Peptide Total Protein 6.7 Albumin 4.0 Globulin 2.7 Albumin/Globulin Ratio 1.5 Urine Color Urine Clarity Urine pH Ur Specific [place] Urine Protein Urine Glucose (UA) Urine Ketones Urine Occult Blood Urine Nitrite Urine Bilirubin Urine Urobilinogen Ur Leukocyte Esterase Urine RBC Urine WBC Ur Squamous Epith Cells Urine Bacteria Urine Culture Comments Nasal Adenovirus (PCR) Nasal B. parapertussis DNA (PCR) Nasal Coronavir 229E PCR Nasal Coronavir HKU1 PCR Nasal Coronavir NL63 PCR Nasal Coronavir OC43 PCR Nasal Enterovir/Rhinovir PCR Nasal Influenza B PCR Nasal Influenza A PCR Nasal Parainfluen 1 PCR Nasal Parainfluen 2 PCR Nasal Parainfluen 3 PCR Nasal Parainfluen 4 PCR Nasal RSV (PCR) Nasal B.pertussis DNA PCR Nasal C.pneumoniae (PCR) [place] Human Metapneumo PCR Nasal M.pneumoniae (PCR) Nasal SARS-CoV-2 (PCR) Blood Type Antibody Screen 07/31/21 07/31/21 07/31/21 10:35 10:45 10:56 WBC RBC Hgb Hct MCV MCH MCHC RDW Plt Count MPV Neut # (Auto) Lymph # (Auto) [place] # (Auto) Eos # (Auto) Baso # (Auto) Absolute Nucleated RBC Band Neuts % (Manual) Abnorm Lymph % (Manual) Nucleated RBC % Neutrophils # (Manual) Lymphocytes # (Manual) Monocytes # (Manual) Eosinophils # (Manual) Basophils # (Manual) Differential Comment Manual Slide Review WBC Morphology Platelet Estimate Platelet Morphology RBC Morph Micro Appear Sodium Potassium Chloride Carbon Dioxide Anion Gap BUN Creatinine Estimated GFR (MDRD) Glucose Lactic Acid 1.2 Calcium Total Bilirubin AST ALT Alkaline Phosphatase Troponin I High Sens B-Natriuretic Peptide 589 H Total Protein Albumin Globulin Albumin/Globulin Ratio Urine Color Urine Clarity Urine pH Ur Specific [place] Urine Protein Urine Glucose (UA) Urine Ketones Urine Occult Blood Urine Nitrite Urine Bilirubin Urine Urobilinogen Ur Leukocyte Esterase Urine RBC Urine WBC Ur Squamous Epith Cells Urine Bacteria Urine Culture Comments Nasal Adenovirus (PCR) Nasal B. parapertussis DNA (PCR) Nasal Coronavir 229E PCR Nasal Coronavir HKU1 PCR Nasal Coronavir NL63 PCR Nasal Coronavir OC43 PCR Nasal Enterovir/Rhinovir PCR Nasal Influenza B PCR Nasal Influenza A PCR Nasal Parainfluen 1 PCR Nasal Parainfluen 2 PCR Nasal Parainfluen 3 PCR Nasal Parainfluen 4 PCR Nasal RSV (PCR) Nasal B.pertussis DNA PCR Nasal C.pneumoniae (PCR) [place] Human Metapneumo PCR Nasal M.pneumoniae (PCR) Nasal SARS-CoV-2 (PCR) Blood Type O POSITIVE Antibody Screen NEGATIVE 07/31/21 07/31/21 07/31/21 11:19 12:50 13:45 WBC RBC Hgb Hct MCV MCH MCHC RDW Plt Count MPV Neut # (Auto) Lymph # (Auto) [place] # (Auto) Eos # (Auto) Baso # (Auto) Absolute Nucleated RBC Band Neuts % (Manual) Abnorm Lymph % (Manual) Nucleated RBC % Neutrophils # (Manual) Lymphocytes # (Manual) Monocytes # (Manual) Eosinophils # (Manual) Basophils # (Manual) Differential Comment Manual Slide Review WBC Morphology Platelet Estimate Platelet Morphology RBC Morph Micro Appear Sodium Potassium Chloride Carbon Dioxide Anion Gap BUN Creatinine Estimated GFR (MDRD) Glucose Lactic Acid Calcium Total Bilirubin AST ALT Alkaline Phosphatase Troponin I High Sens 9.8 B-Natriuretic Peptide Total Protein Albumin Globulin Albumin/Globulin Ratio Urine Color YELLOW Urine Clarity CLEAR Urine pH 6.5 Ur Specific [place] 1.010 Urine Protein NEGATIVE Urine Glucose (UA) NEGATIVE Urine Ketones NEGATIVE Urine Occult Blood NEGATIVE Urine Nitrite NEGATIVE Urine Bilirubin NEGATIVE Urine Urobilinogen 1 (NORMAL) Ur Leukocyte Esterase NEGATIVE Urine RBC 0-5 Urine WBC 0-3 Ur Squamous Epith Cells RARE Squamous Urine Bacteria None Seen Urine Culture Comments NOT INDICATED Nasal Adenovirus (PCR) NOT DETECTED Nasal B. parapertussis DNA (PCR) NOT DETECTED Nasal Coronavir 229E PCR NOT DETECTED Nasal Coronavir HKU1 PCR NOT DETECTED Nasal Coronavir NL63 PCR NOT DETECTED Nasal Coronavir OC43 PCR NOT DETECTED Nasal Enterovir/Rhinovir PCR NOT DETECTED Nasal Influenza B PCR NOT DETECTED Nasal Influenza A PCR NOT DETECTED Nasal Parainfluen 1 PCR NOT DETECTED Nasal Parainfluen 2 PCR NOT DETECTED Nasal Parainfluen 3 PCR NOT DETECTED Nasal Parainfluen 4 PCR NOT DETECTED Nasal RSV (PCR) NOT DETECTED Nasal B.pertussis DNA PCR NOT DETECTED Nasal C.pneumoniae (PCR) NOT DETECTED [place] Human Metapneumo PCR NOT DETECTED Nasal M.pneumoniae (PCR) NOT DETECTED Nasal SARS-CoV-2 (PCR) NOT DETECTED Blood Type Antibody Screen PD MEDICAL DECISION MAKING - ED course ED course: Patient is a chronically unwell appearing gentleman with numerous chronic medical problems. Reports several weeks of gradually worsening shortness of breath, however saturating 99% on room air. Lungs appear clear to auscultation bilaterally. Given patient's history of cancer with immune deficiency will empirically cover for sepsis with IV antibiotics. Patient denies history of congestive heart failure, will administer dose of fluids. Chest x-ray shows bilateral reticular infiltrates. BNP is elevated. Will obtain CT of the chest and will order respiratory panel. We are in the middle of a contrast shortage and CT will be obtained noncontrast. CT shows new bilateral pulmonary edema with chronic fibrotic changes of the lungs. With elevated BNP suspect that patient has new onset congestive heart failure. Fluids stopped, will actually give Lasix to take fluids off. Plan to admit. Discussed patient with Dr. Saravia, who requested admit and echo. Departure - Departure Disposition: 66 [facility] DC/Xfer Clinical Impression: Congestive heart failure Qualifiers: Heart failure type: unspecified Heart failure chronicity: acute Qualified Code(s): I50.9 - Heart failure, unspecified Anemia Qualifiers: Bone marrow failure anemia type: unspecified bone marrow failure Leukopenia Qualifiers: Leukopenia type: neutropenia Neutropenia type: secondary to cancer chemotherapy Qualified Code(s): D70.1 - Agranulocytosis secondary to cancer chemotherapy; T45.1X5A - Adverse effect of antineoplastic and immunosuppressive drugs, initial encounter Condition: Good Instructions: Heart Failure Dc, ED CHF General Follow-Up: Siva Saravia MD [Physician No Access] - Comments: FOLLOW UP WITH DR. SARAVIA'S OFFICE IN [facility] ON 08/04 AT 2:20 (CHECKIN AT 2:10)
[2021-07-31 11:30] LABS: DIFFERENTIAL COMMENT MANUAL=AUTO DIFF; PLATELET ESTIMATE, MANUAL DECREASED (<130,000) (NORMAL); PLATELET MORPHOLOGY NORMAL APPEARANCE (NORMAL); RBC MORPHOLOGY (MULTIPLE) 2+ MACROCYTOSIS (NORMAL); WBC MORPHOLOGY (MULTIPLE) NORMAL APPEARANCE (NORMAL)
--- NOTE | 2021-07-31 12:04 | CT Report ---
PROCEDURE: CHEST WO INDICATIONS: DYSPNEA, ABN CXR TECHNIQUE: Noncontrast 1mm axial images were acquired from the pulmonary apices to the posterior costophrenic an gles. Axial 5 mm soft tissue kernel reconstructions were performed as well as 8 mm axial MIP and cor onal and sagittal 5 mm reformations. For radiation dose reduction, the following was used: automate d exposure control, adjustment of mA and/or kV according to patient size. COMPARISON: Chest x-ray 07/31/2021, CT chest 03/17/2021 FINDINGS: Image quality: Excellent. Lungs and pleura: Mild right and minimal left pleural effusions are present. There is scarring and fi brotic change predominantly within the lower lobes in the peripheral aspect similar compared to prior exam. Bronchiectasis remains present within the bases bilaterally. Tree-in-bud nodular opacities rem ain persistent in the peripheral aspect of the lower lobes as well as right middle lobe and lingula. Previously identified right lower lobe nodule is not visualized, also accounting for overlying effusi on within the region. There is slight appearance of increased pulmonary vascularity. Mediastinum: Heart size is enlarged. No pericardial effusion. No mediastinal adenopathy by size cri teria. Descending thoracic aorta remains prominent measuring approximately 4.2 cm. Esophagus is yolsi l in caliber. No hiatal hernia. Bones and chest wall: No suspicious bony lesions. No vertebral body compression fractures. No axil christa or supraclavicular adenopathy by size criteria. The thyroid is normal in size and there are no incidental findings. Abdomen: Visualized upper abdominal solid organs and bowel loops appear normal in the absence of con trast. IMPRESSION: Persistent appearance of chronic interstitial scarring and fibrotic changes as above. Persistent appearance of tree-in-bud nodular opacities suggestive of infection/inflammation. Atypical infection such as fungal and mycobacterial should be considered as appropriate. Cardiomegaly and slight appearance of increased pulmonary vascularity as well as effusions are sugges tive of edema. CLINICAL RECOMMENDATION STATEMENTS: In patients <35 years with an ITN detected on CT, MRI, or extrathyroidal ultrasound, the Committee re commends further evaluation with dedicated thyroid ultrasound if the nodule is "e1 cm and has no susp icious imaging features, and if the patient has normal life expectancy. In patients "e35 years with an ITN detected on CT, MRI, or extrathyroidal ultrasound, the Committee r ecommends further evaluation with dedicated thyroid ultrasound if the nodule is "e1.5 cm and has no s uspicious imaging features, and if the patient has normal life expectancy. (ACR, 2014) Reviewed by: Lien Kilpatrick MD on 07/31/2021 12:03 PM PDT Approved by: Lien Kilpatrick MD on 07/31/2021 12:03 PM PDT Station ID: [id number]
[2021-07-31] MEDS ORDERED: FUROSEMIDE 40 MG/4 ML VIAL IVP STA (12:30)
[2021-07-31 12:35] LABS: B. PARAPERTUSSIS- RESP PCR PAN NOT DETECTED; B. PERTUSSIS- RESP PCR PANEL NOT DETECTED; C. PNEUMONIAE- RESP PCR PANEL NOT DETECTED; CORONAVIRUS 229E-RESP PCR NOT DETECTED; CORONAVIRUS HKU1-RESP PCR NOT DETECTED; CORONAVIRUS NL63-RESP PCR NOT DETECTED; CORONAVIRUS OC43-RESP PCR NOT DETECTED; HUMAN METAPNEUMOVIRUS NOT DETECTED; INFLUENZA A- RESP PCR PANEL NOT DETECTED; INFLUENZA B - RESP PCR PANEL NOT DETECTED; M. PNEUMONIAE- RESP PCR PANEL NOT DETECTED; PARAINFLUENZA VIRUS 1 NOT DETECTED; PARAINFLUENZA VIRUS 2 NOT DETECTED; PARAINFLUENZA VIRUS 3 NOT DETECTED; PARAINFLUENZA VIRUS 4 NOT DETECTED; RHINOVIRUS/ENTEROVIRUS NOT DETECTED; RSV- RESP PCR PANEL NOT DETECTED; SARS-CoV-2 -RESP PCR PANEL NOT DETECTED
[2021-07-31 12:57] LABS: BILIRUBIN,URINE NEGATIVE (NEGATIVE); GLUCOSE, URINE (UA) NEGATIVE (NEGATIVE); KETONES,URINE (UA) NEGATIVE (NEGATIVE); LEUKOCYTE ESTERASE, URINE NEGATIVE (NEGATIVE); NITRITE,URINE NEGATIVE (NEGATIVE); OCCULT BLOOD,URINE NEGATIVE (NEGATIVE); PH,URINE 6.5 PH (5.0-7.5); PROTEIN,URINE NEGATIVE (NEGATIVE); UROBILINOGEN,URINE 1 (NORMAL) E.U./dL (NORMAL)
[2021-07-31 13:05] LABS: CLARITY,URINE CLEAR (CLEAR)
[2021-07-31 13:06] LABS: BACTERIA,URINE None Seen /HPF (None Seen); RBC,URINE 0-5 /HPF (0-5); SQUAMOUS EPITHELIAL CELL,UR RARE Squamous (<= Few); WBC,URINE 0-3 /HPF (0-3)
[2021-07-31] MEDS ORDERED: ACETAMINOPHEN 325 MG TABLET PO PRN (14:57)
[2021-07-31] MEDS ORDERED: SODIUM CHLORIDE FLUSH 0.9% 10 ML SYRINGE IVP PRN (14:57)
--- NOTE | 2021-07-31 15:16 | HISTORY & PHYSICAL EXAMINATION ---
Chief Complaint - Chief Complaint Chief Complaint: SOB History of Present Illness - Admitted From Admitted From:: ED - History Obtained From History obtained from: ED provider and the patient - History of Present Illness HPI Comment/Other: This is an 80-year-old white male with a history of Restless leg syndrome for which his neurologist has him on Sinemet and gabapentin, Hx ofmyelodysplastic syndrome on weekly chemotherapy, followed by Dr Dc at [facility], and has pa ncytopenia. Has a history of CAD, status post CABG in 2012, Afib on Xarelto, has an AICD placed 01/2020 and is followed by Dr. Conti of Cardiology but changing to Dr Alex. The patient presented to the ED complaining of 2 weeks of progressively worsening shortness of breath with activity. Occasionally if he has severe shortness of breath, he also develops chest pressure that can last 3 to 4 min utes. He has never been prescribed sublingual nitroglycerin for this. He also describes 2 weeks of ankle edema and has never been prescribed Lasix. He had a low blood pressure today and called his Manager Managing who told him to be evaluated in the ER. He called EMS but declined to be brought to the ED by the ambulance. He drove himself into the ED. Blood pressure in the ER is 100-130 systolic. He was described as appearing chronically ill. He is ventricular paced on telemetry. Bibasilar rales were audible and he has BNP of 500. Chest x-ray showed "reticular changes" and he underwent a CT of the chest. This shows new pleural effusions, interstial lung changes and parenchymal changes consist ent with CHF and also "tree in bud" changes consistent with atypical pneumonia. His O2 saturation is 99% at rest on room air. The ED provider called his Manager Managing who advised that the patient be hospitalized for new onset of CHF. The Hospitalist team was contacted. We discussed his CODE BLUE wishes and he wants to be a Full Code. History - Past Medical History Cardiovascular: reports: High cholesterol, Coronary artery disease, Atrial fibrillation, Other (AICD) Neuro: reports: Other (RLS) Endocrine/Autoimmune: reports: None GI: reports: GERD, Hepatitis : reports: None HEENT: reports: None Psych: reports: Depression Musculoskeletal: reports: None Derm: reports: None MRSA Hx?: No Other Past Medical History: Myelodysplastic syndrome, gets chemotherapy weekly, is pancytopenic - Past Surgical History Ortho: reports: Other Cardiovascular: reports: CABG, AICD Derm: reports: Skin cancer surgery - Family & Social History Family History: Mother: , Father: Family History Comment/Other: His father had Parkinson's disease or RLS Living arrangement: At home Living Situation: With spouse/s.o. 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 Now he reads all day. He exercises by walking around his property for about 2 miles every day. He is a non-smoker, quit 34 years ago. He drinks nearly no alcohol, 1 drink per week. - Substance History Use: Uses substance without health or social issues: NONE - POLST Patient has POLST: No Meds/Allgy - Home Medications Home Medications: Ambulatory Orders Medication Instructions Recorded Confirmed Atorvastatin Calcium 40 mg PO QPM 09/11/13 07/31/21 Carbidopa/Levodopa 25/100 [Sinemet 1 tab PO BID 11/11/13 07/31/21 25 mg/100 mg] Finasteride 5 mg PO DAILY 11/11/13 07/31/21 Acyclovir [Zovirax] 400 mg PO BID 02/28/19 07/31/21 Esomeprazole Magnesium [Nexium] 40 mg PO DAILY 02/28/19 07/31/21 Multivitamin/Iron/Folic Acid 1 tab PO DAILY 02/28/19 07/31/21 [Centrum Adults Tablet] [place]-3/Dha/Epa/Fish Oil [Fish Oil 1,000 mg PO DAILY 02/28/19 07/31/21 1,000 mg Softgel] Ubidecarenone [Co Q-10] 300 mg PO DAILY 02/28/19 07/31/21 Tolterodine Tartrate [Detrol LA] 4 mg PO DAILY 10/20/19 07/31/21 Gabapentin 2 tab PO TID 12/11/19 07/31/21 Sulfamethox/Trimeth 800/160 1 each PO DAILY #90 tablet 11/11/20 07/31/21 [Bactrim Ds 800/160] Rivaroxaban [Xarelto] 1 tab PO DAILY 11/25/20 07/31/21 C,E,Zinc,Copper 11/Zyuco6i/Lut 1 cap PO DAILY 04/04/21 07/31/21 [Ocuvite Adult 50 Plus Softgel] Melatonin 2 tab PO QPM 04/04/21 07/31/21 Metoprolol Succinate [Toprol Xl] 1 tab PO BID 04/04/21 07/31/21 Carbidopa/Levodopa ER 50/200 1 tab PO QPM 07/31/21 07/31/21 [Sinemet Cr 50 mg/200 mg] - Allergies Allergies/Adverse Reactions: Allergies Allergy/AdvReac Type Severity Reaction Status Date / Time No Known Drug Allergies Allergy Verified 07/31/21 10:31 Review of Systems - Cardiovascular Cariovascular: reports: Chest pain, Edema, Exertional dyspnea - Respiratory Respiratory: reports: Cough (Cannot bring up the sputum) - Integumentary Integumentary: reports: Other (He noticed a large bruise, 1 week ago, in the left posterior subcostal area and remembers no trauma whatsoever.) - Neurological Neurological: reports: Other (RLS sx are controlled on Sinemet and Gabapentin) - All Other Systems All Other Systems: reports: Reviewed and negative Exam - Vital Signs Vital Signs: Vital Signs x48h Temp Pulse Resp BP Pulse Ox 07/31/21 14:08 69 13 105/68 99 07/31/21 12:30 91 18 150/112 H 99 07/31/21 12:00 90 18 145/90 H 100 07/31/21 11:30 71 15 109/67 99 07/31/21 11:20 71 19 140/74 H 100 07/31/21 11:03 71 18 140/74 H 100 07/31/21 10:39 69 12 134/65 H 99 07/31/21 10:31 36.5 C 70 19 97/59 L 94 - Physical Exam General Appearance: positive: No acute distress, Alert, Other (Pale. Male pat tern baldness.) Eyes Bilateral: positive: Normal inspection, EOMI, Other (Wearing glasses) Neck: positive: Nml inspection, Thyroid nml, No JVD Respiratory: positive: No respiratory distress, Breath sounds nml (anteriorly) Cardiovascular: positive: Regular rate & rhythm, No murmur Abdomen: positive: Non-tender, Nml bowel sounds, No distention Skin: positive: Warm, Dry, Pallor Extremities: positive: Non-tender, Other (Trace-1+ ankle edema) Neurologic/Psychiatric: positive: Oriented x3 (Grossly non-focal) Conclusion/Plan - Problem List (1) Acute exacerbation of CHF (congestive heart failure) Conclusion/Plan: The chest x-ray and CT reported CHF and his BNP is moderately elevated at 500. Patient cannot remember when he last had an echocardiogram. Will begin IV diuretics twice daily, follow I's and O's, daily weights. Will order an Echocardiogram to evaluate his LVEF. His troponins are normal, ruling him out for an acute coronary event. According to the patient, he was told he has an appointment with his new ca rdiologist, Dr. Alex, on 08/04/[address] Alex wanted him hospitalized for diuresis. Qualifiers: Heart failure type: unspecified Qualified Code(s): I50.9 - Heart failure, unspecified (2) Angina of effort Conclusion/Plan: Patient gives a typical description of angina with activity, new over the last 2 weeks. He does have a history of CAD and CABGs. He cannot remember when his last stress test was. He also does not know his LVEF or remember when he last had an Echo. He has had 2 normal troponins, ruling him out for an acute coronary event. Will not order aspirin due to very low platelets and evidence of bleeding (ecchymosis present, see below) Will continue his Metoprolol and statin and start sublingual nitroglycerin as needed. He will be discharged on new sublingual nitroglycerin prn and instructed in its use. (3) ILD (interstitial lung disease) Conclusion/Plan: His CT scan was read as him having interstitial lung disease. Patient does not recognize this term and does not think he was diagnosed with this in the past. The description was also suggestive of either an atypical pneumonia, as in fungal or with TB. Will order him a sputum culture for fungus and sputum to check for AFB. Will order airborne isolation until TB result is known. Will give supplemental oxygen if needed to keep saturations greater than 90%. Currently his sats are >95% on room air. (4) Afib Conclusion/Plan: Patient is ventricular paced therefore has a regular rate. On telemetry, the underlying atrial rhythm is A. fib. We will continue his Xarelto and his Metoprolol (5) Hx of coronary artery disease Conclusion/Plan: As per Hx. He had a CABG in 2012. His troponins were unremarkable, ruling out acute (recent) [place] as the cause of the CHF, however, his symptoms started 2 weeks ago. Will not order aspirin since his plt count is very low and he is already on an anticoagulant and currently has a large ecchymosis Will continue his metoprolol and statin and start prn sublingual nitroglycerin. He will be discharged on new sublingual nitroglycerin prn and instructed in its use. (6) AICD (automatic cardioverter/defibrillator) present Conclusion/Plan: Patient denies ever having a cardiac arrest as the reason for the AICD implant, therefore it is presumed that he already has a known depressed ejection fraction and the AICD was implanted prophylactically. His (new) cmm inspector told the ER that the pt has never had systolic heart failure before. Patient cannot remember ever having an Echocardiogram however. Will order an Echocardiogram to check EF. The patient says his defibrillator was checked several months ago and has 7-1/2 years of battery life left Will place the patient on telemetry to watch for lethal arrhythmias. (7) Myelodysplastic syndrome Conclusion/Plan: The patient gets chemotherapy once a week. He says he knows to stay away from crowds because he is immunosuppressed. This gives him pancytopenia therefore we will order neutropenic precautions (8) Pancytopenia Conclusion/Plan: The white blood count is 1.5. We will order neutropenic precautions. The hemoglobin is low at 9.2 and could also be adding to his shortness of breath. We will follow his CBC daily and transfuse if hemoglobin goes under 7 The patient has a large ecchymosis in the left posterior subcostal area and remembers no trauma. He has very low platelets which probably caused this problem, in addition to being on Xarelto. Will watch that the ecchymotic area does not expand (9) Restless leg syndrome Conclusion/Plan: We will continue his usual Sinemet and Gabapentin doses which is neurologist has ordered for his RLS (10) Ecchymosis Conclusion/Plan: The patient has a very large ecchymotic area in the posterior left sudcostal angle area, it measures approximately 10 cm vertically x 30 cm horizontally and spread to under his L axilla. He has very low platelets which probably caused this problem, in addition to being on Xarelto. Will watch that the ecchymotic area does not expand Follow the hemoglobin daily, if it is falling, he may be still oozing into this area. - Lab Results Fish Bones: 08/01/21 04:25 08/01/21 04:25 - Diagnostic Imaging Results Diagnostic Imaging Results: positive: Final report reviewed
[2021-07-31] MEDS: SODIUM CHLORIDE FLUSH 0.9% 10 ML SYRINGE IVP SCH ×2 (18:52→21:04)
[2021-07-31] MEDS ORDERED: CARBIDOPA/LEVODOPA ER 50 MG/200 MG TABLET PO SCH (21:00)
[2021-07-31] MEDS ORDERED: MELATONIN 1 MG PO SCH (21:00)
[2021-07-31] MEDS ORDERED: ATORVASTATIN 40 MG TABLET PO SCH (21:00)
[2021-07-31] MEDS: ACYCLOVIR 200 MG CAPSULE PO SCH (21:04)
[2021-07-31] MEDS: CARBIDOPA/LEVODOPA 25 MG/100 MG TABLET PO SCH (21:04)
[2021-07-31] MEDS: METOPROLOL SUCCINATE 25 MG TABLET PO SCH (21:04)
[2021-07-31] MEDS: GABAPENTIN 100 MG CAPSULE PO SCH (21:04)
[2021-08-01 05:30] LABS: BASOPHILS % (AUTO) 1.3 %; EOSINOPHILS % (AUTO) 3.2 %; HCT - HEMATOCRIT 24.4 % (42.0-52.0); HGB - HEMOGLOBIN 8.2 g/dL (14.0-18.0); LYMPHOCYTES % (AUTO) 58.2 %; MEAN CORPUSCULAR HEMOGLOBIN 39.8 pg (27.0-31.0); MEAN CORPUSCULAR HGB CONC 33.6 g/dL (32.0-36.0); MEAN CORPUSCULAR VOLUME 118.4 fL (80.0-94.0); MEAN PLATELET VOLUME 11.1 fL (7.4-11.4); MONOCYTES % (AUTO) 2.5 %; NEUTROPHILS % (AUTO) 34.8 %; PLT - PLATELET COUNT 44 10^3/uL (130-450); RED BLOOD COUNT 2.06 10^6/uL (4.70-6.10)
[2021-08-01 05:34] LABS: CALCIUM 8.5 mg/dL (8.5-10.3); CREATININE 0.7 mg/dL (0.6-1.2); POTASSIUM 3.8 mmol/L (3.5-5.0)
[2021-08-01 05:39] LABS: WHITE BLOOD COUNT 1.6 x10^3/uL (4.8-10.8)
[2021-08-01 05:40] LABS: ABNORMAL LYMPHS % (MANUAL) 0 %; BAND NEUTROPHILS % (MANUAL) 0 %
[2021-08-01 06:12] LABS: DIFFERENTIAL COMMENT MANUAL DIFFERENTIAL; LYMPHOCYTES # (MANUAL) 0.7 10^3/uL (1.5-3.5); LYMPHOCYTES % (MANUAL) 44 %; NEUTROPHILS # (MANUAL) 0.9 10^3/uL (1.5-6.6); PLATELET ESTIMATE, MANUAL NORMAL (130-450,000) (NORMAL); RBC MORPHOLOGY (MULTIPLE) NORMAL APPEARANCE (NORMAL)
[2021-08-01] MEDS: FUROSEMIDE 20 MG/2 ML VIAL IVP SCH ×2 (06:18→14:44)
[2021-08-01] MEDS: GABAPENTIN 100 MG CAPSULE PO SCH ×2 (06:20→14:44)
[2021-08-01] MEDS: PANTOPRAZOLE 40 MG TABLET PO SCH ×2 (06:21→08:53)
[2021-08-01] MEDS: ACYCLOVIR 200 MG CAPSULE PO SCH (08:52)
[2021-08-01] MEDS: SODIUM CHLORIDE FLUSH 0.9% 10 ML SYRINGE IVP SCH (08:53)
[2021-08-01] MEDS: METOPROLOL SUCCINATE 25 MG TABLET PO SCH (08:53)
[2021-08-01] MEDS: CARBIDOPA/LEVODOPA 25 MG/100 MG TABLET PO SCH (08:53)
[2021-08-01] MEDS ORDERED: FINASTERIDE 5 MG TABLET PO SCH (09:00)
[2021-08-01] MEDS ORDERED: TOLTERODINE LA 2 MG CAPSULE PO SCH (09:00)
[2021-08-01] MEDS ORDERED: SULFAMETH/TRIMETH DS 800/160 MG TABLET PO SCH (09:00)
--- NOTE | 2021-08-01 12:02 | PHARMACY PROGRESS NOTE ---
- Best Possible Medication History Admit Date and Time: 07/31/21 1455 Processed by: Pharmacy Medication History completed: Yes Patient Interview: Completed Secondary Source(s): Insurance records As the person ultimately responsible for medication therapy, providers are able to order a medication from an existing home medication list in [facility] via the "Reconcile Routine" prior to Confirmation of that medication by decision support manager. Such practice is discouraged except when the physician, in their clinical judgment, deems that a medical need exists for a medication without regard to previous use.
--- NOTE | 2021-08-01 13:05 | Discharge Plan ---
Discharge Plan Problem Reviewed?: Yes Disposition: Home, Self Care Condition: Fair Prescriptions: Nitroglycerin [Nitrostat] 0.4 mg SL Q5MIN PRN #100 tablet PRN Reason: Chest Pain Furosemide [Lasix] 20 mg PO DAILY #30 tablet Diet: Low Sodium Activity Restrictions: Activity as Tolerated Shower Restrictions: No Instruction Topics: Heart Failure Dc, ED CHF General Health Concerns: You were hospitalized to get IV diuretics to help "dry you out". You have had good urine output and eliminated alot of fluid. The Echocardiogram could not be done while you were here, since the patient services technician only works Wednesdays and . You are being discharged home on 2 new medications: Lasix, which is a water pill for you to take daily, and Nitroglycerin to use under your tongue, when you get that chest pressure. Because your blood pressure does run low, the dose of your Metoprolol should now be lower. Please follow the new list of medications and take them as proscribed and show the list at your Wed appointment with Dr Saravia. All new prescriptions were electronically sent to your [facility] pharmacy in [place]. Please do not take the 2 mile walks daily. You should only be walking within the house until you see your Lead Technologist In Cytogenetics this Wednesday. Please decrease the intake of salt in your diet, which has caused some of this fluid buildup. Your sputum sample tests were sent out, they were ordered to see if you have tuberculosis or fungus infection in your lungs. These results are not back yet. Either your primary care provider or possibly your military technology specialist should get these and give you appropriate treatment if needed. Plan of Treatment: As above. Please continue to follow precautions to not catch an infection, because of your continued low immunization status from chemotherapy. Care Goals: Improvement in symptoms and stabilization are the goals. Assessment: These instructions are provided as a reminder for you after discharge. Additional Instructions or Follow Up instructions: FOLLOW UP WITH DR. SARAVIA'S OFFICE IN [facility] ON 08/04/21 AT 2:20 (CHECK IN AT 2:10) No Smoking: If you smoke, Please STOP! Call for help. Follow-up with: Siva Saravia MD [Physician No Access] -
[2021-08-01] MEDS ORDERED: RIVAROXABAN 10 MG TABLET PO SCH (16:00)
--- NOTE | 2021-08-01 17:05 | DISCHARGE SUMMARY ---
Discharge Summary Admit Date: 07/31/21 Discharge Date: 08/01/21 Discharging Provider: Dr Rose Mary Dugan Primary Care Provider: Dr Burkett (PCP), Dr Alex (Communications Controller) Code Status: Attempt Resuscitation Condition at Discharge: Fair Discharge Disposition: 01 Home, Self Care - HPI History of Present Illness: This is an 80-year-old white male with a history of Restless leg syndrome for which his neurologist has him on Sinemet and gabapentin, Hx of myelodysplastic syndrome on weekly chemotherapy, followed by Dr Dc at [facility], and has pancytopenia. Has a history of CAD, status post CABG in 2012, Afib on Xarelto, has an AICD placed 01/2020 and is followed by Dr. Conti of Cardiology but changing to Dr Alex. The patient presented to the ED complaining of 2 weeks of progressively worsening shortness of breath with activity. Occasionally if he has severe shortness of breath, he also develops chest pressure that can last 3 to 4 minutes. He has never been prescribed sublingual nitroglycerin for this. He also describes 2 weeks of ankle edema and has never been prescribed Lasix. He had a low blood pressure today and called his Communications Controller who told him to be evaluated in the ER. He called EMS but declined to be brought to the ED by the ambulance. He drove himself into the ED. Blood pressure in the ER is 100-130 systolic. He was described as appearing chronically ill. He is ventricular paced on telemetry. Bibasilar rales were audible and he has BNP of 589. Chest x-ray showed "reticular changes" and he underwent a CT of the chest. This shows new pleural effusions, interstial lung changes and parenchymal changes consistent with CHF and also "tree in bud" changes consistent with atypical pneumonia. His O2 saturation is 99% at rest on room air. The ED provider called his Communications Controller who advised that the patient be hospitalized for new onset of CHF. The Hospitalist team was contacted. We discussed his CODE BLUE wishes and he wants to be a Full Code. - HOSPITAL COURSE Hospital Course: (1) Acute exacerbation of CHF (congestive heart failure) I50.9 The chest x-ray and CT reported CHF and his BNP was moderately elevated at 500. He was treated with Lasix 20 mg iv bid. He had good diuresis and was (-) about 1L in fluid balance at discharge. He underwent an oximetry walk test and did not desaturate below 95% on room air with activity, so did not need oxygen ordered. We continued his metoprolol but the dose was decreased because he was hypotensive with systolics of 90-100. He was discharged on new Lasix 20 mg p.o. daily and advised to decrease Metoprolol Succinate from 25 mg po bid to 12.5 mg daily. He knows to see his new radiopharmacist in 4 days. An Echo was ordered however we do not have the inventory technician here on the day he was here. (2) Angina of effort Patient gave a typical description of angina with activity, new over the last 2 weeks. He cannot remember when his last stress test was. He also does not know his LVEF or remember when he last had an Echo. He has had 2 normal troponins, ruling him out for an acute coronary event. We continued the B-yina and statin and started sublingual nitroglycerin prn and he was discharged on this and was instructed in its use. (3) ILD (interstitial lung disease) His CT scan was read as him having interstitial lung disease. Patient did not think he was diagnosed with this in the past. The description was also suggestive of either an atypical pneumonia, as in fungal or with TB. We sent off sputum tests for fungus and for AFB. We ordered airborne isolation until the TB result was known, but there were no results by time of discharge. (4) Afib Patient is ventricular paced therefore has a regular rate. On telemetry, the underlying atrial rhythm is A. fib. We continued his Xarelto and decreased his Metoprolol (due to low BP, and he was still entirely paced. (5) Hx of coronary artery disease As per Hx. He had a CABG in 2012. His troponins were unremarkable, ruling out acute (recent) [place] as the cause of the CHF, however, his symptoms started 2 weeks ago. We did not order aspirin since his plt count is very low and he is already on an anticoagulant and currently has a large ecchymosis. He was sent home with a new prescription for prn sublingual nitroglycerin and instructed in its use. (6) AICD (automatic cardioverter/defibrillator) present Patient denies ever having a cardiac arrest as the reason for the AICD implant, therefore it is presumed that he already has a known depressed ejection fraction and the AICD was implanted prophylactically. An Echo was ordered to check his EF, however we do not have the inventory technician here on the day he was here. (7) Myelodysplastic syndrome The patient gets chemotherapy once a week. He says he knows to stay away from crowds because he is immunosuppressed. We ordered neutropenic precautions. (8) Pancytopenia The white blood count was 1.5, hemoglobin was 9.2 and could also be adding to his shortness of breath. The patient has a large ecchymosis (approx 10 cm height x 30 cm width) in the left posterior subcostal area and remembers no trauma. He has very low platelets which probably caused this problem, in addition to being on Xarelto. (9) Restless leg syndrome We continued his usual Sinemet and Gabapentin doses whichhe said is Neurologist ordered for his RLS (10) Ecchymosis The patient has a very large ecchymotic area in the posterior left sudcostal angle area, it measures approximately 10 cm vertically x 30 cm horizontally and spread to below his L axilla. He has very low platelets which probably caused this problem, in addition to being on Xarelto. The area remained the same and was not tender. - ALLERGIES Allergies/Adverse Reactions: Allergies Allergy/AdvReac Type Severity Reaction Status Date / Time No Known Drug Allergies Allergy Verified 07/31/21 10:31 - MEDICATIONS Home Medications: Ambulatory Orders Medication Instructions Recorded Confirmed Atorvastatin Calcium 40 mg PO QPM 09/11/13 07/31/21 Carbidopa/Levodopa 25/100 [Sinemet 1 tab PO BID 11/11/13 07/31/21 25 mg/100 mg] Finasteride 5 mg PO DAILY 11/11/13 07/31/21 Acyclovir [Zovirax] 400 mg PO BID 02/28/19 07/31/21 Esomeprazole Magnesium [Nexium] 40 mg PO DAILY 02/28/19 07/31/21 Multivitamin/Iron/Folic Acid 1 tab PO DAILY 02/28/19 07/31/21 [Centrum Adults Tablet] [place]-3/Dha/Epa/Fish Oil [Fish Oil 1,000 mg PO DAILY 02/28/19 07/31/21 1,000 mg Softgel] Ubidecarenone [Co Q-10] 300 mg PO DAILY 02/28/19 07/31/21 Tolterodine Tartrate [Detrol LA] 4 mg PO DAILY 10/20/19 07/31/21 Gabapentin 3 tab PO .3PM 12/11/19 08/01/21 Sulfamethox/Trimeth 800/160 1 each PO DAILY #90 tablet 11/11/20 07/31/21 [Bactrim Ds] Rivaroxaban [Xarelto] 1 tab PO DAILY 11/25/20 07/31/21 C,E,Zinc,Copper 11/Jiozg9i/Lut 1 cap PO DAILY 04/04/21 07/31/21 [Ocuvite Adult 50 Plus Softgel] Melatonin 2 tab PO QPM 04/04/21 07/31/21 Carbidopa/Levodopa ER 50/200 1 tab PO QPM 07/31/21 07/31/21 [Sinemet Cr 50 mg/200 mg] Furosemide [Lasix] 20 mg PO DAILY #30 tablet 08/01/21 Gabapentin [Neurontin] 200 mg PO HS 08/01/21 08/01/21 Metoprolol Succinate [Toprol Xl] 12.5 mg PO DAILY tablet 08/01/21 Nitroglycerin [Nitrostat] 0.4 mg SL Q5MIN PRN #100 tablet 08/01/21 - PHYSICAL EXAM AT DISCHARGE General Appearance: positive: No acute distress, Alert, Other (Pale. Male pattern baldness.) Eyes Bilateral: positive: Normal inspection, EOMI ENT: positive: ENT inspection nml, No signs of dehydration Neck: positive: Nml inspection, No JVD Respiratory: positive: No respiratory distress, Breath sounds nml Cardiovascular: positive: No murmur, Bradycardia Abdomen: positive: Non-tender, No distention Skin: positive: Warm, Dry, Pallor Extremities: positive: Non-tender, No pedal edema Neurologic/Psychiatric: positive: Oriented x3 (Non-focal, grossly.) - LABS Result Diagrams: 08/01/21 04:25 08/01/21 04:25 - DIAGNOSTIC IMAGING Diagnostic Imaging Results: Final report reviewed - FOLLOW UP Follow Up: See new Communications Controller in 3 days. - TIME SPENT Time Spent in Discharge (Minutes): 35
[2021-08-01] MEDS ORDERED: APIXABAN 5 MG TABLET PO SCH (17:30)
[2021-08-01 17:46] VITALS: BP 107/66
[2021-08-02] MEDS ORDERED: METOPROLOL SUCCINATE 25 MG TABLET PO SCH ×2 (09:00)
== END 2021-08-01 17:48 | disposition home or self-care (01) ==
LOC: ED 10:23 → MS3 14:57 → ICU 17:25
PROVIDERS: ADMIT Internal Medicine; ATTEND Internal Medicine
DX: I50.9 Heart failure, unspecified (principal); T45.1X5A Adverse effect of antineoplastic and immunosuppressive drugs, initial encounter; D70.1 Agranulocytosis secondary to cancer chemotherapy; D46.9 Myelodysplastic syndrome, unspecified; G25.81 Restless legs syndrome; D61.818 Other pancytopenia; I20.8 Other forms of angina pectoris; J84.9 Interstitial pulmonary disease, unspecified; I48.91 Unspecified atrial fibrillation; Z79.01 Long term (current) use of anticoagulants; Z95.1 Presence of aortocoronary bypass graft; R58 Hemorrhage, not elsewhere classified; Z79.899 Other long term (current) drug therapy; Z95.810 Presence of automatic (implantable) cardiac defibrillator; K21.9 Gastro-esophageal reflux disease without esophagitis; Z87.891 Personal history of nicotine dependence; Z20.822 Contact with and (suspected) exposure to COVID-19
CPT/HCPCS: 36415; 71045; 71250; 80048; 80053; 81001; 81599; 83605; 83880; 84484; 85025; 86850; 86900; 86901; 87040; 87633; 94761; 96361; 96365; 96375; 96376; 99284; 99285; A9270; G0378; J3370; 87070; 87086; 87205; 93005

== ENCOUNTER 2021-11-04 10:48 | Inpatient (IN) | payer MEDICARE, OTHER ==
--- OUTSIDE RECORDS SUMMARY | 2021-11-04 11:03 | EXTERNAL MEDICAL SUMMARY RPT | Continuity of Care Document ---
:1940 Author Organization [facility] Address [address] [place] [phone] Phone Allergies No information. Encounters No information. Functional Status No information. Immunizations No information. Medications No information. Problems No information. Procedures No information. Results/Labs test date author facility value unit interpret ation Result panel 1 (unknown) (no (unknown) (unknown) (no value) (units (unk nown) date) unknown) (unknown) (no (unknown) (unknown) (no value) (units (unk nown) date) unknown) (unknown) (no (unknown) (unknown) [address] [place] [address] (units (unknown) date) unknown) (unknown) (no (unknown) (unknown) AI P1/2t: 532.0 msec (uni ts (unknown) date) unknown) (unknown) (no (unknown) (unknown) AI dec slope: 209.5 (unit s (unknown) date) cm/sec2 unknown) (unknown) (no (unknown) (unknown) sev ratio: 0.34 (units (unknown) date) unknown) (unknown) (no (unknown) (unknown) [place] [address] (unit s (unknown) date) unknown) (unknown) (no (unknown) (unknown) Draft (units (unkno wn) date) unknown) (unknown) (no (unknown) (unknown) Echocardiogram (units (unknown) date) Report unknown) (unknown) (no (unknown) (unknown) Echocardiography (units (unknown) date) Report unknown) (unknown) (no (unknown) (unknown) Electronically (units (unknown) date) signed by: Deep unknown) Alice Llamas on 10/01/2021 (unknown) (no (unknown) (unknown) [place] (units (unkno wn) date) unknown) (unknown) (no (unknown) (unknown) [facility] (units (unknown) date) unknown) (unknown) (no (unknown) (unknown) Nuclear Medicine (units (unknown) date) Report unknown) (unknown) (no (unknown) (unknown) Signed (units (unkno wn) date) unknown) (unknown) (no (unknown) (unknown) (no value) (units (unk nown) date) unknown) (unknown) (no (unknown) (unknown) +---------+ [phone] (uni ts (unknown) date) +---------+ unknown) (unknown) (no (unknown) (unknown) +---------+ Hospital (uni ts (unknown) date) +---------+ unknown) (unknown) (no (unknown) (unknown) + (uni ts (unknown) date) unknown) + (unknown) (no (unknown) (unknown) 10/01/21 (units (unkno wn) date) unknown) (unknown) (no (unknown) (unknown) 1) Mildly increased (unit s (unknown) date) left ventricular unknown) tihckness (concentric) with normal size (unknown) (no (unknown) (unknown) 17mmHg, severity (units (unknown) date) ratio 0.34). unknown) (unknown) (no (unknown) (unknown) 2) Mildly enlarged (units (unknown) date) right ventricle with unknown) mildly reduced function. There is a (unknown) (no (unknown) (unknown) 3) Severe biatrial (units (unknown) date) enlargement (left unknown) worse than right). (unknown) (no (unknown) (unknown) 4) There is mild to (unit s (unknown) date) moderate mitral unknown) regurgitation. (unknown) (no (unknown) (unknown) 5) There is mild to (unit s (unknown) date) moderate aortic unknown) regurgitation. (unknown) (no (unknown) (unknown) 6) There is mild to (unit s (unknown) date) moderate aortic unknown) stenosis (valve area 1.4cm2, mean gradient (unknown) (no (unknown) (unknown) 7) Compared to the (units (unknown) date) Echo done 02/01/2020, unknown) aortic regurgitation has worsened (unknown) (no (unknown) (unknown) : : [address] : (unit s (unknown) date) : unknown) (unknown) (no (unknown) (unknown) : : [id number] : : (units (unknown) date) unknown) (unknown) (no (unknown) (unknown) : : DAVID Villalobos : (unit s (unknown) date) : unknown) (unknown) (no (unknown) (unknown) : : Phone: [phone] : : (unit s (unknown) date) unknown) (unknown) (no (unknown) (unknown) :Account #: (units (un known) date) [id number] Gender: unknown) Male BSA: 2.0 m2 : (unknown) (no (unknown) (unknown) :: 1940 (units (unknown) date) Age: 81 yrs BP: 94/51 unknown) mmHg: (unknown) (no (unknown) (unknown) :Hospital MRN #: (units (unknown) date) [id number] unknown) ReadingLocation: Weight: 183 lb: (unknown) (no (unknown) (unknown) :Name: MACK PATINO (unit s (unknown) date) Study Date: unknown) 10/01/2021 Height: 71 in : (unknown) (no (unknown) (unknown) :Ordering Physician: (uni ts (unknown) date) BIANCA, : unknown) (unknown) (no (unknown) (unknown) :Reason For Study: (units (unknown) date) DIASTOLIC HEART unknown) FAILURE : (unknown) (no (unknown) (unknown) :Referring: BIANCA, (units (unknown) date) SHEREE W : unknown) (unknown) (no (unknown) (unknown) :SHEREE W Performed (uni ts (unknown) date) By: Milvia Guillen : unknown) (unknown) (no (unknown) (unknown) Ao V2 VTI: 59.3 cm (units (unknown) date) VIANNEY(V,D): 1.4 cm2 unknown) (unknown) (no (unknown) (unknown) Ao V2 max: 257.0 (units (unknown) date) cm/sec LVOT Max Lyle: unknown) 99.0 cm/sec (unknown) (no (unknown) (unknown) Ao V2 mean: 188.9 (units (unknown) date) cm/sec LV V1 max PG: unknown) 3.9 mmHg (unknown) (no (unknown) (unknown) Ao max P.6 mmHg (uni ts (unknown) date) LV V1 VTI: 20.0 cm unknown) (unknown) (no (unknown) (unknown) Ao mean P.2 (units (unknown) date) mmHg VIANNEY(I,D): 1.2 unknown) cm2 (unknown) (no (unknown) (unknown) Aortic Valve: The (units (unknown) date) aortic valve is unknown) heavily calcified. The aortic valve is (unknown) (no (unknown) (unknown) Atria: The left (units (unknown) date) atrium is severely unknown) dilated. The right atrium is severely (unknown) (no (unknown) (unknown) CARDIAC STRESS: The (unit s (unknown) date) patient underwent IV unknown) Lexiscan perfusion study under the (unknown) (no (unknown) (unknown) CONCLUSION: This is (unit s (unknown) date) an abnormal unknown) myocardial perfusion study consistent with (unknown) (no (unknown) (unknown) COPIES MNE: PALV; (units (unknown) date) unknown) (unknown) (no (unknown) (unknown) Comparison is made (units (unknown) date) with the unknown) echocardiogram of 04/10/2020. The patient has a (unknown) (no (unknown) (unknown) DATE OF SERVICE: (units (unknown) date) 10/01/2021 unknown) (unknown) (no (unknown) (unknown) DICTATING MD/COPIES (unit s (unknown) date) TO: Siva Alex MD unknown) (unknown) (no (unknown) (unknown) Doppler Measurements (uni ts (unknown) date) + Calculations unknown) (unknown) (no (unknown) (unknown) During stress prone (unit s (unknown) date) images, inferior apex unknown) defect completely normalized, (unknown) (no (unknown) (unknown) E/E' lat: 18.5 (units (unknown) date) unknown) (unknown) (no (unknown) (unknown) E/E' med: 24.0 PA (units (unknown) date) mean P.0 mmHg unknown) (unknown) (no (unknown) (unknown) E/e' average: 21.2 (units (unknown) date) unknown) (unknown) (no (unknown) (unknown) EPSS: 1.5 cm (units (u nknown) date) unknown) (unknown) (no (unknown) (unknown) FS: 29.1 % Ao Arch (units (unknown) date) Diam (Prox Trans): unknown) 3.3 cm (unknown) (no (unknown) (unknown) GATED STUDY: Resting (uni ts (unknown) date) LV ejection fraction unknown) 50 and stress LV ejection fraction (unknown) (no (unknown) (unknown) Great Vessels: The (units (unknown) date) aortic root is normal unknown) size. The ascending aorta could not (unknown) (no (unknown) (unknown) INDICATION: CHF with (uni ts (unknown) date) known history of unknown) coronary artery bypass surgery in 2012, (unknown) (no (unknown) (unknown) IVSd: 1.1 cm (units (u nknown) date) unknown) (unknown) (no (unknown) (unknown) Interpretation (units (unknown) date) Summary unknown) (unknown) (no (unknown) (unknown) LA A2 area: 40.8 cm2 (uni ts (unknown) date) RA long axis: 7.5 cm unknown) (unknown) (no (unknown) (unknown) LA A4 area: 38.7 cm2 (uni ts (unknown) date) RA area: 33.7 cm2 unknown) (unknown) (no (unknown) (unknown) LA length (vol): 7.8 (uni ts (unknown) date) cm RA vol: 128.4 ml unknown) (unknown) (no (unknown) (unknown) LA vol index: 85.2 (units (unknown) date) ml/m2 unknown) (unknown) (no (unknown) (unknown) LA vol: 172.9 ml RA (unit s (unknown) date) : 63.2 ml/m2 unknown) (unknown) (no (unknown) (unknown) LVIDd: 5.4 cm LVOT (units (unknown) date) diam: 2.2 cm unknown) (unknown) (no (unknown) (unknown) LVIDs: 3.9 cm Ao (units (unknown) date) root diam: 3.8 cm unknown) (unknown) (no (unknown) (unknown) LVPWd: 1.1 cm (units ( unknown) date) unknown) (unknown) (no (unknown) (unknown) Lat Peak E' Lyle: 7.5 (uni ts (unknown) date) cm/sec PA pr(Accel): unknown) 53.3 mmHg (unknown) (no (unknown) (unknown) Left Ventricle: The (unit s (unknown) date) left ventricle is unknown) normal in size. There is mild (unknown) (no (unknown) (unknown) MMode/2D (units (unkno wn) date) Measurements + unknown) Calculations (unknown) (no (unknown) (unknown) MV A max lyle: 0.69 (units (unknown) date) cm/sec TR max PG: unknown) 36.5 mmHg (unknown) (no (unknown) (unknown) MV E max lyle: 139.1 (unit s (unknown) date) cm/sec TR max lyle: unknown) 301.9 cm/sec (unknown) (no (unknown) (unknown) MV E/A: 201.1 PA V2 (unit s (unknown) date) max: 96.9 cm/sec unknown) (unknown) (no (unknown) (unknown) MV V2 VTI: 37.9 cm (units (unknown) date) unknown) (unknown) (no (unknown) (unknown) MV V2 mean: 81.8 (units (unknown) date) cm/sec MR VTI: 171.2 unknown) cm (unknown) (no (unknown) (unknown) MV dec time: 0.19 (units (unknown) date) sec unknown) (unknown) (no (unknown) (unknown) MV mean P.1 mmHg (uni ts (unknown) date) unknown) (unknown) (no (unknown) (unknown) MVA(VTI): 1.9 cm2 (units (unknown) date) unknown) (unknown) (no (unknown) (unknown) MYOCARDIAL PERFUSION (uni ts (unknown) date) SCAN: Stress supine, unknown) resting supine and stress prone (unknown) (no (unknown) (unknown) Med Peak E' Lyle: 5.8 (uni ts (unknown) date) cm/sec PA V2 mean: unknown) 66.4 cm/sec (unknown) (no (unknown) (unknown) Mitral Valve: There (unit s (unknown) date) is moderate mitral unknown) annular calcification. The mitral (unknown) (no (unknown) (unknown) PROCEDURE: (units (unk nown) date) Pharmacological unknown) perfusion study. (unknown) (no (unknown) (unknown) Pericardium/ Pleura (unit s (unknown) date) There is no unknown) pericardial effusion. There is no pleural (unknown) (no (unknown) (unknown) Procedure: A (units (u nknown) date) two-dimensional unknown) transthoracic echocardiogram with color flow (unknown) (no (unknown) (unknown) Pulmonic Valve: The (unit s (unknown) date) pulmonic valve is not unknown) well visualized. There is mild (unknown) (no (unknown) (unknown) RADIOPHARMACEUTICAL: (uni ts (unknown) date) 25.0 millicurie unknown) technetium-99m Myoview IV was injected at (unknown) (no (unknown) (unknown) RAW DATA: There was (unit s (unknown) date) increased unknown) subdiaphragmatic activity. (unknown) (no (unknown) (unknown) RVD1 (basal): 4.8 cm (uni ts (unknown) date) unknown) (unknown) (no (unknown) (unknown) RVD2 (mid): 4.4 cm (units (unknown) date) unknown) (unknown) (no (unknown) (unknown) Reading (units (unkno wn) date) Physician:10:57 AM unknown) (unknown) (no (unknown) (unknown) Resting (units (unkno wn) date) end-diastolic volume unknown) 153 mL. TID ratio 1.13, which is within normal (unknown) (no (unknown) (unknown) Right Ventricle: (units (unknown) date) There is a pacemaker unknown) lead in the right ventricle. The right (unknown) (no (unknown) (unknown) SV(LVOT): 73.6 ml (units (unknown) date) unknown) (unknown) (no (unknown) (unknown) Mack Patino - MRN: (unit s (unknown) date) [id number] unknown) (unknown) (no (unknown) (unknown) TAPSE: 1.7 cm (units ( unknown) date) unknown) (unknown) (no (unknown) (unknown) The ejection (units (u nknown) date) fraction is estimated unknown) to be 55-60%. Apical wall motion (unknown) (no (unknown) (unknown) Tricuspid Valve: The (uni ts (unknown) date) tricuspid valve is unknown) not well visualized, but is grossly (unknown) (no (unknown) (unknown) [employer]ADER/fn/lc (units (unkno wn) date) unknown) (unknown) (no (unknown) (unknown) (uni ts (unknown) date) unknown) (unknown) (no (unknown) (unknown) abnormality may (units (unknown) date) reflect pacemaker unknown) activation. Diastolic parameters suggest a (unknown) (no (unknown) (unknown) and Doppler was (units (unknown) date) performed. The study unknown) quality was technically adequate. (unknown) (no (unknown) (unknown) and normal systolic (unit s (unknown) date) function (EF 55-60%). unknown) (unknown) (no (unknown) (unknown) attenuation (units (un known) date) artifact, which got unknown) improved and resolved during stress prone (unknown) (no (unknown) (unknown) be visualized. The (units (unknown) date) inferior vena cava unknown) was not well visualized. (unknown) (no (unknown) (unknown) cannot be estimated (unit s (unknown) date) on this exam. unknown) (unknown) (no (unknown) (unknown) complete heart (units (unknown) date) block, history with unknown) dual-chamber pacemaker, persistent AFib. (unknown) (no (unknown) (unknown) concentric left (units (unknown) date) ventricular unknown) hypertrophy. Proximal septal thickening is noted. (unknown) (no (unknown) (unknown) dd: 10/01/2021 (units (unknown) date) 17:04:00 dt: unknown) 10/01/2021 18:49:00 (unknown) (no (unknown) (unknown) decreased perfusion (unit s (unknown) date) of base to mid unknown) anterior wall. No reversible ischemia. (unknown) (no (unknown) (unknown) dilated. There is a (unit s (unknown) date) catheter/pacemaker unknown) lead seen in the right atrium. There is (unknown) (no (unknown) (unknown) doc#: [id number]/job#: (uni ts (unknown) date) [id number] unknown) (unknown) (no (unknown) (unknown) dyspnea. (units (unkno wn) date) unknown) (unknown) (no (unknown) (unknown) effusion. (units (unkn own) date) unknown) (unknown) (no (unknown) (unknown) far as perfusion (units (unknown) date) scan is concerned, unknown) this is a low-risk myocardial perfusion (unknown) (no (unknown) (unknown) from mild to (units (u nknown) date) mild-moderate to unknown) mitral regurgitation has worsened from mild to (unknown) (no (unknown) (unknown) images were compared (uni ts (unknown) date) to each other. Stress unknown) supine and resting supine images (unknown) (no (unknown) (unknown) images. Resting left (uni ts (unknown) date) ventricular ejection unknown) fraction 50 percent and stress left (unknown) (no (unknown) (unknown) limits. Lung/heart (units (unknown) date) ratio 0.38, which is unknown) within normal limits. (unknown) (no (unknown) (unknown) mild to moderate (units (unknown) date) aortic stenosis. unknown) There is mild to moderate aortic (unknown) (no (unknown) (unknown) mild-moderate on (units (unknown) date) this study. unknown) (unknown) (no (unknown) (unknown) moderate size, mild (unit s (unknown) date) infarction of base to unknown) mid anterior wall without any (unknown) (no (unknown) (unknown) no Doppler evidence (unit s (unknown) date) for an interatrial unknown) shunt. (unknown) (no (unknown) (unknown) normal. There is (units (unknown) date) mild tricuspid unknown) regurgitation. Right ventricular systolic (unknown) (no (unknown) (unknown) paced rhythm. The (units (unknown) date) heart rate ranged unknown) between 65-80 bpm during the study. (unknown) (no (unknown) (unknown) pacemaker lead in (units (unknown) date) the right ventricle. unknown) (unknown) (no (unknown) (unknown) pacing. No sustained (uni ts (unknown) date) ventricular unknown) tachycardia seen. No chest pain. Had (unknown) (no (unknown) (unknown) patient remained (units (unknown) date) having underlying unknown) AFib, as well as intermittent ventricular (unknown) (no (unknown) (unknown) percent. I do not (units (unknown) date) see any significant unknown) wall motion abnormalities during stress. (unknown) (no (unknown) (unknown) pressure is (units (un known) date) estimated to be 37 unknown) mmHg plus the clinically estimated CVP which (unknown) (no (unknown) (unknown) pressures. (units (unk nown) date) unknown) (unknown) (no (unknown) (unknown) protocol. The (units ( unknown) date) patient remained unknown) hemodynamically stable. Baseline blood (unknown) (no (unknown) (unknown) pseudonormalization (unit s (unknown) date) pattern, consistent unknown) with probable elevated filling (unknown) (no (unknown) (unknown) pulmonic (units (unkno wn) date) regurgitation. unknown) (unknown) (no (unknown) (unknown) reduced. (units (unkno wn) date) unknown) (unknown) (no (unknown) (unknown) regurgitation. (units (unknown) date) unknown) (unknown) (no (unknown) (unknown) revealed (units (unkno wn) date) moderate-size, unknown) moderately decreased perfusion of base to mid anterior (unknown) (no (unknown) (unknown) reversible ischemia. (uni ts (unknown) date) There was also unknown) evidence of diaphragmatic tissue (unknown) (no (unknown) (unknown) scan. (units (unkno wn) date) unknown) (unknown) (no (unknown) (unknown) stress and 12.9 (units (unknown) date) millicurie unknown) technetium-99m Myoview IV was injected at rest. (unknown) (no (unknown) (unknown) suggestive of (units ( unknown) date) diaphragmatic tissue unknown) attenuation artifact. Base to mid anterior (unknown) (no (unknown) (unknown) supervision of an (units (unknown) date) attending staff using unknown) standard intravenous Lexiscan, as per (unknown) (no (unknown) (unknown) trileaflet. There is (uni ts (unknown) date) moderately reduced unknown) leaflet mobility. The peak aortic (unknown) (no (unknown) (unknown) underlying AFib and (unit s (unknown) date) occasional unknown) ventricular sensing with inferior and lateral T- (unknown) (no (unknown) (unknown) valve leaflets are (units (unknown) date) moderately calcified. unknown) There is mild to moderate mitral (unknown) (no (unknown) (unknown) velocity is 2.6 (units (unknown) date) m/sec. The aortic unknown) valve mean gradient is 17 mmHg. There is (unknown) (no (unknown) (unknown) ventricle is mildly (unit s (unknown) date) dilated. Right unknown) ventricular systolic function is mildly (unknown) (no (unknown) (unknown) ventricular ejection (uni ts (unknown) date) fraction 57 percent. unknown) No transient ischemic dilatation. (unknown) (no (unknown) (unknown) wall defect got some (uni ts (unknown) date) improvement. However, unknown) patient remained to have mildly (unknown) (no (unknown) (unknown) wall, as well as (units (unknown) date) moderate size, unknown) severely decreased perfusion of inferoapex. (unknown) (no (unknown) (unknown) was 102/58. Baseline (uni ts (unknown) date) rhythm predominantly unknown) ventricular paced rhythm with (unknown) (no (unknown) (unknown) wave inversion. (units (unknown) date) During Lexiscan unknown) infusion, more rampart conduction was seen. (unknown) (no (unknown) (unknown) 3762 (units (unkno wn) date) unknown) (unknown) (no (unknown) (unknown) 57 (units (unkno wn) date) unknown) (unknown) (no (unknown) (unknown) Accession Number: (units (unknown) date) [id number] unknown) (unknown) (no (unknown) (unknown) Accession Number: (units (unknown) date) [id number] unknown) (unknown) (no (unknown) (unknown) Age/Sex: 81 / M Date (uni ts (unknown) date) of Service: unknown) (unknown) (no (unknown) (unknown) As (units (unkno wn) date) unknown) (unknown) (no (unknown) (unknown) : 1940 (units (unknown) date) Acct:[id number] unknown) (unknown) (no (unknown) (unknown) GenericComposite[ (units (unknown) date) VIANNEY indexed to BSA unknown) (cm^2/m^2): 0.61 ] (unknown) (no (unknown) (unknown) GenericComposite[ LV (uni ts (unknown) date) araujo. diameter/BSA unknown) (cm/m^2): 2.7 ] (unknown) (no (unknown) (unknown) GenericComposite[ LV (uni ts (unknown) date) sys. diameter/BSA unknown) (cm/m^2): 1.9 ] (unknown) (no (unknown) (unknown) Loc: [facility] (units (unkn own) date) unknown) (unknown) (no (unknown) (unknown) Ordering Provider: (units (unknown) date) Sheree Garcia unknown) (unknown) (no (unknown) (unknown) Patient: Mack Patino (uni ts (unknown) date) MR#: [id number] unknown) (unknown) (no (unknown) (unknown) Procedure: EC echo (units (unknown) date) doppler complete unknown) (unknown) (no (unknown) (unknown) Procedure: NM ludwig (units (unknown) date) perf SPECT R+S pharm unknown) (unknown) (no (unknown) (unknown) The (units (unkno wn) date) unknown) (unknown) (no (unknown) (unknown) minimal (units (unkno wn) date) unknown) (unknown) (no (unknown) (unknown) pressure (units (unkno wn) date) unknown) Result panel 2 (unknown) (no date) (unknown) (unknown) Negative (units (unkn own) unknown) Result panel 3 (unknown) (no (unknown) (unknown) (no value) (units (unk nown) date) unknown) (unknown) (no (unknown) (unknown) (no value) (units (unk nown) date) unknown) (unknown) (no (unknown) (unknown) [address] [place] [address] (units (unknown) date) unknown) (unknown) (no (unknown) (unknown) [place]units ( unknown[place] [id number] unknown) (unknown) (no (unknown) (unknown) Draft (units (unkno wn) date) unknown) (unknown) (no (unknown) (unknown) [facility] (units (unknown) date) unknown) (unknown) (no (unknown) (unknown) Nuclear Medicine (units (unknown) date) Report unknown) (unknown) (no (unknown) (unknown) (no value) (units (unk nown) date) unknown) (unknown) (no (unknown) (unknown) CARDIAC STRESS: (units (unknown) date) The patient unknown) underwent IV Lexiscan perfusion study under the (unknown) (no (unknown) (unknown) CONCLUSION: This (units (unknown) date) is an abnormal unknown) myocardial perfusion study consistent with (unknown) (no (unknown) (unknown) COPIES MNE: PALV; (units (unknown) date) unknown) (unknown) (no (unknown) (unknown) DATE OF SERVICE: (units (unknown) date) 10/01/2021 unknown) (unknown) (no (unknown) (unknown) DICTATING (units (unkn own) date) MD/COPIES TO: Siva unknown) MD Isai (unknown) (no (unknown) (unknown) During stress (units ( unknown) date) prone images, unknown) inferior apex defect completely normalized, (unknown) (no (unknown) (unknown) GATED STUDY: (units (u nknown) date) Resting LV ejection unknown) fraction 50 and stress LV ejection fraction (unknown) (no (unknown) (unknown) INDICATION: CHF (units (unknown) date) with known history unknown) of coronary artery bypass surgery in 2013, (unknown) (no (unknown) (unknown) MYOCARDIAL (units (unk nown) date) PERFUSION SCAN: unknown) Stress supine, resting supine and stress prone (unknown) (no (unknown) (unknown) PROCEDURE: (units (unk nown) date) Pharmacological unknown) perfusion study. (unknown) (no (unknown) (unknown) RADIOPHARMACEUTICA (units (unknown) date) L: 25.0 millicurie unknown) technetium-99m Myoview IV was injected at (unknown) (no (unknown) (unknown) RAW DATA: There (units (unknown) date) was increased unknown) subdiaphragmatic activity. (unknown) (no (unknown) (unknown) Resting (units (unkno wn) date) end-diastolic unknown) volume 153 mL. TID ratio 1.13, which is within normal (unknown) (no (unknown) (unknown) Mack Patino - (units (unknown) date) unknown) (unknown) (no (unknown) (unknown) [employer]ADER/fn/lc (units (unkno wn) date) unknown) (unknown) (no (unknown) (unknown) attenuation (units (un known) date) artifact, which got unknown) improved and resolved during stress prone (unknown) (no (unknown) (unknown) complete heart (units (unknown) date) block, history with unknown) dual-chamber pacemaker, persistent AFib. (unknown) (no (unknown) (unknown) dd: 10/01/2021 (units (unknown) date) 17:04:00 dt: unknown) 10/01/2021 18:49:00 (unknown) (no (unknown) (unknown) decreased (units (unkn own) date) perfusion of base unknown) to mid anterior wall. No reversible ischemia. (unknown) (no (unknown) (unknown) doc#: (units (unkno wn) date) [id number]/job#: unknown) [id number] (unknown) (no (unknown) (unknown) dyspnea. (units (unkno wn) date) unknown) (unknown) (no (unknown) (unknown) far as perfusion (units (unknown) date) scan is concerned, unknown) this is a low-risk myocardial perfusion (unknown) (no (unknown) (unknown) images were (units (un known) date) compared to each unknown) other. Stress supine and resting supine images (unknown) (no (unknown) (unknown) images. Resting (units (unknown) date) left ventricular unknown) ejection fraction 50 percent and stress left (unknown) (no (unknown) (unknown) limits. Lung/heart (units (unknown) date) ratio 0.38, which unknown) is within normal limits. (unknown) (no (unknown) (unknown) moderate size, (units (unknown) date) mild infarction of unknown) base to mid anterior wall without any (unknown) (no (unknown) (unknown) pacing. No (units (unk nown) date) sustained unknown) ventricular tachycardia seen. No chest pain. Had (unknown) (no (unknown) (unknown) patient remained (units (unknown) date) having underlying unknown) AFib, as well as intermittent ventricular (unknown) (no (unknown) (unknown) percent. I do not (units (unknown) date) see any significant unknown) wall motion abnormalities during stress. (unknown) (no (unknown) (unknown) protocol. The (units ( unknown) date) patient remained unknown) hemodynamically stable. Baseline blood (unknown) (no (unknown) (unknown) revealed (units (unkno wn) date) moderate-size, unknown) moderately decreased perfusion of base to mid anterior (unknown) (no (unknown) (unknown) reversible (units (unk nown) date) ischemia. There was unknown) also evidence of diaphragmatic tissue (unknown) (no (unknown) (unknown) scan. (units (unkno wn) date) unknown) (unknown) (no (unknown) (unknown) stress and 12.9 (units (unknown) date) millicurie unknown) technetium-99m Myoview IV was injected at rest. (unknown) (no (unknown) (unknown) suggestive of (units ( unknown) date) diaphragmatic unknown) tissue attenuation artifact. Base to mid anterior (unknown) (no (unknown) (unknown) supervision of an (units (unknown) date) attending staff unknown) using standard intravenous Lexiscan, as per (unknown) (no (unknown) (unknown) underlying AFib (units (unknown) date) and occasional unknown) ventricular sensing with inferior and lateral T- (unknown) (no (unknown) (unknown) ventricular (units (un known) date) ejection fraction unknown) 57 percent. No transient ischemic dilatation. (unknown) (no (unknown) (unknown) wall defect got (units (unknown) date) some improvement. unknown) However, patient remained to have mildly (unknown) (no (unknown) (unknown) wall, as well as (units (unknown) date) moderate size, unknown) severely decreased perfusion of inferoapex. (unknown) (no (unknown) (unknown) was 102/58. (units (un known) date) Baseline rhythm unknown) predominantly ventricular paced rhythm with (unknown) (no (unknown) (unknown) wave inversion. (units (unknown) date) During Lexiscan unknown) infusion, more rampart conduction was seen. (unknown) (no (unknown) (unknown) 3762 (units (unkno wn) date) unknown) (unknown) (no (unknown) (unknown) 57 (units (unkno wn) date) unknown) (unknown) (no (unknown) (unknown) Accession Number: (units (unknown) date) unknown) (unknown) (no (unknown) (unknown) Age/Sex: 81 / M (units (unknown) date) Date of Service: unknown) (unknown) (no (unknown) (unknown) As (units (unkno wn) date) unknown) (unknown) (no (unknown) (unknown) : 1940 (units (unknown) date) Acct:[id number] unknown) (unknown) (no (unknown) (unknown) Loc: [facility] (units (unkn own) date) unknown) (unknown) (no (unknown) (unknown) Ordering Provider: (units (unknown) date) unknown) (unknown) (no (unknown) (unknown) Patient: (units (unkno wn) date) Mack aPtino MR#: unknown) [id number] (unknown) (no (unknown) (unknown) Procedure: (units (unk nown) date) unknown) (unknown) (no (unknown) (unknown) The (units (unkno wn) date) unknown) (unknown) (no (unknown) (unknown) minimal (units (unkno wn) date) unknown) (unknown) (no (unknown) (unknown) pressure (units (unkno wn) date) unknown) Social History No information. Vital Signs No information.
[2021-11-04 11:26] LABS: EOSINOPHILS % (AUTO) 1.6 %; LYMPHOCYTES # (AUTO) 0.9 10^3/uL (1.5-3.5); LYMPHOCYTES % (AUTO) 49.5 %; MEAN CORPUSCULAR HEMOGLOBIN 37.5 pg (27.0-31.0); MEAN CORPUSCULAR HGB CONC 34.3 g/dL (32.0-36.0); MEAN CORPUSCULAR VOLUME 109.2 fL (80.0-94.0); MEAN PLATELET VOLUME 11.7 fL (7.4-11.4); MONOCYTES # (AUTO) 0.1 10^3/uL (0.0-1.0); MONOCYTES % (AUTO) 3.7 %; NEUTROPHILS # (AUTO) 0.9 10^3/uL (1.5-6.6); NEUTROPHILS % (AUTO) 45.2 %; NRBC ABSOLUTE COUNT (AUTO) 0.02 x10^3/uL; NUCLEATED RED BLOOD CELLS AUTO 1.1 /100WBC; RED BLOOD COUNT 1.52 10^6/uL (4.70-6.10); RED CELL DISTRIBUTION WIDTH 21.2 % (12.0-15.0)
[2021-11-04 11:30] LABS: HCT - HEMATOCRIT 16.6 % (42.0-52.0); HGB - HEMOGLOBIN 5.7 g/dL (14.0-18.0); WHITE BLOOD COUNT 1.9 x10^3/uL (4.8-10.8)
[2021-11-04 11:31] LABS: PLT - PLATELET COUNT 24 10^3/uL (130-450); SLIDE REVIEW? Indicated
--- NOTE | 2021-11-04 11:40 | ED Physician Documentation ---
PD HPI DYSPNEA - Stated complaint Stated Complaint: SOA - Chief complaint Chief Complaint: Resp - History obtained from History obtained from: Patient, Family - Additional information Additional information: 81-year-old gentleman with history of A. fib, cardiomyopathy necessitating an AICD, and myelodysplastic syndrome and he is transfusion dependent with increasing frequency of transfusions. He presents today with shortness of breath of the last few days associated with productive cough starting today. He has had chills at home. No pedal edema or chest pain. Review of Systems Ten Systems: 10 systems reviewed and negative Constitutional: reports: Chills, Fatigue. denies: Fever Nose: denies: Rhinorrhea / runny nose PD PAST MEDICAL HISTORY - Past Medical History Cardiovascular: High cholesterol, Coronary artery disease, Atrial fibrillation, Other (AICD) Respiratory: Other Neuro: Other (RLS) Endocrine/Autoimmune: None GI: GERD, Hepatitis : None HEENT: None Psych: Depression Musculoskeletal: None Derm: None - Past Surgical History Past Surgical History: Yes Ortho: Other Cardiovascular: CABG, AICD Derm: Skin cancer surgery - Present Medications Home Medications: Ambulatory Orders Medication Instructions Recorded Confirmed Atorvastatin Calcium 40 mg PO QPM 09/11/13 11/04/21 Carbidopa/Levodopa 25/100 [Sinemet 1 tab PO BID PRN 11/11/13 11/04/21 25 mg/100 mg] Finasteride 5 mg PO DAILY 11/11/13 11/04/21 Acyclovir [Zovirax] 400 mg PO BID 02/28/19 11/04/21 Esomeprazole Magnesium [Nexium] 40 mg PO DAILY 02/28/19 11/04/21 Multivitamin/Iron/Folic Acid 1 tab PO DAILY 02/28/19 11/04/21 [Centrum Adults Tablet] [place]-3/Dha/Epa/Fish Oil [Fish Oil 1,000 mg PO DAILY 02/28/19 11/04/21 1,000 mg Softgel] Ubidecarenone [Co Q-10] 300 mg PO DAILY 02/28/19 11/04/21 Tolterodine Tartrate [Detrol LA] 4 mg PO DAILY 10/20/19 11/04/21 Gabapentin 300 mg PO 1500 12/11/19 11/04/21 Sulfamethox/Trimeth 800/160 1 each PO DAILY #90 tablet 11/11/20 11/04/21 [Bactrim Ds] C,E,Zinc,Copper 11/Dhcsg7r/Lut 1 cap PO DAILY 04/04/21 11/04/21 [Ocuvite Adult 50 Plus Softgel] Melatonin 1 tab PO QPM 04/04/21 11/04/21 Carbidopa/Levodopa ER 50/200 1 tab PO QPM 07/31/21 11/04/21 [Sinemet Cr 50 mg/200 mg] Furosemide [Lasix] 20 mg PO DAILY #30 tablet 08/01/21 11/04/21 Gabapentin [Neurontin] 200 mg PO HS 08/01/21 11/04/21 Nitroglycerin [Nitrostat] 0.4 mg SL Q5MIN PRN #100 tablet 08/01/21 11/04/21 ondansetron HCL [Ondansetron HCl] 8 mg PO Q8HR PRN 11/03/21 11/04/21 Metoprolol Succinate [Toprol Xl] 25 mg PO BID 11/04/21 11/04/21 Rivaroxaban [Xarelto] 20 mg PO DAILY 11/04/21 11/04/21 - Allergies Allergies/Adverse Reactions: Allergies Allergy/AdvReac Type Severity Reaction Status Date / Time No Known Drug Allergies Allergy Verified 10/29/21 10:35 - Social History Does the pt smoke?: No Smoking Status: Never smoker Does the pt drink ETOH?: Yes Does the pt have substance abuse?: No - Immunizations Immunizations are current?: Yes Immunizations: TDAP >10years/unknown - POLST Patient has POLST: No PD ED PE NORMAL - Vitals Vital signs reviewed: Yes - General General: Alert and oriented X 3, Other (He appears pale with frequent cough) - HEENT HEENT: PERRL, EOMI - Neck Neck: Supple, no meningeal sign, No bony TTP - Cardiac Cardiac: RRR, No murmur - Respiratory Respiratory: No respiratory distress, Other (Rhonchorous at both bases) - Abdomen Abdomen: Non tender - Back Back: No CVA TTP, No spinal TTP - Derm Derm: Normal color, Warm and dry - Extremities Extremities: No edema, No calf tenderness / cord - Neuro Neuro: Alert and oriented X 3, Normal speech Results - Vitals Vitals: Vital Signs - 24 hr 11/04/21 11/04/21 11/04/21 10:54 11:27 11:32 Temperature 37.4 C Heart Rate 71 79 73 Respiratory 28 H 24 23 Rate Blood Pressure 99/68 94/52 L 95/57 L O2 Saturation 100 96 100 11/04/21 11/04/21 11/04/21 11:55 12:02 12:25 Temperature Heart Rate 78 81 89 Respiratory 20 22 20 Rate Blood Pressure 99/62 O2 Saturation 100 11/04/21 11/04/21 12:30 13:00 Temperature 36.5 C Heart Rate 74 72 Respiratory 24 20 Rate Blood Pressure 95/71 96/60 O2 Saturation 98 100 Oxygen O2 Source Room air - EKG (time done) 1056 Rate: Rate (enter#) Rhythm: Other (Underlying A. fib/flutter with paced complexes) Intervals: Wide QRS - Labs Labs: Microbiology 11/04/21 11:30 Respiratory Culture - Preliminary Sputum Laboratory Tests 11/04/21 11/04/21 11/04/21 11:17 11:17 11:30 WBC 1.9 L* RBC 1.52 L Hgb 5.7 L* Hct 16.6 L* MCV 109.2 H MCH 37.5 H MCHC 34.3 RDW 21.2 H Plt Count 24 L* MPV 11.7 H Neut # (Auto) 0.9 L Lymph # (Auto) 0.9 L [place] # (Auto) 0.1 Eos # (Auto) 0.0 Baso # (Auto) 0.0 Absolute Nucleated RBC 0.02 Total Counted POCKET MAKER Band Neuts % (Manual) Not Reportable Abnorm Lymph % (Manual) Not Reportable Nucleated RBC % 1.1 Neutrophils # (Manual) Not Reportable Lymphocytes # (Manual) Not Reportable Monocytes # (Manual) Not Reportable Eosinophils # (Manual) Not Reportable Basophils # (Manual) Not Reportable Differential Comment MANUAL=AUTO DIFF Manual Slide Review Indicated WBC Morphology NORMAL APPEARANCE Platelet Estimate DECREASED (<130,000) Platelet Morphology NORMAL APPEARANCE RBC Morph Micro Appear 1+ OVALOCYTES Sodium 133 L Potassium 4.3 Chloride 100 L Carbon Dioxide 22 Anion Gap 11.0 BUN 33 H Creatinine 1.1 Estimated GFR (MDRD) 64 L Glucose 138 H Lactic Acid Calcium 8.9 Total Bilirubin 1.3 H AST 24 ALT 10 Alkaline Phosphatase 54 Total Protein 5.6 L Albumin 3.4 Globulin 2.2 Albumin/Globulin Ratio 1.5 Nasal Adenovirus (PCR) NOT DETECTED Nasal B. parapertussis DNA (PCR) NOT DETECTED Nasal Coronavir 229E PCR NOT DETECTED Nasal Coronavir HKU1 PCR NOT DETECTED Nasal Coronavir NL63 PCR NOT DETECTED Nasal Coronavir OC43 PCR NOT DETECTED Nasal Enterovir/Rhinovir PCR NOT DETECTED Nasal Influenza B PCR NOT DETECTED Nasal Influenza A PCR NOT DETECTED Nasal Parainfluen 1 PCR NOT DETECTED Nasal Parainfluen 2 PCR NOT DETECTED Nasal Parainfluen 3 PCR NOT DETECTED Nasal Parainfluen 4 PCR NOT DETECTED Nasal RSV (PCR) NOT DETECTED Nasal B.pertussis DNA PCR NOT DETECTED Nasal C.pneumoniae (PCR) NOT DETECTED [place] Human Metapneumo PCR NOT DETECTED Nasal M.pneumoniae (PCR) NOT DETECTED Nasal SARS-CoV-2 (PCR) NOT DETECTED Blood Type Antibody Screen Crossmatch IS Only 11/04/21 11/04/21 11:53 11:53 WBC RBC Hgb Hct MCV MCH MCHC RDW Plt Count MPV Neut # (Auto) Lymph # (Auto) [place] # (Auto) Eos # (Auto) Baso # (Auto) Absolute Nucleated RBC Total Counted Band Neuts % (Manual) Abnorm Lymph % (Manual) Nucleated RBC % Neutrophils # (Manual) Lymphocytes # (Manual) Monocytes # (Manual) Eosinophils # (Manual) Basophils # (Manual) Differential Comment Manual Slide Review WBC Morphology Platelet Estimate Platelet Morphology RBC Morph Micro Appear Sodium Potassium Chloride Carbon Dioxide Anion Gap BUN Creatinine Estimated GFR (MDRD) Glucose Lactic Acid 4.2 H* Calcium Total Bilirubin AST ALT Alkaline Phosphatase Total Protein Albumin Globulin Albumin/Globulin Ratio Nasal Adenovirus (PCR) Nasal B. parapertussis DNA (PCR) Nasal Coronavir 229E PCR Nasal Coronavir HKU1 PCR Nasal Coronavir NL63 PCR Nasal Coronavir OC43 PCR Nasal Enterovir/Rhinovir PCR Nasal Influenza B PCR Nasal Influenza A PCR Nasal Parainfluen 1 PCR Nasal Parainfluen 2 PCR Nasal Parainfluen 3 PCR Nasal Parainfluen 4 PCR Nasal RSV (PCR) Nasal B.pertussis DNA PCR Nasal C.pneumoniae (PCR) [place] Human Metapneumo PCR Nasal M.pneumoniae (PCR) Nasal SARS-CoV-2 (PCR) Blood Type O POSITIVE Antibody Screen NEGATIVE Crossmatch IS Only See Detail PD MEDICAL DECISION MAKING - ED course ED course: 81-year-old gentleman with multiple comorbidities including active m yelodysplastic syndrome with pancytopenia and increasing transfusion need presents with shortness of breath. He is quite pale and is known to be significantly anemic, today's hemoglobin is 5.7 with persistent pancytopenia. Blood was readied for transfusion but he is also coughing up purulent sputum which was sent for culture and he has a lactic acidosis, I am not giving 30 mL/kg because of concern for pulmonary edema on x-ray although with review of the radiologist this is more likely to be a right lower lobe pneumonia. He was feeling symptomatically better after albuterol and after blood cultures he was administered 2 g of cefepime and I spoke with Dr. Dugan for admission at 12:48 PM. - Critical Care Time(min): 37 Time Includes: Direct patient care, Review records, Reassess patient, Document care, Coordinate care, Medical consult, Family consult for tx [facility] Data interpretation: Labs, Pulse ox, CXR Procedures excluded from critical care time: EKG Departure - Departure Disposition: [facility] DC/Xfer Clinical Impression: Myelodysplastic syndrome, Pancytopenia, Shortness of breath, Anemia requiring transfusions, Pneumonia Condition: Serious Discharge Date/Time: 11/04/21 14:14
--- NOTE | 2021-11-04 11:40 | XRAY Report ---
PROCEDURE: Chest 1 View X-Ray INDICATIONS: Dyspnoea TECHNIQUE: One view of the chest was acquired. COMPARISON: 07/31/2021 FINDINGS: Small to moderate right pleural effusion similar to the comparison CT. Diffuse interstitial prominenc e consistent with pulmonary edema also similar. Median sternotomy changes, left chest wall pacing dev ice, and cardiomegaly redemonstrated. IMPRESSION: Cardiomegaly with cardiogenic pulmonary edema and moderate right pleural effusion, all similar to com parison CT. Reviewed by: Reji Good MD on 11/04/2021 11:38 AM PDT Approved by: Reji Good MD on 11/04/2021 11:38 AM PDT Station ID: [id number]
[2021-11-04] MEDS ORDERED: ALBUTEROL NEB 2.5 MG/3 ML INH STA ×2 (11:42→12:06)
[2021-11-04 11:46] LABS: ALBUMIN 3.4 g/dL (3.2-5.5); ALBUMIN/GLOBULIN RATIO 1.5 (1.0-2.2); BILIRUBIN,TOTAL 1.3 mg/dL (0.2-1.0); CALCIUM 8.9 mg/dL (8.5-10.3); CREATININE 1.1 mg/dL (0.6-1.2); POTASSIUM 4.3 mmol/L (3.5-5.0); TOTAL PROTEIN 5.6 g/dL (6.7-8.2)
[2021-11-04] MEDS ORDERED: ALBUTEROL NEB 2.5 MG/3 ML INH ONE (11:56)
[2021-11-04 12:00] LABS: DIFFERENTIAL COMMENT MANUAL=AUTO DIFF; PLATELET ESTIMATE, MANUAL DECREASED (<130,000) (NORMAL); PLATELET MORPHOLOGY NORMAL APPEARANCE (NORMAL); WBC MORPHOLOGY (MULTIPLE) NORMAL APPEARANCE (NORMAL)
[2021-11-04] MEDS ORDERED: CEFEPIME 2 GM in SODIUM CHLORIDE 0.9% MINIBAG 100 ML IV STA (12:34)
[2021-11-04 12:44] LABS: B. PARAPERTUSSIS- RESP PCR PAN NOT DETECTED; B. PERTUSSIS- RESP PCR PANEL NOT DETECTED; C. PNEUMONIAE- RESP PCR PANEL NOT DETECTED; CORONAVIRUS 229E-RESP PCR NOT DETECTED; CORONAVIRUS HKU1-RESP PCR NOT DETECTED; CORONAVIRUS NL63-RESP PCR NOT DETECTED; CORONAVIRUS OC43-RESP PCR NOT DETECTED; HUMAN METAPNEUMOVIRUS NOT DETECTED; INFLUENZA A- RESP PCR PANEL NOT DETECTED; INFLUENZA B - RESP PCR PANEL NOT DETECTED; M. PNEUMONIAE- RESP PCR PANEL NOT DETECTED; PARAINFLUENZA VIRUS 1 NOT DETECTED; PARAINFLUENZA VIRUS 2 NOT DETECTED; PARAINFLUENZA VIRUS 3 NOT DETECTED; PARAINFLUENZA VIRUS 4 NOT DETECTED; RHINOVIRUS/ENTEROVIRUS NOT DETECTED; RSV- RESP PCR PANEL NOT DETECTED; SARS-CoV-2 -RESP PCR PANEL NOT DETECTED
[2021-11-04] MEDS ORDERED: guaiFENesin 600 MG TABLET PO STA (12:46)
[2021-11-04] MEDS ORDERED: SODIUM CHLORIDE 0.9% 1,000 ML IV STA (12:48)
[2021-11-04] MEDS ORDERED: ACETAMINOPHEN 325 MG TABLET PO PRN (13:22)
[2021-11-04] MEDS ORDERED: SODIUM CHLORIDE FLUSH 0.9% 10 ML SYRINGE IVP PRN (13:22)
[2021-11-04] MEDS ORDERED: ONDANSETRON 4 MG/2 ML VIAL IVP PRN (13:22)
[2021-11-04] MEDS ORDERED: SODIUM CHLORIDE 0.9% 1,000 ML IV SCH (14:00)
[2021-11-04 14:35] LABS: LACTIC ACID, VENOUS 4.9 mmol/L (0.5-2.2)
--- NOTE | 2021-11-04 14:45 | PHARMACY PROGRESS NOTE ---
- Best Possible Medication History Admit Date and Time: 11/04/21 1322 Processed by: Nursing Medication History completed: Yes Secondary Source(s): Physician records, Insurance records As the person ultimately responsible for medication therapy, providers are able to order a medication from an existing home medication list in [facility] via the "Reconcile Routine" prior to Confirmation of that medication by support architect. Such practice is discouraged except when the physician, in their clinical judgment, deems that a medical need exists for a medication without regard to previous use.
--- NOTE | 2021-11-04 15:04 | HISTORY & PHYSICAL EXAMINATION ---
Chief Complaint - Chief Complaint Chief Complaint: SOB History of Present Illness - Admitted From Admitted From:: ED - History Obtained From History obtained from: ED provider - History of Present Illness HPI Comment/Other: This is an 81-year-old white male who has a history of myelodysplastic syndrome, gets chemotherapy through [facility], has needed blood transfusions because of marked anemia, sometimes more than once per week. He has a past medical history of Afib, CAD with CABG done 2012, has an AICD, and restless leg syndrome. He was in Obs status here several mos ago for a CHF exacerbation, we did not have Echo service here to get an Echo then, and he was even tested for TB due to findings on CXR. He presented to the ED complaining of chills at home, cough and shortness of breath. His chest x-ray shows pleural effusion and an infiltrate and CHF. His L.A. is elevated at 4.2 He was not administered aggressive crystalloids because of CHF on chest x-ray. He was presented for admission to the hospitalist team to treat his severe anemia, shortness of breath, CHF, community-acquired pneumonia in a pt who is pancytopenic. History - Past Medical History Cardiovascular: reports: High cholesterol, Coronary artery disease, Atrial fibrillation, Other (AICD) Respiratory: reports: Other Neuro: reports: Other (RLS) Endocrine/Autoimmune: reports: None GI: reports: GERD, Hepatitis : reports: None HEENT: reports: None Psych: reports: Depression Musculoskeletal: reports: None Derm: reports: None MRSA Hx?: No Other Past Medical History: MDS - Past Surgical History Ortho: reports: Other Cardiovascular: reports: CABG, AICD Derm: reports: Skin cancer surgery - Family & Social History Family History: Mother: , Father: Family History Comment/Other: His father had Parkinson's disease or RLS Living arrangement: At home Living Situation: With spouse/s.o. 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 Now he reads all day. He exercises by walking around his property for about 2 miles every day. He is a non-smoker, quit 34 years ago. He drinks nearly no alcohol, 1 drink per week. - Substance History Use: Uses substance without health or social issues: NONE - POLST Patient has POLST: No Meds/Allgy - Home Medications Home Medications: Ambulatory Orders Medication Instructions Recorded Confirmed Atorvastatin Calcium 40 mg PO QPM 09/11/13 11/04/21 Carbidopa/Levodopa 25/100 [Sinemet 1 tab PO BID PRN 11/11/13 11/04/21 25 mg/100 mg] Finasteride 5 mg PO DAILY 11/11/13 11/04/21 Acyclovir [Zovirax] 400 mg PO BID 02/28/19 11/04/21 Esomeprazole Magnesium [Nexium] 40 mg PO DAILY 02/28/19 11/04/21 Multivitamin/Iron/Folic Acid 1 tab PO DAILY 02/28/19 11/04/21 [Centrum Adults Tablet] [place]-3/Dha/Epa/Fish Oil [Fish Oil 1,000 mg PO DAILY 02/28/19 11/04/21 1,000 mg Softgel] Ubidecarenone [Co Q-10] 300 mg PO DAILY 02/28/19 11/04/21 Tolterodine Tartrate [Detrol LA] 4 mg PO DAILY 10/20/19 11/04/21 Gabapentin 300 mg PO 1500 12/11/19 11/04/21 Sulfamethox/Trimeth 800/160 1 each PO DAILY #90 tablet 11/11/20 11/04/21 [Bactrim Ds] C,E,Zinc,Copper 11/Hvlhf9s/Lut 1 cap PO DAILY 04/04/21 11/04/21 [Ocuvite Adult 50 Plus Softgel] Melatonin 1 tab PO QPM 04/04/21 11/04/21 Carbidopa/Levodopa ER 50/200 1 tab PO QPM 07/31/21 11/04/21 [Sinemet Cr 50 mg/200 mg] Furosemide [Lasix] 20 mg PO DAILY #30 tablet 08/01/21 11/04/21 Gabapentin [Neurontin] 200 mg PO HS 08/01/21 11/04/21 Nitroglycerin [Nitrostat] 0.4 mg SL Q5MIN PRN #100 tablet 08/01/21 11/04/21 ondansetron HCL [Ondansetron HCl] 8 mg PO Q8HR PRN 11/03/21 11/04/21 Metoprolol Succinate [Toprol Xl] 25 mg PO BID 11/04/21 11/04/21 Rivaroxaban [Xarelto] 20 mg PO DAILY 11/04/21 11/04/21 - Allergies Allergies/Adverse Reactions: Allergies Allergy/AdvReac Type Severity Reaction Status Date / Time No Known Drug Allergies Allergy Verified 10/29/21 10:35 Review of Systems - Constitutional Constitutional: reports: Fatigue, Weakness - Gastrointestinal Gastrointestinal: reports: Constipation (He is currently straining to have a BM on a bedpan) Exam - Vital Signs Vital Signs: Vital Signs x48h Temp Pulse Pulse Resp BP BP Pulse Ox 11/04/21 14:25 35.7 C L 75 24 92/52 L 94 11/04/21 13:30 81 20 90/69 98 11/04/21 13:00 36.5 C 72 20 96/60 100 11/04/21 12:30 74 24 95/71 98 11/04/21 12:25 89 20 11/04/21 12:02 81 22 99/62 100 11/04/21 11:55 78 20 11/04/21 11:32 73 23 95/57 L 100 11/04/21 11:27 79 24 94/52 L 96 11/04/21 10:54 37.4 C 71 28 H 99/68 100 - Physical Exam General Appearance: positive: Moderate distress (SOB and also constipated and trying to have BM), Other (Thin. Pale.) Eyes Bilateral: positive: Normal inspection ENT: positive: ENT inspection nml Neck: positive: Nml inspection Respiratory: positive: Rales, Rhonchi Cardiovascular: positive: Other (Distant heart sounds, inaudible over his rhonchi) Abdomen: positive: Non-tender, No distention Skin: positive: Dry, Pallor Extremities: positive: Non-tender, No pedal edema Neurologic/Psychiatric: positive: Oriented x3 Conclusion/Plan - Problem List (1) Sepsis Conclusion/Plan: The patient has a low white blood count, high lactic acid level and evidence of infectious source being pneumonia. Will admit the patient to inpatient status and treat the underlying infection Recheck L.A. IV fluids were not aggressively given in the ED because of findings of CHF on chest x-ray, this is the same plan now. (2) CAP (community acquired pneumonia) Conclusion/Plan: The patient was started on cefepime by the ED provider. Will continue with empiric antibiotics. Start Mucinex for pulmonary toilet/expectoration. Give supplemental oxygen if saturations drop below 90%. Await respiratory culture result and blood culture results to tailor antibiotics (3) Anemia requiring transfusions Conclusion/Plan: The patient has required intermittent transfusions now sometimes twice a week and his most recent history. This anemia is likely adding to his SOB. With hemoglobin 5.7, 2 units of blood has already been ordered by the ED devin regan. We will recheck his H/H every 24 hours. (4) Pancytopenia due to chemotherapy Conclusion/Plan: As per Hx. We will transfuse irradiated PRBCs if hemoglobin falls under 7 which we are doing today. Would transfuse platelets if platelet count goes under 10 or if there are signs of bleeding. Diet will be with irradiated food Neutropenic precautions will be ordered (5) Myelodysplastic syndrome Conclusion/Plan: As per Hx. (6) CHF The reason for the AICD implant, therefore it is presumed that he already has a known depressed ejection fraction and the AICD was implanted prophylactically. During his last admission, an Echo could not be done, since the mental health technician was not here on the day he was here. An Echo will be ordered. We will continue with his usual p.o. Lasix dose because he is not desaturating on room air. (7) Afib Patient is ventricular paced therefore has a regular rate. On telemetry, the underlying atrial rhythm is A. fib. We will continue his Xarelto if he really takes this still with low plts (and would stop if plts < 10 or bleeding) and continue his Metoprolol. (8) Hx of coronary artery disease As per Hx. He had a CABG in 2012. Will continue his statin, B-yina and prn sublingual nitroglycerin. (9) AICD (automatic cardioverter/defibrillator) present Patient previously denied ever having a cardiac arrest as the reason for the AICD implant, therefore it is presumed that he already has a known depressed ejection fraction and the AICD was implanted prophylactically. During his last admission, an Echo could not be done, since the mental health technician was not here on the day he was here. An Echo will be ordered. (10) Restless leg syndrome We will continue his usual Sinemet and Gabapentin doses which he said is Neurologist ordered for his RLS. - Lab Results Fish Bones: 11/04/21 11:17 11/04/21 11:17 - Diagnostic Imaging Results Diagnostic Imaging Results: positive: Final report reviewed - Other Other Results/Comments: Attestation: The patient is expected to be discharged or transferred to another facility for 96 hours: Yes.
[2021-11-04 15:21] VITALS: BP 79/47
[2021-11-04] MEDS ORDERED: CARBIDOPA/LEVODOPA 25 MG/100 MG TABLET PO PRN (15:50)
[2021-11-04] MEDS ORDERED: NITROGLYCERIN SL 0.4 MG TABLET SL PRN (15:50)
[2021-11-04] MEDS ORDERED: LIDOCAINE 1% ABBOJECT 50 MG/5 ML SYRINGE IVP ONE (16:28)
[2021-11-04] MEDS ORDERED: SODIUM BICARBONATE ABBOJECT 50 MEQ/50 ML SYRINGE IVP ONE (16:28)
[2021-11-04] MEDS ORDERED: AMIODARONE 150 MG/3 ML VIAL IVP STA (16:28)
[2021-11-04] MEDS ORDERED: EPINEPHrine ABBOJECT 1 MG/10 ML SYRINGE IVP ONE (16:28)
--- NOTE | 2021-11-04 16:28 | ED Physician Documentation ---
ED Addendum - Addendum Addendum: 11/04/21 16:27 I was called to the ICU as this gentleman had coded. On arrival CPR was ongoing, he had not yet received any medications. We gave him epinephrine. He alternated between a narrow complex PEA and ventricular tachycardia. CPR was ongoing and had several rounds of CPR, given the V. tach we also loaded him with 300 mg of amiodarone and after that was unsuccessful also lidocaine. Given his acidosis he also received 1 amp of sodium bicarb. Throughout the code he never had a pulse or spontaneous respiratory activity. He was shocked several times and also his AICD shocked him several times. Despite this we were unable to obtain ROSC and the code was called at 1616.
--- NOTE | 2021-11-04 16:38 | Discharge Plan ---
Discharge Plan Problem Reviewed?: Yes Disposition: 20 No Smoking: If you smoke, Please STOP! Call for help.
--- NOTE | 2021-11-04 16:39 | DISCHARGE SUMMARY ---
Discharge Summary Admit Date: 11/04/21 Discharge Date: 11/04/21 Discharging Provider: Dr Rose Mary Dugan Primary Care Provider: Irma Jackman NP (PCP), Dr Iain Dc (Oncol) Discharge Disposition: 20 - HPI History of Present Illness: This is an 81-year-old white male who has a history of myelodysplastic syndrome, gets chemotherapy through [facility], has needed blood transfusions because of marked anemia, sometimes more than once per week. He has a past medical history of Afib, CAD with CABG done 2012, has an AICD, and restless leg syndrome. He was in Observation status here several mos ago for a CHF exacerbation, and we did not have Echo service here to get an Echo then. He was even tested for TB due to findings on CXR. Today he presented to the ED complaining of chills at home, cough and shortness of breath. His chest x-ray shows pleural effusions and an infiltrate and CHF. His L.A. is elevated at 4.2 He was not administered aggressive crystalloids because of CHF seen on chest x-ray. His WBC was 1.9, Hgb 5.7 and plt count 24. He was presented for admission to the Hospitalist team to treat his severe anemia, shortness of breath, CHF, community-acquired pneumonia in a pt who is pancytopenic. - HOSPITAL COURSE Hospital Course: He was admitted as an inpatient and started to receive a blood transfusion. He got iv Cefepime for the pneumonia. He was kept on his usual home medications. He needed to be put on a bedpan and had a lot of Valsalva maneuvers witnessed, while he was on a bedpan, feeling constipated. He was also short of breath during this time. Following that his heart rate decreased and then he became unresponsive. A CODE BLUE was called. He was in PEA, received Epi, bicarb then went into V. tach and was defibrillated several times. He did not survive the cardiac arrest however and was pronounced at 1616. - ALLERGIES Allergies/Adverse Reactions: Allergies Allergy/AdvReac Type Severity Reaction Status Date / Time No Known Drug Allergies Allergy Verified 10/29/21 10:35 - MEDICATIONS Home Medications: Ambulatory Orders Medication Instructions Recorded Confirmed Atorvastatin Calcium 40 mg PO QPM 09/11/13 11/04/21 Carbidopa/Levodopa 25/100 [Sinemet 1 tab PO BID PRN 11/11/13 11/04/21 25 mg/100 mg] Finasteride 5 mg PO DAILY 11/11/13 11/04/21 Acyclovir [Zovirax] 400 mg PO BID 02/28/19 11/04/21 Esomeprazole Magnesium [Nexium] 40 mg PO DAILY 02/28/19 11/04/21 Multivitamin/Iron/Folic Acid 1 tab PO DAILY 02/28/19 11/04/21 [Centrum Adults Tablet] [place]-3/Dha/Epa/Fish Oil [Fish Oil 1,000 mg PO DAILY 02/28/19 11/04/21 1,000 mg Softgel] Ubidecarenone [Co Q-10] 300 mg PO DAILY 02/28/19 11/04/21 Tolterodine Tartrate [Detrol LA] 4 mg PO DAILY 10/20/19 11/04/21 Gabapentin 300 mg PO 1500 12/11/19 11/04/21 Sulfamethox/Trimeth 800/160 1 each PO DAILY #90 tablet 11/11/20 11/04/21 [Bactrim Ds] C,E,Zinc,Copper 11/Cfsvz0s/Lut 1 cap PO DAILY 04/04/21 11/04/21 [Ocuvite Adult 50 Plus Softgel] Melatonin 1 tab PO QPM 04/04/21 11/04/21 Carbidopa/Levodopa ER 50/200 1 tab PO QPM 07/31/21 11/04/21 [Sinemet Cr 50 mg/200 mg] Furosemide [Lasix] 20 mg PO DAILY #30 tablet 08/01/21 11/04/21 Gabapentin [Neurontin] 200 mg PO HS 08/01/21 11/04/21 Nitroglycerin [Nitrostat] 0.4 mg SL Q5MIN PRN #100 tablet 08/01/21 11/04/21 ondansetron HCL [Ondansetron HCl] 8 mg PO Q8HR PRN 11/03/21 11/04/21 Metoprolol Succinate [Toprol Xl] 12.5 mg PO DAILY 11/04/21 11/04/21 Rivaroxaban [Xarelto] 20 mg PO DAILY 11/04/21 11/04/21 - LABS Result Diagrams: 11/04/21 11:17 11/04/21 11:17
[2021-11-04] MEDS ORDERED: SODIUM CHLORIDE FLUSH 0.9% 10 ML SYRINGE IVP SCH (17:00)
[2021-11-04] MEDS ORDERED: ACYCLOVIR 400 MG PO SCH (21:00)
[2021-11-04] MEDS ORDERED: guaiFENesin 600 MG TABLET PO SCH (21:00)
[2021-11-04] MEDS ORDERED: GABAPENTIN 100 MG CAPSULE PO SCH (21:00)
[2021-11-04] MEDS ORDERED: CARBIDOPA/LEVODOPA ER 50 MG/200 MG TABLET PO SCH (21:00)
[2021-11-04] MEDS ORDERED: ATORVASTATIN 40 MG TABLET PO SCH (21:00)
[2021-11-04] MEDS ORDERED: MELATONIN 1 MG PO SCH (21:00)
[2021-11-04] MEDS ORDERED: METOPROLOL SUCCINATE 25 MG TABLET PO SCH (21:00)
[2021-11-05] MEDS ORDERED: FUROSEMIDE 20 MG TABLET PO SCH (09:00)
[2021-11-05] MEDS ORDERED: TOLTERODINE TARTRATE 4 MG PO SCH (09:00)
[2021-11-05] MEDS ORDERED: FOLIC ACID PO SCH (09:00)
[2021-11-05] MEDS ORDERED: NON FORMULARY MED (Rivaroxaban [Xarelto] 20 MG Tablet) PO SCH (09:00)
[2021-11-05] MEDS ORDERED: MULTIVITAMIN PO SCH (09:00)
[2021-11-05] MEDS ORDERED: IRON PO SCH (09:00)
[2021-11-05] MEDS ORDERED: NON FORMULARY MED (Esomeprazole Magnesium [Nexium] 40 MG Capsule.Dr) PO SCH (09:00)
[2021-11-05] MEDS ORDERED: FINASTERIDE 5 MG TABLET PO SCH (09:00)
[2021-11-05] MEDS ORDERED: GABAPENTIN 300 MG CAPSULE PO SCH (15:00)
== END 2021-11-04 16:16 | disposition expired | DRG 871 ==
LOC: ED 10:48 → MS2 13:22
PROVIDERS: ADMIT Internal Medicine; ATTEND Internal Medicine
DX: A41.9 Sepsis, unspecified organism (principal); D61.810 Antineoplastic chemotherapy induced pancytopenia; D61.818 Other pancytopenia; E87.2 Acidosis; Z20.822 Contact with and (suspected) exposure to COVID-19; J18.9 Pneumonia, unspecified organism; D46.9 Myelodysplastic syndrome, unspecified; I48.91 Unspecified atrial fibrillation; I25.10 Atherosclerotic heart disease of native coronary artery without angina pectoris; I50.9 Heart failure, unspecified; E78.00 Pure hypercholesterolemia, unspecified; G25.81 Restless legs syndrome; F32.A Depression, unspecified; K21.9 Gastro-esophageal reflux disease without esophagitis; K59.00 Constipation, unspecified; T45.1X5A Adverse effect of antineoplastic and immunosuppressive drugs, initial encounter; Z95.1 Presence of aortocoronary bypass graft; Z95.810 Presence of automatic (implantable) cardiac defibrillator
CPT/HCPCS: 36415; 71045; 80053; 83605; 85025; 86850; 86900; 86901; 86920; 87040; 87070; 87205; 87633; 92950; 93005; 94640; 94664; A9270; J0282; P9040